=== PATIENT | female | born 1955 | race African-American/Black ===

== ENCOUNTER 2018-03-08 08:02 | Inpatient (IN) | payer OTHER ==
[~2018-03-08] VITALS: Ht 162.6 cm; Wt 102.1 kg
--- OUTSIDE RECORDS SUMMARY | 2018-03-08 14:56 | XMS REPORT | Clinical Summary ---
Author Author [facility] Address Unknown Phone Unavailable Care Team Providers Care Watch Parts Inspector Name Role Phone PCP Unavailable Allergies No Known Allergies Current Medications Prescription Sig. Disp. Refills Start End Date Status Date dulaglutide 1.5 mg/0.5 mL Inject 1.5 mg Active PnIj subcutaneously every 7 days. insulin glargine (LANTUS) Inject subcutaneously Active 100 unit/mL injection nightly 300 units/ ml . amLODIPine (NORVASC) 10 Take 10 mg by mouth Active MG tablet daily. lovastatin (MEVACOR) 20 Take 20 mg by mouth Active MG tablet nightly. lisinopril Take 20 mg by mouth Active (PRINIVIL,ZESTRIL) 20 MG daily. tablet b complex vitamins tablet Take 1 tablet by mouth Active daily. acetaminophen (TYLENOL) Take 500 mg by mouth Active 500 MG tablet every 6 (six) hours as needed for Pain. carvedilol (COREG) 25 MG Take 25 mg by mouth 2 Active tablet (two) times daily with breakfast and dinner. aspirin 81 MG EC tablet Take 81 mg by mouth Active daily. spironolactone Take 50 mg by mouth 2 Active (ALDACTONE) 50 MG tablet (two) times daily. insulin lispro (HUMALOG) Inject 10 Units Active 100 unit/mL InPn subcutaneously 3 (three) times daily with meals. brimonidine (ALPHAGAN P) every 8 (eight) hours. Active 0.1 % Drop sulfamethoxazole-trimetho Take 1 tablet by mouth 2 03/20/20 Discontin prim (BACTRIM DS) 800-160 (two) times daily. 17 ued mg per tablet amoxicillin-clavulanate Take 1 tablet by mouth 2 03/20/20 Discontin (AUGMENTIN) 875-125 mg (two) times daily. 17 ued per tablet canagliflozin (INVOKANA) Take 300 mg by mouth 03/20/20 Discontin 300 mg tablet daily. 17 ued esomeprazole (NEXIUM) 40 Take 40 mg by mouth 03/20/20 Discontin MG capsule daily. 17 ued tobramycin-dexamethasone 1 drop every 4 (four) 03/20/20 Discontin (TOBRADEX) 0.3-0.1 % hours while awake. 17 ued ophthalmic solution moxifloxacin (VIGAMOX) 1 drop 3 (three) times 03/20/20 Discontin 0.5 % ophthalmic solution daily. 17 ued hydrALAZINE (APRESOLINE) Take 1 tablet (25 mg 90 tablet 11 05/25/20 05/25/20 25 MG tablet total) by mouth 3 (three) 16 17 times daily. Active Problems Problem Noted Date Syncope, unspecified syncope type 01/17/2017 Hypertensive urgency 01/17/2017 Dysuria 01/17/2017 Chest pain, unspecified 05/23/2016 Coronary artery disease Diabetes mellitus (HCC) Hypertension Encounters Date Type Specialty Care Team Description 03/20/2017 Emergency Emergency Medicine Beulah Park MD Altered mental status, unspecified altered mental status type;Abnormal blood sugar 03/20/2017 Orders Only General Internal Medicine after 03/07/2017 Social History Tobacco Use Types Packs/Day Years Used Date Never Smoker Alcohol Use Drinks/Week oz/Week Comments No Sex Assigned at Date Recorded Not on file Last Filed Vital Signs Vital Sign Reading Time Taken Blood Pressure 153/67 03/20/2017 11:00 PM CDT Pulse 70 03/20/2017 11:00 PM CDT Temperature 36.3 C (97.4 F) 03/20/2017 9:08 PM CDT Respiratory Rate 16 03/20/2017 11:00 PM CDT Oxygen Saturation 99% 03/20/2017 11:00 PM CDT Inhaled Oxygen - - Concentration Weight 98 kg (216 lb) 03/20/2017 9:08 PM CDT Height 167.6 cm (5' 6") 03/20/2017 9:08 PM CDT Body Mass Index 34.86 03/20/2017 9:08 PM CDT Plan of Treatment Not on file Results * ED ECG Interpretation (03/20/2017 11:38 PM) Narrative Beulah Park MD 03/20/2017 11:38 PM History Chief Complaint Patient presents with Altered Mental Status HPI Comments: 61 y/o female presents with altered mental status, difficult to arouse, onset 1300. Per family, patient appears altered, checked her blood sugar and it was in low 50s.Gave juice and sent to ER. Patient with h/o CVA, with chronic LUE weakness. Denies vomiting. Report symptom has since improved. Patient report poor appetite and only had 1 ensure today. Given insulin without checking blood sugar. Patient is a 61 y.o. female presenting with altered mental status. The history is provided by the patient and a relative. No language teacher was used. Altered Mental Status This is a new problem. The problem has not changed since onset.Associated symptoms include confusion and unresponsiveness. Pertinent negatives include no fever. The altered mental status is exacerbated by nothing. No Known Allergies Past Medical History Diagnosis Date Coronary artery disease Diabetes mellitus (HCC) Hypertension Asthma Stroke (HCC) Past Surgical History Procedure Laterality Date Hysterectomy Other surgical history loop recorder History reviewed. No pertinent family history. History Substance Use Topics Smoking status: Never Smoker Smokeless tobacco: Not on file Alcohol Use: No Review of Systems Constitutional: Negative for fever. Gastrointestinal: Negative for vomiting. Skin: Negative for rash. Psychiatric/Behavioral: Positive for confusion. All other systems reviewed and are negative. Physical Exam BP 154/78 | Pulse 74 | Temp(Src) 97.4 F (36.3 C) (Oral) | Resp 20 | Ht 1.676 m (5' 6") | Wt 97.977 kg (216 lb) | BMI 34.88 kg/m2 Physical Exam Nursing note and vitals reviewed. Constitutional: She is oriented to person, place, and time. She appears well-developed and well-nourished. No distress. HENT: Head: Normocephalic and atraumatic. Eyes: Right eye exhibits no discharge. Left eye exhibits no discharge. Neck: No tracheal deviation present. Cardiovascular: Normal rate and regular rhythm. Pulmonary/Chest: Effort normal and breath sounds normal. No stridor. No respiratory distress. Abdominal: Soft. Bowel sounds are normal. There is no tenderness. Musculoskeletal: Normal range of motion. She exhibits edema ( +1 pitting edema). She exhibits no tenderness. Neurological: She is alert and oriented to person, place, and time. No cranial nerve deficit. Skin: Skin is warm and dry. She is not diaphoretic. Psychiatric: She has a normal mood and affect. Her behavior is normal. Neurologic Exam Mental Status Oriented to person, place, and time. Ortho Exam ED Course ECG/EKG Interpretation Date/Time: 03/20/2017 11:36 PM Performed by: BEULAH PARK Authorized by: BEULAH PARK The ECG was interpreted by ED physician. The ECG is interpreted as sinus rhythm. Rate is normal rate. Heart rate is [address] segments normal. ECG reviewed and does not meet STEMI criteria. MDM Number of Diagnoses or Management Options Abnormal blood sugar: established and worsening Altered mental status, unspecified altered mental status type: new and requires workup Amount and/or Complexity of Data Reviewed Clinical lab tests: reviewed and ordered Tests in the radiology section of CPT: ordered and reviewed Risk of Complications, Morbidity, and/or Mortality Presenting problems: high Diagnostic procedures: moderate Management options: moderate Patient Progress Patient progress: stable Clinical Impression 1. Altered mental status, unspecified altered mental status type 2. Abnormal blood sugar Discharge Medications Medication List ASK your doctor about these medications acetaminophen 500 MG tabletCommonly known as:TYLENOL amLODIPine 10 MG tabletCommonly known as:NORVASC aspirin 81 MG EC tablet b complex vitamins tablet brimonidine 0.1 % DropCommonly known as:ALPHAGAN P carvedilol 25 MG tabletCommonly known as:COREG dulaglutide 1.5 mg/0.5 mL Pnij hydrALAZINE 25 MG tabletCommonly known as:APRESOLINETake 1 tablet (25 mg total) by mouth 3 (three) times daily. insulin glargine 100 unit/mL injectionCommonly known as:LANTUS insulin lispro 100 unit/mL InpnCommonly known as:HumaLOG lisinopril 20 MG tabletCommonly known as:PRINIVIL,ZESTRIL lovastatin 20 MG tabletCommonly known as:MEVACOR spironolactone 50 MG tabletCommonly known as:ALDACTONE Plan Symptoms c/w hypoglycemia. BS in ER improving. Patient eating sandwich in ER. Comfortable, in NAD. Family at bedside. Patient has returned to baseline. On re-eval, pt is improved, comfortable, in NAD, with normal mental status, ambulatory in ED, and tolerating PO.Vital signs stable.No emergent need for hospitalization is identified at this time.D/w pt close f/u instructions for within 24-48 hrs, as well as specific return precautions to ED.RN notes acknowledged, differences noted.All history and exam data obtained on date of service. Provided with anticipatory guidance, strict return precautions, and discharge instructions.Patient verbalizes understanding and will have follow up. Procedure Note Beulah Park MD - 03/20/2017 11:23 PM CDT Formatting of this note may be different from the original. History Chief Complaint Patient presents with Altered Mental Status HPI Comments: 61 y/o female presents with altered mental status, difficult to arouse, onset 1300. Per family, patient appears altered, checked her blood sugar and it was in low 50s. Gave juice and sent to ER. Patient with h/o CVA, with chronic LUE weakness. Denies vomiting. Report symptom has since improved. Patient report poor appetite and only had 1 ensure today. Given insulin without checking blood sugar. Patient is a 61 y.o. female presenting with altered mental status. The history is provided by the patient and a relative. No language teacher was used. Altered Mental Status This is a new problem. The problem has not changed since onset.Associated symptoms include confusion and unresponsiveness. Pertinent negatives include no fever. The altered mental status is exacerbated by nothing. No Known Allergies Past Medical History Diagnosis Date Coronary artery disease Diabetes mellitus (HCC) Hypertension Asthma Stroke (HCC) Past Surgical History Procedure Laterality Date Hysterectomy Other surgical history loop recorder History reviewed. No pertinent family history. History Substance Use Topics Smoking status: Never Smoker Smokeless tobacco: Not on file Alcohol Use: No Review of Systems Constitutional: Negative for fever. Gastrointestinal: Negative for vomiting. Skin: Negative for rash. Psychiatric/Behavioral: Positive for confusion. All other systems reviewed and are negative. Physical Exam BP 154/78 | Pulse 74 | Temp(Src) 97.4 F (36.3 C) (Oral) | Resp 20 | Ht 1.676 m (5' 6") | Wt 97.977 kg (216 lb) | BMI 34.88 kg/m2 Physical Exam Nursing note and vitals reviewed. Constitutional: She is oriented to person, place, and time. She appears well- developed and well-nourished. No distress. HENT: Head: Normocephalic and atraumatic. Eyes: Right eye exhibits no discharge. Left eye exhibits no discharge. Neck: No tracheal deviation present. Cardiovascular: Normal rate and regular rhythm. Pulmonary/Chest: Effort normal and breath sounds normal. No stridor. No respiratory distress. Abdominal: Soft. Bowel sounds are normal. There is no tenderness. Musculoskeletal: Normal range of motion. She exhibits edema ( +1 pitting edema) . She exhibits no tenderness. Neurological: She is alert and oriented to person, place, and time. No cranial nerve deficit. Skin: Skin is warm and dry. She is not diaphoretic. Psychiatric: She has a normal mood and affect. Her behavior is normal. Neurologic Exam Mental Status Oriented to person, place, and time. Ortho Exam ED Course ECG/EKG Interpretation Date/Time: 03/20/2017 11:36 PM Performed by: BEULAH PARK Authorized by: BEULAH PARK The ECG was interpreted by ED physician. The ECG is interpreted as sinus rhythm. Rate is normal rate. Heart rate is [address] segments normal. ECG reviewed and does not meet STEMI criteria. MDM Number of Diagnoses or Management Options Abnormal blood sugar: established and worsening Altered mental status, unspecified altered mental status type: new and requires workup Amount and/or Complexity of Data Reviewed Clinical lab tests: reviewed and ordered Tests in the radiology section of CPT: ordered and reviewed Risk of Complications, Morbidity, and/or Mortality Presenting problems: high Diagnostic procedures: moderate Management options: moderate Patient Progress Patient progress: stable Clinical Impression 1. Altered mental status, unspecified altered mental status type 2. Abnormal blood sugar Discharge Medications Medication List ASK your doctor about these medications acetaminophen 500 MG tablet Commonly known as: TYLENOL amLODIPine 10 MG tablet Commonly known as: NORVASC aspirin 81 MG EC tablet b complex vitamins tablet brimonidine 0.1 % Drop Commonly known as: ALPHAGAN P carvedilol 25 MG tablet Commonly known as: COREG dulaglutide 1.5 mg/0.5 mL Pnij hydrALAZINE 25 MG tablet Commonly known as: APRESOLINE Take 1 tablet (25 mg total) by mouth 3 (three) times daily. insulin glargine 100 unit/mL injection Commonly known as: LANTUS insulin lispro 100 unit/mL Inpn Commonly known as: HumaLOG lisinopril 20 MG tablet Commonly known as: PRINIVIL,ZESTRIL lovastatin 20 MG tablet Commonly known as: MEVACOR spironolactone 50 MG tablet Commonly known as: ALDACTONE Plan Symptoms c/w hypoglycemia. BS in ER improving. Patient eating sandwich in ER. Comfortable, in NAD. Family at bedside. Patient has returned to baseline. On re-eval, pt is improved, comfortable, in NAD, with normal mental status, ambulatory in ED, and tolerating PO. Vital signs stable. No emergent need for hospitalization is identified at this time. D/w pt close f/u instructions for within 24-48 hrs, as well as specific return precautions to ED. RN notes acknowledged, differences noted. All history and exam data obtained on date of service. Provided with anticipatory guidance, strict return precautions, and discharge instructions. Patient verbalizes understanding and will have follow up. Beulah Park MD 03/20/17 [id number] * Rapid drug screen, urine (03/20/2017 10:13 PM) Component Value Ref Range Barbiturate Screen Negative Negative Benzodiazepine Screen Negative Negative Cocaine (Metab.) Screen Negative Negative Methadone Screen Negative Negative Opiate Screen Negative Negative Cannabinoid Screen Negative Negative Amph/Methamph Screen Negative Negative Phencyclidine Screen Negative Negative Oxycodone Screen Negative Negative Specimen Performing Laboratory Urine [facility] [address] [address] Narrative DRUGCUTOFF CONC. Cocaine 300 ng/mL [id number] ng/mL [id number] ng/mL Barbiturate 200 ng/mL [id number] ng/mL [id number] ng/mL Methadone 300 ng/mL Amphetamine/ 1000 ng/mL Methamphetamine Oxycodone 300 ng/mL * Urinalysis w/ Microscopic (03/20/2017 10:13 PM) Component Value Ref Range Color, UA Yellow Clarity, UA Hazy Specific [place], UA 1.013 1.001 - 1.035 pH, UA 6.0 5.0 - 8.0 Protein, UA 600 mg/dL (A) Negative Glucose, UA Negative Negative Ketones, UA Negative Negative Bilirubin, UA Negative Negative Blood, UA Trace (A) Negative Nitrite, UA Negative Negative Leukocytes, UA Negative Negative Urobilinogen, UA 0.2 0.2 - 1.0 mg/dL RBC, UA Comment: None Seen /HPF WBC, UA Comment: None Seen /HPF Bacteria, UA Few Specimen Source Specimen Performing Laboratory Urine [address] [address] * ECG 12 lead (03/20/2017 9:41 PM) Specimen Performing Laboratory GE MUSE Narrative Ventricular Rate 74 BPM Atrial Rate 74 BPM P-R Interval 162 ms QRS Duration 102 ms Q-T Interval 454 ms QTC Calculation(Bazett) 503 ms P [place] 73 degrees R [place] 66 degrees T [place] 51 degrees Normal sinus rhythm Prolonged QT Abnormal ECG When compared with ECG of 11-FEB-2017 18:32, Incomplete right bundle branch block is no longer Present Confirmed by Jeff MIJARES MICHAEL ([id number]) on 03/21/2017 6:49:24 AM Procedure Note Interface, External Ris In - 03/21/2017 6:49 AM CDT Ventricular Rate 74 BPM Atrial Rate 74 BPM P-R Interval 162 ms QRS Duration 102 ms Q-T Interval 454 ms QTC Calculation(Bazett) 503 ms P [place] 73 degrees R [place] 66 degrees T [place] 51 degrees Normal sinus rhythm Prolonged QT Abnormal ECG When compared with ECG of 11-FEB-2017 18:32, Incomplete right bundle branch block is no longer Present Confirmed by Jeff MIJARES MICHAEL ([id number]) on 03/21/2017 6:49:24 AM * PT/PTT (03/20/2017 9:35 PM) Component Value Ref Range Protime 14.8 (H) 11.7 - 14.7 seconds INR 1.2 <=5.9 PTT 33.3 22.5 - 36.0 seconds Specimen Performing Laboratory Blood [address] [address] Narrative RECOMMENDED COUMADIN/WARFARIN INR THERAPY RANGES STANDARD DOSE: 2.0 - 3.0 Includes: PROPHYLAXIS for venous thrombosis, systemic embolization; TREATMENT for venous thrombosis and/or pulmonary embolus. HIGH RISK: Target INR is 2.5-3.5 for patients with mechanical heart valves. * CBC with platelet count + automated diff (03/20/2017 9:35 PM) Component Value Ref Range WBC 8.3 4.0 - 10.0 K/ L RBC 4.04 4.00 - 5.00 M/ L Hemoglobin 10.7 (L) 12.0 - 15.0 GM/DL Hematocrit 32.8 (L) 36.0 - 45.0 % MCV 81.1 (L) 82.0 - 99.0 fL MCH 26.4 (L) 27.0 - 33.0 pg MCHC 32.6 32.0 - 36.0 GM/DL RDW 14.8 (H) 10.3 - 14.2 % Platelets 232 150 - 430 K/CU MM MPV 8.5 6.5 - 10.5 fL nRBC 0 0 - 0 /100 WBC % Neutros 82 % % Lymphs 14 % % Monos 3 % % Eos 1 % % Baso 0 % # Neutros 6.76 1.80 - 8.00 K/ L # Lymphs 1.18 (L) 1.48 - 4.50 K/ L # Monos 0.21 0.00 - 1.30 K/ L # Eos 0.08 0.00 - 0.50 K/ L # Baso 0.03 0.00 - 0.20 K/ L Specimen Performing Laboratory Blood [address] [address] Narrative 0.00 * Troponin I (03/20/2017 9:35 PM) Component Value Ref Range Troponin I <0.01 0.00 - 0.03 ng/mL Specimen Performing Laboratory Blood [address] [address] Narrative Effective 10/01/2014: Reference Range Change New: 0.00-0.03 Previous 0.00-0.15 Troponin I (TnI) levels must be interpreted in the context of the presenting symptoms and the clinical findings. Elevated TnI levels indicate myocardial damage, but are not specific for ischemic heart disease. Elevated TnI levels are seen in patients with other cardiac conditions (including myocarditis and congestive heart failure), and slight TnI elevations occur in patients with other conditions, including sepsis, renal failure, acidosis, acute neurological disease, and persistent tachyarrhythmia. Order for age greater than 18 with no history of head injury or liver disease patients of any age Order for age greater than 18 with no history of head injury or liver disease patients of any age * CBC with platelet count + automated diff (03/20/2017 9:35 PM) Specimen Performing Laboratory Blood Narrative The following orders were created for panel order CBC with platelet count + automated diff. Procedure Abnormality Status --------- - ------ CBC with platelet count ...[[id number]]AbnormalFinal result Please view results for these tests on the individual orders. * Phosphorus (03/20/2017 9:35 PM) Component Value Ref Range Phosphorus 3.6 2.3 - 4.7 mg/dL Specimen Performing Laboratory Blood [address] [address] Narrative Order for age greater than 18 with no history of head injury or liver disease patients of any age Order for age greater than 18 with no history of head injury or liver disease patients of any age * Magnesium (03/20/2017 9:35 PM) Component Value Ref Range Magnesium 1.9 1.6 - 2.6 mg/dL Specimen Performing Laboratory Blood [address] [address] Narrative Order for age greater than 18 with no history of head injury or liver disease patients of any age Order for age greater than 18 with no history of head injury or liver disease patients of any age * CK total and CKMB (03/20/2017 9:35 PM) Component Value Ref Range Total CK 215 (H) 29 - 200 U/L CK-MB 1.0 0.0 - 6.6 ng/mL MB Relative Index 0.5 % Specimen Performing Laboratory Blood [address] [address] Narrative Effective 10/01/2014: CK-MB Reference Range Change New: 0.0-6.6Previous: 0.0-4.9 CK-MB Reference Range: <6.7Normal 6.7-10.0Borderline >10.0 Abnormal Order for age greater than 18 with no history of head injury or liver disease patients of any age Order for age greater than 18 with no history of head injury or liver disease patients of any age Order for age greater than 18 with no history of head injury or liver disease patients of any age Order for age greater than 18 with no history of head injury or liver disease patients of any age * Basic Metabolic Panel (03/20/2017 9:35 PM) Component Value Ref Range Sodium 141 136 - 145 meq/L Potassium 3.9 3.5 - 5.1 meq/L Chloride 112 (H) 98 - 107 meq/L CO2 19 (L) 22 - 29 meq/L BUN 19 7 - 21 mg/dL Creatinine 1.21 0.57 - 1.25 mg/dL Glucose 224 (H) 70 - 105 mg/dL Calcium 9.4 8.4 - 10.2 mg/dL EGFR 55Comment: ESTIMATED GFR IS NOT ACCURATE mL/min/1.73 sq m CREATININE CLEARANCE IN PREDICTING GLOMERULAR FILTRATION RATE. ESTIMATED GFR IS NOT APPLICABLE FOR DIALYSIS PATIENTS. Specimen Performing [place] [address] Narrative Order for age greater than 18 with no history of head injury or liver disease patients of any age Order for age greater than 18 with no history of head injury or liver disease patients of any age * CT brain without IV contrast (03/20/2017 9:26 PM) Specimen Performing Laboratory [facility] Narrative FINAL REPORT Examination: CT brain without contrast. HISTORY: confusion Comparison:February 11, 2017 TECHNIQUE:5mm sequential noncontrast axial CT images from the base to apex of the brain. This exam was performed to our departmental dose optimization program which includes automated exposure control, adjustment of the mA and/or kV according to patient size and/or use of iterative reconstruction techniques. FINDINGS:The ventricles and sulci are mildly prominent. Multifocal periventricular deep white matter hypodensities are present. Cavernous carotid calcifications..No acute hemorrhage, infarction, mass or midline shift. The paranasal sinuses and mastoid air cells are clear. Demonstrated orbits are unremarkable. Bilateral lens replacements. No significant soft tissue swelling. Calvarium is intact. IMPRESSION:No acute intracranial abnormality. Chronic ischemic changes and volume loss. Signed: Danny Padron MD Report Verified Date/Time:03/20/2017 21:42:55 Reading Location: [address] Transitional Reading Room Procedure Note Interface, External Ris In - 03/20/2017 9:48 PM CDT FINAL REPORT Examination: CT brain without contrast. HISTORY: confusion Comparison:February 11, 2017 TECHNIQUE: 5mm sequential noncontrast axial CT images from the base to apex of the brain. This exam was performed to our departmental dose optimization program which includes automated exposure control, adjustment of the mA and/or kV according to patient size and/or use of iterative reconstruction techniques. FINDINGS: The ventricles and sulci are mildly prominent. Multifocal periventricular deep white matter hypodensities are present. Cavernous carotid calcifications.. No acute hemorrhage, infarction, mass or midline shift. The paranasal sinuses and mastoid air cells are clear. Demonstrated orbits are unremarkable. Bilateral lens replacements. No significant soft tissue swelling. Calvarium is intact. IMPRESSION: No acute intracranial abnormality. Chronic ischemic changes and volume loss. Signed: Danny Padron MD Report Verified Date/Time: 03/20/2017 21:42:55 Reading Location: [facility] Transitional Reading Room after 03/07/2017
--- OUTSIDE RECORDS SUMMARY | 2018-03-08 14:56 | XMS REPORT ---
Author Author [facility] Address Unknown Phone Unavailable Care Team Providers Care Retail Department Manager Name Role Phone BEULAH PARK Unavailable Unavailable BEERAVEL Espinoza Unavailable Unavailable Problems This patient has no known problems. Allergies, Adverse Reactions, Alerts This patient has no known allergies or adverse reactions. Medications This patient has no known medications. Results Test Description Test Time Test Comments Text Results Atomic Results Result Comments RAPID DRUG SCREEN, URINE 2017-03-20 22:45:00 BARBITURATE URINE (BEAKER) (test uxiq=482) Negative Negative BENZODIAZEPINE SCREEN URINE (BEAKER) (test krwp=610) Negative Negative COCAINE (METAB.) SCREEN (BEAKER) (test bmmi=2504) Negative Negative METHADONE SCREEN (BEAKER) (test cbnn=9803) Negative Negative OPIATE SCREEN URINE (BEAKER) (test zvmw=878) Negative Negative CANNABINOID SCREEN URINE (BEAKER) (test sglj=159) Negative Negative AMPH/METHAMPH SCREEN (BEAKER) (test fatu=8759) Negative Negative PHENCYCLIDINE SCREEN URINE (BEAKER) (test mjkd=321) Negative Negative OXYCODONE SCREEN URINE (BEAKER) (test jmks=5463) Negative Negative DRUG CUTOFF CONC.Cocaine 300 ng/mL Cannabinoid 50 ng/mL Benzodiazepine 200 ng/mLBarbiturate 200 ng/ mLPhencyclidine 25 ng/mLOpiate 300 ng/mLMethadone 300 ng/mLAmphetamine/ 1000 ng/mL MethamphetamineOxycodone 300 ng/mLURINALYSIS W/ [id number] 22:37:00* Test Item Value Reference Range Comments COLOR (BEAKER) (test zegy=031) Yellow CLARITY (BEAKER) (test jclc=915) Hazy SPECIFIC GRAVITY UA (BEAKER) (test duqm=570) 1.013 1.001-1.035 PH UA (BEAKER) (test csrv=715) 6.0 5.0-8.0 PROTEIN UA (BEAKER) (test andk=111) 600 mg/dL Negative GLUCOSE UA (BEAKER) (test flpo=930) Negative Negative KETONES UA (BEAKER) (test oxju=230) Negative Negative BILIRUBIN UA (BEAKER) (test seun=415) Negative Negative BLOOD UA (BEAKER) (test ajvs=933) Trace Negative NITRITE UA (BEAKER) (test xotw=485) Negative Negative LEUKOCYTE ESTERASE UA (BEAKER) (test otfc=309) Negative Negative UROBILINOGEN UA (BEAKER) (test zisw=275) 0.2 mg/dL 0.2-1.0 RBC UA (BEAKER) (test xnzu=794) /HPF None Seen WBC UA (BEAKER) (test emqz=422) /HPF None Seen BACTERIA (BEAKER) (test knoe=077) Few SOURCE(BEAKER) (test wxvo=2834) CREATINE KINASE (CK), TOTAL AND [id number] 22:22:00* Test Item Value Reference Range Comments CREATINE KINASE TOTAL (BEAKER) (test erii=540) 215 U/L 29-200 CREATINE KINASE-MB (BEAKER) (test nwar=166) 1.0 ng/mL 0.0-6.6 CREATINE KINASE-MB INDEX (BEAKER) (test zcqh=473) 0.5 % Effective 10/01/2014: CK-MB Reference Range ChangeNew: 0.0-6.6 Previous: 0.0- 4.9CK-MB Reference Range:<6.7 Normal6.7-10.0 Borderline>10.0 AbnormalOrder for age greater than 18 with no history of head injury or liver disease patients of any ageOrder for age greater than 18 with no history of head injury or liver disease patients of any ageOrder for age greater than 18 with no history of head injury or liver disease patients of any ageOrder for age greater than 18 with no history of head injury or liver disease patients of any ageTROPONIN [id number] 22:22:00* Test Item Value Reference Range Comments TROPONIN I (BEAKER) (test cnng=670) < ng/mL 0.00-0.03 Effective 10/01/2014: Reference Range ChangeNew: 0.00-0.03 Previous 0.00- 0.15Troponin I (TnI) levels must be interpreted in [...] failure, acidosis, acute neurological disease, and persistent tachyarrhythmia.Order for age greater than 18 with no history of head injury or liver disease patients of any ageOrder for age greater than 18 with no history of head injury or liver disease patients of any [id number] 22:16:00* Test Item Value Reference Range Comments PHOSPHORUS (BEAKER) (test cgjf=298) 3.6 mg/dL 2.3-4.7 Order for age greater than 18 with no history of head injury or liver disease patients of any ageOrder for age greater than 18 with no history of head injury or liver disease patients of any [id number] 22:16:00* Test Item Value Reference Range Comments MAGNESIUM (BEAKER) (test cjsi=397) 1.9 mg/dL 1.6-2.6 Order for age greater than 18 with no history of head injury or liver disease patients of any ageOrder for age greater than 18 with no history of head injury or liver disease patients of any ageBASIC METABOLIC [id number] 22:16:00* Test Item Value Reference Range Comments SODIUM (BEAKER) (test vurv=604) 141 meq/L 136-145 POTASSIUM (BEAKER) (test gplx=685) 3.9 meq/L 3.5-5.1 CHLORIDE (BEAKER) (test prro=573) 112 meq/L 98-107 CO2 (BEAKER) (test vgki=115) 19 meq/L 22-29 BLOOD UREA NITROGEN (BEAKER) (test jiwn=086) 19 mg/dL 7-21 CREATININE (BEAKER) (test gahp=597) 1.21 mg/dL 0.57-1.25 GLUCOSE RANDOM (BEAKER) (test crxo=849) 224 mg/dL 70-105 CALCIUM (BEAKER) (test hdmr=869) 9.4 mg/dL 8.4-10.2 EGFR (BEAKER) (test jhcb=2980) 55 mL/min/1.73 sq m ESTIMATED GFR IS NOT ACCURATE CREATININE CLEARANCE IN PREDICTING GLOMERULAR FILTRATION RATE. ESTIMATED GFR IS NOT APPLICABLE FOR DIALYSIS PATIENTS. Order for age greater than 18 with no history of head injury or liver disease patients of any ageOrder for age greater than 18 with no history of head injury or liver disease patients of any agePT/[id number] 22:02:00* Test Item Value Reference Range Comments PROTIME (BEAKER) (test oiyx=685) 14.8 seconds 11.7-14.7 INR (BEAKER) (test fjkh=844) 1.2 <=5.9 PARTIAL THROMBOPLASTIN TIME (BEAKER) (test cqsm=880) 33.3 seconds 22.5-36.0 RECOMMENDED COUMADIN/WARFARIN INR THERAPY RANGESSTANDARD DOSE: 2.0 - 3.0 Includes: PROPHYLAXIS for venous thrombosis, systemic embolization; TREATMENT for venous thrombosis and/or pulmonary embolus.HIGH RISK: Target INR is 2.5-3.5 for patients with mechanical heart valves.CBC W/PLT COUNT & AUTO [id number] 21:53:00* Test Item Value Reference Range Comments WHITE BLOOD CELL COUNT (BEAKER) (test ciip=646) 8.3 K/ L 4.0-10.0 RED BLOOD CELL COUNT (BEAKER) (test tank=632) 4.04 M/ L 4.00-5.00 HEMOGLOBIN (BEAKER) (test wsii=513) 10.7 GM/DL 12.0-15.0 HEMATOCRIT (BEAKER) (test nhhz=217) 32.8 % 36.0-45.0 MEAN CORPUSCULAR VOLUME (BEAKER) (test sgvp=066) 81.1 fL 82.0-99.0 MEAN CORPUSCULAR HEMOGLOBIN (BEAKER) (test msli=494) 26.4 pg 27.0-33.0 MEAN CORPUSCULAR HEMOGLOBIN CONC (BEAKER) (test lccx=161) 32.6 GM/DL 32.0- 36.0 RED CELL DISTRIBUTION WIDTH (BEAKER) (test jlyk=958) 14.8 % 10.3-14.2 PLATELET COUNT (BEAKER) (test alff=808) 232 K/CU MM 150-430 MEAN PLATELET VOLUME (BEAKER) (test ywhf=903) 8.5 fL 6.5-10.5 NUCLEATED RED BLOOD CELLS (BEAKER) (test mgpu=307) 0 /100 WBC 0-0 NEUTROPHILS RELATIVE PERCENT (BEAKER) (test pomg=004) 82 % LYMPHOCYTES RELATIVE PERCENT (BEAKER) (test lzyl=648) 14 % MONOCYTES RELATIVE PERCENT (BEAKER) (test usuu=639) 3 % EOSINOPHILS RELATIVE PERCENT (BEAKER) (test vgir=139) 1 % BASOPHILS RELATIVE PERCENT (BEAKER) (test cxae=768) 0 % NEUTROPHILS ABSOLUTE COUNT (BEAKER) (test ewfa=068) 6.76 K/ L 1.80-8.00 LYMPHOCYTES ABSOLUTE COUNT (BEAKER) (test hkuj=598) 1.18 K/ L 1.48-4.50 MONOCYTES ABSOLUTE COUNT (BEAKER) (test amfe=378) 0.21 K/ L 0.00-1.30 EOSINOPHILS ABSOLUTE COUNT (BEAKER) (test zmzp=148) 0.08 K/ L 0.00-0.50 BASOPHILS ABSOLUTE COUNT (BEAKER) (test dzpq=973) 0.03 K/ L 0.00-0.20 0.00URINE [id number] 08:49:00* Test Item Value Reference Range Comments CULTURE (BEAKER) (test jfno=1958) STAPHYLOCOCCUS AUREUS >100,000 col/mL Staphylococcus aureus Clindamycin (test code=10) Erythromycin (test code=4) Linezolid (test code=40) Nitrofurantoin (test code=23) Oxacillin (test code=14) Rifampin (test code=43) Tetracycline (test code=2) Trimethoprim + Sulfamethoxazole (test code=47) Vancomycin (test code=13) 20-29,000 col/mL skin floraURINALYSIS W/ [id number] 00:33:00* Test Item Value Reference Range Comments COLOR (BEAKER) (test spms=213) Yellow CLARITY (BEAKER) (test wouv=878) Hazy SPECIFIC GRAVITY UA (BEAKER) (test jfqd=741) 1.012 1.001-1.035 PH UA (BEAKER) (test qctr=043) 6.0 5.0-8.0 PROTEIN UA (BEAKER) (test klvx=766) 600 mg/dL Negative GLUCOSE UA (BEAKER) (test sxzs=800) Negative Negative KETONES UA (BEAKER) (test dyaf=763) Negative Negative BILIRUBIN UA (BEAKER) (test fkoa=949) Negative Negative BLOOD UA (BEAKER) (test xtix=202) Negative Negative NITRITE UA (BEAKER) (test yntw=937) Negative Negative LEUKOCYTE ESTERASE UA (BEAKER) (test gbto=915) Small Negative UROBILINOGEN UA (BEAKER) (test eley=575) 0.2 mg/dL 0.2-1.0 RBC UA (BEAKER) (test chbg=189) 2 /HPF WBC UA (BEAKER) (test cpgi=511) 8 /HPF BACTERIA (BEAKER) (test yshs=461) Rare SQUAMOUS EPITHELIAL (BEAKER) (test hshe=734) 9 /HPF HYALINE CASTS (BEAKER) (test pnxe=787) 4 /LPF AMORPHOUS CRYSTALS (BEAKER) (test zsqc=8957) Occasional SOURCE(BEAKER) (test xxzv=4402) Urine, Voided [id number] 19:36:00* Test Item Value Reference Range Comments PROTIME (BEAKER) (test dijc=524) 14.2 seconds 11.7-14.7 INR (BEAKER) (test pkpf=322) 1.1 <=5.9 PARTIAL THROMBOPLASTIN TIME (BEAKER) (test aotq=864) 36.8 seconds 22.5-36.0 RECOMMENDED COUMADIN/WARFARIN INR THERAPY RANGESSTANDARD DOSE: 2.0 - 3.0 Includes: PROPHYLAXIS for venous thrombosis, systemic embolization; TREATMENT for venous thrombosis and/or pulmonary embolus.HIGH RISK: Target INR is 2.5-3.5 for patients with mechanical heart valves.CREATINE KINASE (CK), TOTAL AND [id number] 19:31:00* Test Item Value Reference Range Comments CREATINE KINASE TOTAL (BEAKER) (test gsri=695) 132 U/L 29-200 CREATINE KINASE-MB (BEAKER) (test iute=358) 0.4 ng/mL 0.0-6.6 CREATINE KINASE-MB INDEX (BEAKER) (test zkgu=856) 0.3 % Effective 10/01/2014: CK-MB Reference Range ChangeNew: 0.0-6.6 Previous: 0.0- 4.9CK-MB Reference Range:<6.7 Normal6.7-10.0 Borderline>10.0 AbnormalTROPONIN [id number] 19:31:00* Test Item Value Reference Range Comments TROPONIN I (BEAKER) (test sekp=554) < ng/mL 0.00-0.03 Effective 10/01/2014: Reference Range ChangeNew: 0.00-0.03 Previous 0.00- 0.15Troponin I (TnI) levels must be interpreted in [...] failure, acidosis, acute neurological disease, and persistent tachyarrhythmia.B-TYPE NATRIURETIC FACTOR (BNP)2017-02-11 19:30:00* Test Item Value Reference Range Comments B-TYPE NATRIURETIC PEPTIDE (BEAKER) (test fqxy=312) 81 pg/mL 0-100 [id number] 19:24:00* Test Item Value Reference Range Comments MAGNESIUM (BEAKER) (test micw=681) 1.8 mg/dL 1.6-2.6 BASIC METABOLIC [id number] 19:24:00* Test Item Value Reference Range Comments SODIUM (BEAKER) (test evza=240) 144 meq/L 136-145 POTASSIUM (BEAKER) (test jghs=170) 3.4 meq/L 3.5-5.1 CHLORIDE (BEAKER) (test hhmu=842) 115 meq/L 98-107 CO2 (BEAKER) (test ekgr=290) 20 meq/L 22-29 BLOOD UREA NITROGEN (BEAKER) (test sosp=200) 13 mg/dL 7-21 CREATININE (BEAKER) (test dpjp=785) 1.25 mg/dL 0.57-1.25 GLUCOSE RANDOM (BEAKER) (test muai=103) 77 mg/dL 70-105 CALCIUM (BEAKER) (test wdvw=174) 8.6 mg/dL 8.4-10.2 EGFR (BEAKER) (test wnyr=1647) 53 mL/min/1.73 sq m ESTIMATED GFR IS NOT ACCURATE CREATININE CLEARANCE IN PREDICTING GLOMERULAR FILTRATION RATE. ESTIMATED GFR IS NOT APPLICABLE FOR DIALYSIS PATIENTS. CBC W/PLT COUNT & AUTO [id number] 19:21:00* Test Item Value Reference Range Comments WHITE BLOOD CELL COUNT (BEAKER) (test oosc=223) 9.0 K/ L 4.0-10.0 RED BLOOD CELL COUNT (BEAKER) (test rcpf=967) 3.90 M/ L 4.00-5.00 HEMOGLOBIN (BEAKER) (test reso=328) 10.7 GM/DL 12.0-15.0 HEMATOCRIT (BEAKER) (test tlar=672) 32.8 % 36.0-45.0 MEAN CORPUSCULAR VOLUME (BEAKER) (test ixtz=204) 84.0 fL 82.0-99.0 MEAN CORPUSCULAR HEMOGLOBIN (BEAKER) (test nxej=299) 27.5 pg 27.0-33.0 MEAN CORPUSCULAR HEMOGLOBIN CONC (BEAKER) (test gggk=099) 32.7 GM/DL 32.0- 36.0 RED CELL DISTRIBUTION WIDTH (BEAKER) (test baot=653) 14.0 % 10.3-14.2 PLATELET COUNT (BEAKER) (test kqxa=798) 209 K/CU MM 150-430 MEAN PLATELET VOLUME (BEAKER) (test irye=390) 9.1 fL 6.5-10.5 NUCLEATED RED BLOOD CELLS (BEAKER) (test nhec=292) 0 /100 WBC 0-0 NEUTROPHILS RELATIVE PERCENT (BEAKER) (test kzmq=949) 80 % LYMPHOCYTES RELATIVE PERCENT (BEAKER) (test aiom=901) 13 % MONOCYTES RELATIVE PERCENT (BEAKER) (test upkz=531) 5 % EOSINOPHILS RELATIVE PERCENT (BEAKER) (test zvjq=348) 1 % BASOPHILS RELATIVE PERCENT (BEAKER) (test seks=130) 0 % NEUTROPHILS ABSOLUTE COUNT (BEAKER) (test izml=081) 7.22 K/ L 1.80-8.00 LYMPHOCYTES ABSOLUTE COUNT (BEAKER) (test mwku=222) 1.20 K/ L 1.48-4.50 MONOCYTES ABSOLUTE COUNT (BEAKER) (test elpi=720) 0.48 K/ L 0.00-1.30 EOSINOPHILS ABSOLUTE COUNT (BEAKER) (test rbln=059) 0.06 K/ L 0.00-0.50 BASOPHILS ABSOLUTE COUNT (BEAKER) (test ozvl=493) 0.02 K/ L 0.00-0.20 0.00POCT-GLUCOSE [id number] 12:12:00* Test Item Value Reference Range Comments POC-GLUCOSE METER (BEAKER) (test dfdy=8819) 179 mg/dL 70-110 TESTED AT [address] [address] POCT-GLUCOSE [id number] 08:11:00* Test Item Value Reference Range Comments POC-GLUCOSE METER (BEAKER) (test qaoc=7389) 82 mg/dL 70-110 TESTED AT [address] [address] POCT-GLUCOSE [id number] 21:17:00* Test Item Value Reference Range Comments POC-GLUCOSE METER (BEAKER) (test sphj=0766) 188 mg/dL 70-110 TESTED AT [address] [address] POCT-GLUCOSE [id number] 17:15:00* Test Item Value Reference Range Comments POC-GLUCOSE METER (BEAKER) (test vhlp=2862) 136 mg/dL 70-110 TESTED AT [address] [address] POCT-GLUCOSE [id number] 08:44:00* Test Item Value Reference Range Comments POC-GLUCOSE METER (BEAKER) (test djss=0740) 99 mg/dL 70-110 TESTED AT [address] [address] POCT-GLUCOSE [id number] 21:27:00* Test Item Value Reference Range Comments POC-GLUCOSE METER (BEAKER) (test qnuq=6102) 126 mg/dL 70-110 TESTED AT [address] [address] POCT-GLUCOSE [id number] 16:23:00* Test Item Value Reference Range Comments POC-GLUCOSE METER (BEAKER) (test gwzt=4623) 144 mg/dL 70-110 TESTED AT [address] [address] POCT-GLUCOSE [id number] 12:03:00* Test Item Value Reference Range Comments POC-GLUCOSE METER (BEAKER) (test nkbg=7785) 151 mg/dL 70-110 TESTED AT [address] [address] CBC W/PLT COUNT & AUTO [id number] 08:02:00* Test Item Value Reference Range Comments WHITE BLOOD CELL COUNT (BEAKER) (test xfgx=180) 5.2 K/ L 4.0-10.0 RED BLOOD CELL COUNT (BEAKER) (test jdke=096) 4.04 M/ L 4.00-5.00 HEMOGLOBIN (BEAKER) (test lmxt=438) 11.1 GM/DL 12.0-15.0 HEMATOCRIT (BEAKER) (test awan=184) 33.2 % 36.0-45.0 MEAN CORPUSCULAR VOLUME (BEAKER) (test uktp=937) 82.1 fL 82.0-99.0 MEAN CORPUSCULAR HEMOGLOBIN (BEAKER) (test inwf=846) 27.5 pg 27.0-33.0 MEAN CORPUSCULAR HEMOGLOBIN CONC (BEAKER) (test dyai=277) 33.5 GM/DL 32.0- 36.0 RED CELL DISTRIBUTION WIDTH (BEAKER) (test ojfa=675) 12.8 % 10.3-14.2 PLATELET COUNT (BEAKER) (test vgrb=716) 247 K/CU MM 150-430 MEAN PLATELET VOLUME (BEAKER) (test ckvj=511) 9.5 fL 6.5-10.5 NUCLEATED RED BLOOD CELLS (BEAKER) (test snzx=700) 0 /100 WBC 0-0 NEUTROPHILS RELATIVE PERCENT (BEAKER) (test amcj=508) 64 % LYMPHOCYTES RELATIVE PERCENT (BEAKER) (test gyjn=004) 29 % MONOCYTES RELATIVE PERCENT (BEAKER) (test lqox=258) 4 % EOSINOPHILS RELATIVE PERCENT (BEAKER) (test lpvb=843) 1 % BASOPHILS RELATIVE PERCENT (BEAKER) (test vdex=360) 1 % NEUTROPHILS ABSOLUTE COUNT (BEAKER) (test rrlm=484) 3.32 K/ L 1.80-8.00 LYMPHOCYTES ABSOLUTE COUNT (BEAKER) (test loyz=407) 1.53 K/ L 1.48-4.50 MONOCYTES ABSOLUTE COUNT (BEAKER) (test tbwt=665) 0.23 K/ L 0.00-1.30 EOSINOPHILS ABSOLUTE COUNT (BEAKER) (test xbkl=608) 0.08 K/ L 0.00-0.50 BASOPHILS ABSOLUTE COUNT (BEAKER) (test gdnk=481) 0.07 K/ L 0.00-0.20 [id number] 08:00:00* Test Item Value Reference Range Comments PHOSPHORUS (BEAKER) (test xlwc=498) 2.4 mg/dL 2.3-4.7 [id number] 08:00:00* Test Item Value Reference Range Comments MAGNESIUM (BEAKER) (test txry=577) 1.8 mg/dL 1.6-2.6 BASIC METABOLIC [id number] 08:00:00* Test Item Value Reference Range Comments SODIUM (BEAKER) (test ucll=813) 141 meq/L 136-145 POTASSIUM (BEAKER) (test wdyl=335) 3.7 meq/L 3.5-5.1 CHLORIDE (BEAKER) (test qdyj=862) 115 meq/L 98-107 CO2 (BEAKER) (test uibm=770) 19 meq/L 22-29 BLOOD UREA NITROGEN (BEAKER) (test gpnc=771) 13 mg/dL 7-21 CREATININE (BEAKER) (test bdnm=255) 1.22 mg/dL 0.57-1.25 GLUCOSE RANDOM (BEAKER) (test xhos=084) 233 mg/dL 70-105 CALCIUM (BEAKER) (test ahvn=603) 8.1 mg/dL 8.4-10.2 EGFR (BEAKER) (test fcwb=3216) 54 mL/min/1.73 sq m ESTIMATED GFR IS NOT ACCURATE CREATININE CLEARANCE IN PREDICTING GLOMERULAR FILTRATION RATE. ESTIMATED GFR IS NOT APPLICABLE FOR DIALYSIS PATIENTS. HEPATIC FUNCTION [id number] 08:00:00* Test Item Value Reference Range Comments TOTAL PROTEIN (BEAKER) (test tujz=603) 5.9 gm/dL 6.0-8.3 ALBUMIN (BEAKER) (test zxep=7439) 2.8 g/dL 3.5-5.0 BILIRUBIN TOTAL (BEAKER) (test ugkj=861) 0.1 mg/dL 0.2-1.2 BILIRUBIN DIRECT (BEAKER) (test qxot=843) 0.1 mg/dL 0.1-0.5 ALKALINE PHOSPHATASE (BEAKER) (test uilx=584) 69 U/L 40-150 AST (SGOT) (BEAKER) (test sisu=589) 9 U/L 5-34 ALT (SGPT) (BEAKER) (test ksdo=415) 6 U/L 6-55 POCT-GLUCOSE [id number] 07:39:00* Test Item Value Reference Range Comments POC-GLUCOSE METER (BEAKER) (test lurt=7520) 232 mg/dL 70-110 TESTED AT [place] [id number] [facility] [address] POCT-GLUCOSE [id number] 21:29:00* Test Item Value Reference Range Comments POC-GLUCOSE METER (BEAKER) (test akvs=5475) 180 mg/dL 70-110 TESTED AT [address] [address] POCT-GLUCOSE [id number] 16:56:00* Test Item Value Reference Range Comments POC-GLUCOSE METER (BEAKER) (test rmzm=3403) 163 mg/dL 70-110 TESTED AT [address] [address] POCT-GLUCOSE [id number] 12:22:00* Test Item Value Reference Range Comments POC-GLUCOSE METER (BEAKER) (test gqvf=0499) 165 mg/dL 70-110 TESTED AT [address] [address] POCT-GLUCOSE [id number] 08:51:00* Test Item Value Reference Range Comments POC-GLUCOSE METER (BEAKER) (test fshp=9257) 147 mg/dL 70-110 TESTED AT [address] [address] CBC W/PLT COUNT & AUTO [id number] 05:52:00* Test Item Value Reference Range Comments WHITE BLOOD CELL COUNT (BEAKER) (test wflr=876) 5.9 K/ L 4.0-10.0 RED BLOOD CELL COUNT (BEAKER) (test stvo=822) 4.31 M/ L 4.00-5.00 HEMOGLOBIN (BEAKER) (test dhoj=441) 12.0 GM/DL 12.0-15.0 HEMATOCRIT (BEAKER) (test adnx=687) 35.1 % 36.0-45.0 MEAN CORPUSCULAR VOLUME (BEAKER) (test gtpm=430) 81.5 fL 82.0-99.0 MEAN CORPUSCULAR HEMOGLOBIN (BEAKER) (test vdxa=749) 27.8 pg 27.0-33.0 MEAN CORPUSCULAR HEMOGLOBIN CONC (BEAKER) (test llwv=696) 34.1 GM/DL 32.0- 36.0 RED CELL DISTRIBUTION WIDTH (BEAKER) (test oqth=003) 13.7 % 10.3-14.2 PLATELET COUNT (BEAKER) (test tptr=142) 239 K/CU MM 150-430 MEAN PLATELET VOLUME (BEAKER) (test xtqf=864) 9.4 fL 6.5-10.5 NUCLEATED RED BLOOD CELLS (BEAKER) (test gyuv=108) 0 /100 WBC 0-0 NEUTROPHILS RELATIVE PERCENT (BEAKER) (test gvyk=084) 56 % LYMPHOCYTES RELATIVE PERCENT (BEAKER) (test pghd=566) 34 % MONOCYTES RELATIVE PERCENT (BEAKER) (test yoxt=726) 6 % EOSINOPHILS RELATIVE PERCENT (BEAKER) (test dsen=299) 3 % BASOPHILS RELATIVE PERCENT (BEAKER) (test rlfq=909) 1 % NEUTROPHILS ABSOLUTE COUNT (BEAKER) (test qwzy=254) 3.28 K/ L 1.80-8.00 LYMPHOCYTES ABSOLUTE COUNT (BEAKER) (test tfut=012) 2.01 K/ L 1.48-4.50 MONOCYTES ABSOLUTE COUNT (BEAKER) (test uptp=055) 0.38 K/ L 0.00-1.30 EOSINOPHILS ABSOLUTE COUNT (BEAKER) (test lftl=780) 0.16 K/ L 0.00-0.50 BASOPHILS ABSOLUTE COUNT (BEAKER) (test zsqs=803) 0.07 K/ L 0.00-0.20 [id number] 05:50:00* Test Item Value Reference Range Comments PHOSPHORUS (BEAKER) (test ljqe=075) 3.4 mg/dL 2.3-4.7 [id number] 05:50:00* Test Item Value Reference Range Comments MAGNESIUM (BEAKER) (test zmyl=407) 1.7 mg/dL 1.6-2.6 BASIC METABOLIC [id number] 05:50:00* Test Item Value Reference Range Comments SODIUM (BEAKER) (test klcj=383) 142 meq/L 136-145 POTASSIUM (BEAKER) (test xahh=176) 3.9 meq/L 3.5-5.1 CHLORIDE (BEAKER) (test kfyk=884) 111 meq/L 98-107 CO2 (BEAKER) (test htpj=360) 23 meq/L 22-29 BLOOD UREA NITROGEN (BEAKER) (test igtd=907) 16 mg/dL 7-21 CREATININE (BEAKER) (test oygx=156) 1.36 mg/dL 0.57-1.25 GLUCOSE RANDOM (BEAKER) (test gojf=700) 151 mg/dL 70-105 CALCIUM (BEAKER) (test icfm=831) 8.7 mg/dL 8.4-10.2 EGFR (BEAKER) (test qbho=5554) 48 mL/min/1.73 sq m ESTIMATED GFR IS NOT ACCURATE CREATININE CLEARANCE IN PREDICTING GLOMERULAR FILTRATION RATE. ESTIMATED GFR IS NOT APPLICABLE FOR DIALYSIS PATIENTS. HEPATIC FUNCTION [id number] 05:50:00* Test Item Value Reference Range Comments TOTAL PROTEIN (BEAKER) (test qtxy=954) 6.3 gm/dL 6.0-8.3 ALBUMIN (BEAKER) (test rely=6086) 3.0 g/dL 3.5-5.0 BILIRUBIN TOTAL (BEAKER) (test hsbq=764) 0.2 mg/dL 0.2-1.2 BILIRUBIN DIRECT (BEAKER) (test fytn=210) 0.1 mg/dL 0.1-0.5 ALKALINE PHOSPHATASE (BEAKER) (test dfwh=171) 63 U/L 40-150 AST (SGOT) (BEAKER) (test tmmc=775) 9 U/L 5-34 ALT (SGPT) (BEAKER) (test mhkg=720) 7 U/L 6-55 POCT-GLUCOSE [id number] 22:29:00* Test Item Value Reference Range Comments POC-GLUCOSE METER (BEAKER) (test skee=2857) 154 mg/dL 70-110 TESTED AT [address] [address] POCT-GLUCOSE [id number] 18:40:00* Test Item Value Reference Range Comments POC-GLUCOSE METER (BEAKER) (test dikv=3576) 124 mg/dL 70-110 TESTED AT [place] [id number] [facility] [address] POCT-GLUCOSE [id number] 16:58:00* Test Item Value Reference Range Comments POC-GLUCOSE METER (BEAKER) (test qyft=2669) 184 mg/dL 70-110 TESTED AT [address] [address] POCT-GLUCOSE [id number] 11:42:00* Test Item Value Reference Range Comments POC-GLUCOSE METER (BEAKER) (test irdw=2880) 296 mg/dL 70-110 TESTED AT [facility] [address] [facility] [address] POCT-GLUCOSE [id number] 08:19:00* Test Item Value Reference Range Comments POC-GLUCOSE METER (JUAN MANUEL) (test sjdi=3374) 186 mg/dL 70-110 TESTED AT [facility] [address] [facility] [address] HEMOGLOBIN [id number] 08:13:00* Test Item Value Reference Range Comments HEMOGLOBIN A1C (JUAN MANUEL) (test hdrk=250) 12.7 % 4.3-6.1 POSSIBLE HEMOGLOBIN S VARIANT NOTED IN HEMOGLOBIN A1C CHROMATOGRAPH. SUGGEST HEMOGLOBIN ELECTROPHORESIS IF CLINICALLY INDICATED. TSH/FREE T4 IF [id number] 06:29:00* Test Item Value Reference Range Comments THYROID STIMULATING HORMONE (JUAN MANUEL) (test otrl=349) 1.88 uIU/mL 0.35-4.94 PROTHROMBIN [id number] 06:26:00* Test Item Value Reference Range Comments PROTIME (JUAN MANUEL) (test hzsp=182) 13.6 seconds 11.7-14.7 INR (BEAKER) (test kval=375) 1.1 <=5.9 RECOMMENDED COUMADIN/WARFARIN INR THERAPY RANGESSTANDARD DOSE: 2.0 - 3.0 Includes: PROPHYLAXIS for venous thrombosis, systemic embolization; TREATMENT for venous thrombosis and/or pulmonary embolus.HIGH RISK: Target INR is 2.5-3.5 for patients with mechanical heart valves.CREATINE KINASE (CK), TOTAL AND [id number] 06:19:00* Test Item Value Reference Range Comments CREATINE KINASE TOTAL (OBIEAKER) (test uocp=548) 56 U/L 29-200 CREATINE KINASE-MB (BEAKER) (test odmx=511) 0.8 ng/mL 0.0-6.6 CREATINE KINASE-MB INDEX (BEAKER) (test zvrl=777) 1.4 % Effective 10/01/2014: CK-MB Reference Range ChangeNew: 0.0-6.6 Previous: 0.0- 4.9CK-MB Reference Range:<6.7 Normal6.7-10.0 Borderline>10.0 AbnormalTROPONIN [id number] 06:19:00* Test Item Value Reference Range Comments TROPONIN I (BEAKER) (test tdyy=002) < ng/mL 0.00-0.03 Effective 10/01/2014: Reference Range ChangeNew: 0.00-0.03 Previous 0.00- 0.15Troponin I (TnI) levels must be interpreted in [...] failure, acidosis, acute neurological disease, and persistent tachyarrhythmia.CREATINE KINASE (CK) , TOTAL AND [id number] 06:18:00* Test Item Value Reference Range Comments CREATINE KINASE TOTAL (OBIEAKER) (test xdab=177) 60 U/L 29-200 CREATINE KINASE-MB (BEAKER) (test xgvd=741) 0.8 ng/mL 0.0-6.6 CREATINE KINASE-MB INDEX (BEAKER) (test nndr=247) 1.3 % Effective 10/01/2014: CK-MB Reference Range ChangeNew: 0.0-6.6 Previous: 0.0- 4.9CK-MB Reference Range:<6.7 Normal6.7-10.0 Borderline>10.0 AbnormalTROPONIN [id number] 06:18:00* Test Item Value Reference Range Comments TROPONIN I (BEAKER) (test iagx=575) < ng/mL 0.00-0.03 Effective 10/01/2014: Reference Range ChangeNew: 0.00-0.03 Previous 0.00- 0.15Troponin I (TnI) levels must be interpreted in [...] failure, acidosis, acute neurological disease, and persistent tachyarrhythmia.[id number] 06:12:00* Test Item Value Reference Range Comments PHOSPHORUS (BEAKER) (test lozq=307) 3.6 mg/dL 2.3-4.7 [id number] 06:12:00* Test Item Value Reference Range Comments MAGNESIUM (BEAKER) (test rjhv=347) 1.8 mg/dL 1.6-2.6 BASIC METABOLIC [id number] 06:12:00* Test Item Value Reference Range Comments SODIUM (BEAKER) (test ccjc=963) 143 meq/L 136-145 POTASSIUM (BEAKER) (test chcu=951) 3.9 meq/L 3.5-5.1 CHLORIDE (BEAKER) (test ivup=760) 111 meq/L 98-107 CO2 (BEAKER) (test pvaq=644) 23 meq/L 22-29 BLOOD UREA NITROGEN (BEAKER) (test ihqz=228) 13 mg/dL 7-21 CREATININE (BEAKER) (test nbgm=257) 1.40 mg/dL 0.57-1.25 GLUCOSE RANDOM (BEAKER) (test zpxz=594) 207 mg/dL 70-105 CALCIUM (BEAKER) (test febg=105) 9.2 mg/dL 8.4-10.2 EGFR (BEAKER) (test aypb=5494) 46 mL/min/1.73 sq m ESTIMATED GFR IS NOT ACCURATE CREATININE CLEARANCE IN PREDICTING GLOMERULAR FILTRATION RATE. ESTIMATED GFR IS NOT APPLICABLE FOR DIALYSIS PATIENTS. LIPID [id number] 06:12:00* Test Item Value Reference Range Comments TRIGLYCERIDES (BEAKER) (test pvzs=226) 202 mg/dL CHOLESTEROL (BEAKER) (test qnwz=105) 295 mg/dL HDL CHOLESTEROL (BEAKER) (test mrlt=463) 38 mg/dL LDL CHOLESTEROL CALCULATED (BEAKER) (test fmnp=148) 217 mg/dL Triglyceride Reference Range: Low Risk <150 Borderline 150-199 High Risk 200-499 Very High Risk >=500Cholesterol Reference Range: Low Risk <200 Borderline 200-239 High Risk >240HDL Cholesterol Reference Range: Low Risk >=60 High Risk <40LDL Cholesterol Reference Range: Optimal <100 Near Optimal 100-129 Borderline 130-159 High 160-189 Very High >=190 HEPATIC FUNCTION [id number] 06:12:00* Test Item Value Reference Range Comments TOTAL PROTEIN (BEAKER) (test eodj=654) 6.5 gm/dL 6.0-8.3 ALBUMIN (BEAKER) (test srnw=0323) 3.2 g/dL 3.5-5.0 BILIRUBIN TOTAL (BEAKER) (test mxoo=809) 0.2 mg/dL 0.2-1.2 BILIRUBIN DIRECT (BEAKER) (test xisa=964) 0.1 mg/dL 0.1-0.5 ALKALINE PHOSPHATASE (BEAKER) (test qjot=324) 69 U/L 40-150 AST (SGOT) (BEAKER) (test bzle=413) 8 U/L 5-34 ALT (SGPT) (BEAKER) (test glex=507) 9 U/L 6-55 CBC W/PLT COUNT & AUTO [id number] 05:53:00* Test Item Value Reference Range Comments WHITE BLOOD CELL COUNT (BEAKER) (test gvkv=812) 6.5 K/ L 4.0-10.0 RED BLOOD CELL COUNT (BEAKER) (test yath=542) 4.41 M/ L 4.00-5.00 HEMOGLOBIN (BEAKER) (test oocc=364) 11.8 GM/DL 12.0-15.0 HEMATOCRIT (BEAKER) (test bamc=111) 36.6 % 36.0-45.0 MEAN CORPUSCULAR VOLUME (BEAKER) (test xavg=323) 82.9 fL 82.0-99.0 MEAN CORPUSCULAR HEMOGLOBIN (BEAKER) (test tgrp=752) 26.8 pg 27.0-33.0 MEAN CORPUSCULAR HEMOGLOBIN CONC (BEAKER) (test mhrf=048) 32.3 GM/DL 32.0- 36.0 RED CELL DISTRIBUTION WIDTH (BEAKER) (test xcyq=959) 12.8 % 10.3-14.2 PLATELET COUNT (BEAKER) (test dcgw=320) 239 K/CU MM 150-430 MEAN PLATELET VOLUME (BEAKER) (test sbfi=144) 9.1 fL 6.5-10.5 NUCLEATED RED BLOOD CELLS (BEAKER) (test yebq=783) 0 /100 WBC 0-0 NEUTROPHILS RELATIVE PERCENT (BEAKER) (test rofz=474) 53 % LYMPHOCYTES RELATIVE PERCENT (BEAKER) (test jnqj=344) 39 % MONOCYTES RELATIVE PERCENT (BEAKER) (test odiq=082) 5 % EOSINOPHILS RELATIVE PERCENT (BEAKER) (test vszh=462) 2 % BASOPHILS RELATIVE PERCENT (BEAKER) (test gqfp=007) 2 % NEUTROPHILS ABSOLUTE COUNT (BEAKER) (test xmwg=457) 3.43 K/ L 1.80-8.00 LYMPHOCYTES ABSOLUTE COUNT (BEAKER) (test ukvk=032) 2.49 K/ L 1.48-4.50 MONOCYTES ABSOLUTE COUNT (BEAKER) (test htcs=441) 0.31 K/ L 0.00-1.30 EOSINOPHILS ABSOLUTE COUNT (BEAKER) (test bbfj=792) 0.12 K/ L 0.00-0.50 BASOPHILS ABSOLUTE COUNT (BEAKER) (test vftt=484) 0.12 K/ L 0.00-0.20 0.00CREATINE KINASE (CK), TOTAL AND [id number] 15:58:00* Test Item Value Reference Range Comments CREATINE KINASE TOTAL (BEAKER) (test cbpg=708) 76 U/L 29-200 CREATINE KINASE-MB (BEAKER) (test tgxl=357) 0.8 ng/mL 0.0-6.6 CREATINE KINASE-MB INDEX (BEAKER) (test thtc=893) 1.1 % Effective 10/01/2014: CK-MB Reference Range ChangeNew: 0.0-6.6 Previous: 0.0- 4.9CK-MB Reference Range:<6.7 Normal6.7-10.0 Borderline>10.0 AbnormalTROPONIN [id number] 15:58:00* Test Item Value Reference Range Comments TROPONIN I (BEAKER) (test hkdh=997) < ng/mL 0.00-0.03 Effective 10/01/2014: Reference Range ChangeNew: 0.00-0.03 Previous 0.00- 0.15Troponin I (TnI) levels must be interpreted in [...] failure, acidosis, acute neurological disease, and persistent tachyarrhythmia.BASIC METABOLIC [id number] 15:50:00* Test Item Value Reference Range Comments SODIUM (BEAKER) (test gjkl=782) 141 meq/L 136-145 POTASSIUM (BEAKER) (test ajer=511) 3.8 meq/L 3.5-5.1 CHLORIDE (BEAKER) (test xikq=007) 109 meq/L 98-107 CO2 (BEAKER) (test pezu=033) 21 meq/L 22-29 BLOOD UREA NITROGEN (BEAKER) (test xnik=591) 14 mg/dL 7-21 CREATININE (BEAKER) (test prdf=294) 1.60 mg/dL 0.57-1.25 GLUCOSE RANDOM (BEAKER) (test hzwj=134) 271 mg/dL 70-105 CALCIUM (BEAKER) (test znvj=993) 9.5 mg/dL 8.4-10.2 EGFR (BEAKER) (test rrtq=8750) 40 mL/min/1.73 sq m ESTIMATED GFR IS NOT ACCURATE CREATININE CLEARANCE IN PREDICTING GLOMERULAR FILTRATION RATE. ESTIMATED GFR IS NOT APPLICABLE FOR DIALYSIS PATIENTS. CBC W/PLT COUNT & AUTO [id number] 15:22:00* Test Item Value Reference Range Comments WHITE BLOOD CELL COUNT (BEAKER) (test ihgr=479) 7.8 K/ L 4.0-10.0 RED BLOOD CELL COUNT (BEAKER) (test cfks=544) 4.63 M/ L 4.00-5.00 HEMOGLOBIN (BEAKER) (test kkhv=719) 12.6 GM/DL 12.0-15.0 HEMATOCRIT (BEAKER) (test uilg=346) 38.2 % 36.0-45.0 MEAN CORPUSCULAR VOLUME (BEAKER) (test ntyx=183) 82.5 fL 82.0-99.0 MEAN CORPUSCULAR HEMOGLOBIN (BEAKER) (test whci=379) 27.2 pg 27.0-33.0 MEAN CORPUSCULAR HEMOGLOBIN CONC (BEAKER) (test znho=276) 33.0 GM/DL 32.0- 36.0 RED CELL DISTRIBUTION WIDTH (BEAKER) (test xzfe=816) 12.8 % 10.3-14.2 PLATELET COUNT (BEAKER) (test pldy=824) 276 K/CU MM 150-430 MEAN PLATELET VOLUME (BEAKER) (test yocc=851) 9.1 fL 6.5-10.5 NUCLEATED RED BLOOD CELLS (BEAKER) (test xdme=151) 0 /100 WBC 0-0 NEUTROPHILS RELATIVE PERCENT (BEAKER) (test mtsq=341) 65 % LYMPHOCYTES RELATIVE PERCENT (BEAKER) (test qgqz=163) 29 % MONOCYTES RELATIVE PERCENT (BEAKER) (test xmui=481) 5 % EOSINOPHILS RELATIVE PERCENT (BEAKER) (test tdft=463) 1 % BASOPHILS RELATIVE PERCENT (BEAKER) (test nwzm=907) 1 % NEUTROPHILS ABSOLUTE COUNT (BEAKER) (test xqou=064) 5.04 K/ L 1.80-8.00 LYMPHOCYTES ABSOLUTE COUNT (BEAKER) (test sivj=981) 2.24 K/ L 1.48-4.50 MONOCYTES ABSOLUTE COUNT (BEAKER) (test jrxg=068) 0.38 K/ L 0.00-1.30 EOSINOPHILS ABSOLUTE COUNT (BEAKER) (test wzbz=257) 0.06 K/ L 0.00-0.50 BASOPHILS ABSOLUTE COUNT (BEAKER) (test vbkb=093) 0.04 K/ L 0.00-0.20 0.00
[2018-03-08] MEDS ORDERED: DEXTROSE 50% SYRINGE 50 ML IV PRN ×2 (15:15)
[2018-03-08] MEDS ORDERED: DEXTROSE 5%/0.9% SOD CHL 1,000 ML IV SCH (15:15)
[2018-03-08 15:30] VITALS: BP 159/74
[2018-03-08 15:55] VITALS: BP 159/74
[2018-03-08 16:00] VITALS: BP 159/74
[2018-03-08 16:23] LABS: BASOPHILS % 0.5 % (0.0-1.0); EOSINOPHILS # (AUTO) 0.1 (0.0-0.4); EOSINOPHILS % 1.2 % (0.0-6.0); HEMATOCRIT 29.6 % (34.2-44.1); HEMOGLOBIN 9.7 g/dL (12.0-16.0); LYMPHOCYTES # (AUTO) 1.6 (1.0-3.2); LYMPHOCYTES % 24.7 % (18.0-39.1); MEAN CORPUSCULAR HEMOGLOBIN 26.6 pg (28-32); MEAN CORPUSCULAR HGB CONC 32.8 g/dL (31-35); MEAN CORPUSCULAR VOLUME 81.3 fL (81-99); MONOCYTES # (AUTO) 0.3 (0.2-0.8); MONOCYTES % 4.9 % (4.4-11.3); NEUTROPHILS # (AUTO) 4.4 (2.1-6.9); NEUTROPHILS % 68.1 % (38.7-80.0); PLATELET COUNT 223 x10e3/uL (140-360); RED BLOOD COUNT 3.64 x10e6/uL (3.6-5.1)
[2018-03-08] MEDS: INSULIN REGULAR, HUMAN 100 UNIT/1 ML 3ML VIAL SQ SCH ×2 (16:30→23:55)
[2018-03-08 16:41] LABS: ANION GAP 12.7 mmol/L (8-16); CALCIUM 9.4 mg/dL (8.4-10.2); CREATININE, SERUM 1.52 mg/dL (0.57-1.11); POTASSIUM 3.7 mmol/L (3.5-5.1)
[2018-03-08] MEDS ORDERED: AMLODIPINE BESY10 MG PO (17:01)
[2018-03-08] MEDS ORDERED: ACIDOPHILUS1 EAC1 PO (17:01)
[2018-03-08] MEDS ORDERED: ASPIR 8181 MG (17:01)
[2018-03-08] MEDS ORDERED: LISINOPRIL10 MG PO (17:01)
[2018-03-08] MEDS ORDERED: CARVEDILOL12.5 MG PO (17:01)
[2018-03-08] MEDS ORDERED: VITAMIN D1000 UNI1 PO (17:01)
[2018-03-08] MEDS ORDERED: BACLOFEN10 MG PO (17:01)
[2018-03-08] MEDS ORDERED: ATORVASTATIN CA20 MG PO (17:01)
[2018-03-08] MEDS ORDERED: CLOPIDOGREL75 MG PO (17:01)
[2018-03-08] MEDS ORDERED: LEVEMIR100 UNIT/1 SC (17:01)
[2018-03-08] MEDS ORDERED: PROZAC20 MG PO (17:01)
[2018-03-08] MEDS ORDERED: HYDRALAZINE HCL10 MG PO (17:01)
[2018-03-08] MEDS ORDERED: MULTI-VITAMIN1 EACH PO (17:01)
[2018-03-08] MEDS ORDERED: DOCUSATE SODIU100 MG PO (17:01)
[2018-03-08] MEDS: DEXTROSE 5% 1,000 ML IV SCH (17:45)
[2018-03-08] MEDS: CLONIDINE HCL 0.3MG/24 HR PATCH TOP SCH (18:11)
[2018-03-08] MEDS ORDERED: ACETAMINOPHEN 325 MG TAB PO PRN (18:30)
--- NOTE | 2018-03-08 18:37 | History and Physical ---
HISTORY OF PRESENT ILLNESS: A 62-year-old female with past medical history positive for right CVA with right hemiplegia, hypertension, chronic renal insufficiency, diabetes with diabetic nephropathy who came here from the group home because she was not eating or drinking. Her sodium was extremely high. So she was seen here for dehydration and for PEG tube placement, which the family agreed, according to , nurse practitioner at group home. REVIEW OF SYSTEMS: The patient is unable to communicate. ALLERGIES: LISTED IN THE CHART. SOCIAL HISTORY: We do not know if she smokes or drinks. PAST MEDICAL HISTORY: Positive for right CVA with left hemiplegia, hypertension and diabetes mellitus type 2 with diabetic nephropathy. Chronic renal insufficiency stage 4. Hypertensive nephropathy. PHYSICAL EXAMINATION: VITAL SIGNS: Blood pressure 159/74, temperature 100.4, heart rate 84 per minute, respiratory rate 18 per minute, oxygen saturation 96%. HEART: Regular rhythm. No murmur. No extra sounds. LUNGS: Clear bilaterally. ABDOMEN: Soft. EXTREMITIES: Show no evidence of cyanosis, edema or trauma. NEUROLOGIC: She is alert. She has left hemiplegia. LABORATORY DATA: So scar on the BMP, sodium 150, potassium 3.7, chloride 121. CO2 20. BUN 17. Creatinine 1.52. Glucose 148. On the CBC white blood count 6.48, hemoglobin 9.7, hematocrit 29.6, platelet count 223,000. FINAL IMPRESSION: 1. Anorexia. 2. Right cerebrovascular accident with left hemiplegia. 3. Hypernatremia. 4. Hypertensive nephropathy. 5. Diabetes mellitus type 2 with diabetic nephropathy. 6. Chronic renal failure stage 4. PLAN OF TREATMENT: Continue D5W at 75 mL an hour. Monitor blood sugar a.c. and nightly. Hydralazine 25 mg IV q.6 h. as needed for hypertension. Blood culture times 2. Urine culture has been ordered. BMP tomorrow. We are going to place all the other medications on hold because the patient is unable to eat by mouth. Since the patient has been on Plavix and aspirin, gastroenterology recommended to hold off on the PEG tube for 5 days because of the above changes. Job#: [id number]
[2018-03-08 18:55] LABS: CLARITY,URINE TURBID (CLEAR); COLOR,URINE BROWN (YELLOW); LEUKOCYTE ESTERASE ,URINE 1+ (NEGATIVE); NITRITE,URINE POSITIVE (NEGATIVE); PROTEIN,URINE DIPSTICK 2+ (NEGATIVE)
[2018-03-08 18:56] LABS: BILIRUBIN,URINE NEGATIVE (NEGATIVE); KETONES,URINE NEGATIVE (NEGATIVE); URINE UROBILINOGEN 0.2 mg/dL (0.2 - 1)
--- NOTE | 2018-03-08 19:13 | Consultation ---
DATE OF CONSULTATION: March 08, 2018 REASON FOR CONSULT: Evaluation for PEG placement. HISTORY OF PRESENT ILLNESS: A 62-year-old female with a history of stroke, protein calorie malnutrition due to poor p.o. intake. It is not clear if the patient also has oropharyngeal dysphagia. She is on aspirin and Plavix for stroke prophylaxis, as well as for coronary artery disease. She got admitted with failure to thrive kind of situation. Blood work revealed hypernatremia with sodium of 150. GI has been consulted for evaluation of PEG placement. REVIEW OF SYSTEMS: Unobtainable. PAST MEDICAL HISTORY: Hypertension, CVA, vitamin D deficiency, depression, oropharyngeal dysphagia, cognitive impairment, left hemiparesis, diabetes, and hyperlipidemia. PAST SURGICAL HISTORY: Cataract surgery, some kind of oral surgery as well. FAMILY HISTORY: Diabetes and hypertension runs in the family. SOCIAL HISTORY: [facility] resident. No smoking, alcohol or any illicit drug use. ALLERGIES: NO KNOWN DRUG ALLERGIES. HOME MEDICATIONS: Amlodipine, aspirin, atorvastatin, Baclofen, carvedilol, vitamin D3, clopidogrel, docusate sodium, fluoxetine, hydralazine, insulin Detemir, lactobacillus, lisinopril, multivitamins. PHYSICAL EXAMINATION VITAL SIGNS: Temperature 99.4 to 100.4, pulse 84, respirations 16-18, blood pressure 159/74, oxygen saturation 96% on room air. GENERAL: Not in any acute distress. Oral mucosa is moist. Anicteric sclerae. NECK: Supple. CV: S1 and S2 regular. LUNGS: Bilaterally grossly clear. ABDOMEN: Obese, soft, nondistended, and nontender. No mass or hernia. Positive bowel sounds. EXTREMITIES: Warm. No leg edema. Decreased strength in the left upper and left lower extremities. LABS: WBC 6.48, hemoglobin 9.7, hematocrit 29.6, MCV 81.3, and platelet count 223,000. Sodium 150, potassium 3.5, chloride 121, bicarb 20, BUN 17, creatinine 1.52, glucose 148. IMPRESSION: 1. Probable Oropharyngeal dysphagia likely secondary to previous cerebrovascular accident. Need sppech/swallow evaluation. 2. Poor PO intake, Anorexia PLAN: No contraindication for EGD and PEG. However, aspirin and Plavix needs to be stopped at least 3-4 days prior to PEG placement. We will confirm from the skilled nursing when she received the last dose. Based upon that, we will decide the date of EGD and PEG. In the interim, if enteral nutrition is required, then consider NG feeding. Discussed with Dr. Mariano. Job#: [id number] RI MTDD
[2018-03-08 19:20] LABS: AMORPHOUS SEDIMENT,URINE FEW (FEW); BACTERIA,URINE MANY /HPF; WBC,URINE (MAN) 0-5 /HPF (0-5)
[2018-03-08 20:00] VITALS: BP 171/87
[2018-03-09] VITALS (7 sets, daily range): BP systolic 149–179; BP diastolic 67–91
[2018-03-09] MEDS: DEXTROSE 5%/0.9% SOD CHL 1,000 ML IV SCH (00:30)
[2018-03-09] MEDS: HYDRALAZINE HCL 20 MG/ML VIAL IV PRN (00:36)
[2018-03-09 06:27] LABS: ANION GAP 11.3 mmol/L (8-16); CALCIUM 9.3 mg/dL (8.4-10.2); CREATININE, SERUM 1.27 mg/dL (0.57-1.11); POTASSIUM 3.3 mmol/L (3.5-5.1)
[2018-03-09] MEDS: DEXTROSE 5% 1,000 ML IV SCH (07:05)
[2018-03-09] MEDS: INSULIN REGULAR, HUMAN 100 UNIT/1 ML 3ML VIAL SQ SCH ×4 (07:30→20:38)
[2018-03-09] MEDS ORDERED: POTASSIUM CHLORIDE 20 MEQ TAB CR PO STA ×2 (11:22→11:34)
[2018-03-09] MEDS ORDERED: POTASSIUM CHLORIDE 20 MEQ TAB CR PO ONE (11:39)
[2018-03-09] MEDS ORDERED: POTASSIUM CHLORIDE 10MEQ/100ML 100 ML IV ONE (12:00)
[2018-03-09] MEDS ORDERED: POTASSIUM CHLORIDE 20MEQ/100ML 200 ML IV ONE (12:15)
--- NOTE | 2018-03-09 12:35 | Progress Note ---
DATE: March 09, 2018 INTERNAL MEDICINE PROGRESS NOTE SUBJECTIVE: The patient is talking today. She went to get a speech therapy evaluation to see if she can swallow. Potassium is low, we want to replace potassium by mouth. PEG tube will be placed on Tuesday because the patient . PHYSICAL EXAM VITAL SIGNS: Blood pressure 162/73, temperature 97.1, heart rate 75 per minute, respiratory rate 16 per minute. Oxygen saturation 98%. HEART: Regular rhythm. Normal S1, S2 sounds. LUNGS: Clear bilaterally. ABDOMEN: Soft. EXTREMITIES: Show no evidence of cyanosis or trauma. NEUROLOGIC: Left hemiplegia. On the BMP, sodium 135, potassium 3.3, chloride 117, CO2 20, BUN 15, creatinine 1.27, glucose 178. CBC white blood count 6.48, hemoglobin 9.7, hematocrit 29.6, platelet count 200,300. FINAL IMPRESSION 1. Anorexia. 2. Right cerebrovascular accident with left hemiplegia. 3. Hyponatremia. 4. Acute renal insufficiency. 5. Diabetes mellitus type 2 with diabetic nephropathy. 6. Diabetic nephropathy. 7. Hypertensive nephropathy. 8. Major depression. PLAN OF TREATMENT: We are going to change the IV fluids to D5 normal saline at 80 mL an hour. Continue monitoring blood sugar q.6 hours. Speech therapy evaluation. Hydralazine 25 mg IV q.6 hours as needed for hypertension. Clonidine patch 0.3 mg once a week. Tylenol 325 mg q.4 hours. We are going to resume the senior care medications and if speech therapy proves the patient to be eating, then we are going to start the diet again as long as she wants to eat. We are going to repeat a BMP tomorrow. Job#: [id number] TALYA
--- NOTE | 2018-03-09 22:35 | Progress Note ---
DATE: March 09, 2018 PROGRESS REPORT SUBJECTIVE: Patient follows verbal command, barely speaks. She cleared the speech and swallow evaluation. She has been recommended on modified diet. However, she is refusing to eat. She does not feel hungry. REVIEW OF SYSTEMS GENERAL: No fever or chills. RESPIRATORY: No cough or expectoration. CVS: No chest pain, palpitation. MEDICATION: Reviewed as per JAN. Aspirin and Plavix is on hold. PHYSICAL EXAMINATION VITAL SIGNS: Temperature 98.7, pulse 83, respirations 18, blood pressure 158/74-173/79, oxygen saturation 98% on room air. GENERAL: Not in any acute distress. HEENT: Oral mucosa is moist. Anicteric sclerae. LYMPHS: No neck or axillary adenopathy. CV: S1, S2 regular. LUNGS: Bilaterally grossly clear. ABDOMEN: Obese, soft, nondistended, nontender. No palpable mass or hernia. Positive bowel sounds. EXTREMITIES: Warm. No leg edema. LAB: None done today. IMPRESSIONS 1. Status post cerebrovascular accident, she passed the speech and swallow evaluation. 2. Anorexia. PLAN: Try to feed her with assistance. Continue to hold aspirin and Plavix. Change IV fluid from D5 to D5 NS around 75 mL an hour. Monitor her clinically. If patient's oral intake remains compromised, then, in that situation, will attempt EGD and PEG on Tuesday to ensure delivery of water medication to maintain hydration, as well as nutrition. Job#: [id number]
[2018-03-10] VITALS: BP 162/75
[2018-03-10 04:00] VITALS: BP 153/86
[2018-03-10 07:29] LABS: ANION GAP 10.5 mmol/L (8-16); BLOOD UREA NITROGEN 9 mg/dL (7-26); BUN/CREATININE RATIO 9 (6-25); CALCIUM 8.9 mg/dL (8.4-10.2); CARBON DIOXIDE 19 mmol/L (22-29); CHLORIDE 115 mmol/L (98-107); CREATININE, SERUM 1.02 mg/dL (0.57-1.11); EST GLOMERULAR FILTRATION RATE > 60 ML/MIN (60-); GLUCOSE 125 mg/dL (74-118); POTASSIUM 3.5 mmol/L (3.5-5.1); SODIUM 141 mmol/L (136-145)
[2018-03-10 08:00] VITALS: BP 145/71
[2018-03-10] MEDS: INSULIN REGULAR, HUMAN 100 UNIT/1 ML 3ML VIAL SQ SCH ×4 (10:16→21:00)
[2018-03-10 12:00] VITALS: BP 153/82
[2018-03-10] MEDS: DEXTROSE 5%/0.9% SOD CHL 1,000 ML IV SCH (13:27)
[2018-03-10] MEDS ORDERED: POTASSIUM CHLORIDE 20MEQ/100ML 200 ML IV ONE (15:30)
--- NOTE | 2018-03-10 15:43 | Progress Note ---
DATE: March 10, 2018 INTERNAL MEDICINE PROGRESS NOTE SUBJECTIVE: Patient is with no complaint, no distress today. Refusing to eat. She is going to have PEG tube placed on Tuesday since she has to be off the aspirin and the Plavix for at least 5 days. Patient is getting IV fluids. Sodium is back to normal. Potassium is a little bit low at 3.5. We are going to replace the potassium. PHYSICAL EXAM: VITAL SIGNS: Blood pressure 145/71. Temperature 96.9. Heart rate 82 per minute. Respiratory rate is 19 per minute. Oxygen saturation 97%. HEART: Shows regular rhythm. Normal S1 and S2 sounds. LUNGS: Clear bilaterally. ABDOMEN: Soft. EXTREMITIES: Show no evidence of cyanosis, edema or trauma. NEUROLOGIC: She has got left hemiplegia. On the BMP: Sodium 141, potassium 3.5, chloride 115, CO2 19, BUN 9, creatinine 1.02, glucose 125. On the CBC: White blood count 6.48, hemoglobin 9.7, hematocrit 29.6, platelet count 223,000. FINAL IMPRESSION: 1. Anorexia. 1. Major depression. 2. Right cerebrovascular accident with left hemiplegia. 3. Hyponatremia, which is resolving. 4. Acute renal insufficiency. 5. Diabetes mellitus type 2 with diabetic nephropathy. 6. Diabetic nephropathy. 7. Hypertensive nephropathy. PLAN OF TREATMENT: We are going to continue the IV fluids with D5 normal saline 75 mL an hour. Continue monitoring blood sugar a.c. and nightly. Continue hydralazine 25 mg IV q.6 h. as needed for hypertension. Continue Catapres patch 0.3 mg once a week. Tylenol 325 mg q.4 h. PEG tube on Tuesday. Job#: [id number] EV
[2018-03-10 16:00] VITALS: BP 179/95
[2018-03-10] MEDS ORDERED: VANCOMYCIN 750MG/NS 150ML IVPB 150 ML IV SCH (18:00)
[2018-03-10] MEDS ORDERED: LEVOFLOXACIN 500MG/D5W 100ML 100 ML IV SCH (18:00)
[2018-03-10 18:20] LABS: ANION GAP 12.7 mmol/L (8-16); BLOOD UREA NITROGEN 8 mg/dL (7-26); BUN/CREATININE RATIO 8 (6-25); CALCIUM 9.3 mg/dL (8.4-10.2); CARBON DIOXIDE 18 mmol/L (22-29); CHLORIDE 115 mmol/L (98-107); CREATININE, SERUM 1.06 mg/dL (0.57-1.11); EST GLOMERULAR FILTRATION RATE > 60 ML/MIN (60-); GLUCOSE 144 mg/dL (74-118); POTASSIUM 3.7 mmol/L (3.5-5.1); SODIUM 142 mmol/L (136-145)
--- NOTE | 2018-03-10 18:48 | Consultation ---
DATE OF CONSULTATION: March 10, 2018 PSYCHIATRIC CONSULTATION REASON FOR CONSULTATION: Evaluate the patient's mood and poor appetite. HISTORY OF PRESENT ILLNESS: The patient is a 62-year-old female admitted to the hospital for hyponatremia, protein calorie malnutrition. Psychiatric consultation is called to evaluate the patient's mood. As per medical record, the patient has a past history of right CVA with right hemiplegia, hypertension, chronic renal insufficiency, diabetes. Lives in [facility]. She is not eating or drinking. Sodium was elevated. She was taken to the hospital for dehydration and possible PEG placement. Upon evaluation today, the patient was found to be lying on the bed. She is alert, awake and oriented to situation. She is following commands. Speech is poor, but she is able to answer simple questions. She does not know where she is or the current year. She reports intermittent anxiety. Denies any depression. She admits to feeling hopeless and helpless. She does not think that life is worth living, but denies any suicidal ideation. She complained of poor sleep and poor appetite. She denies any hallucinations. She did not elicit paranoia or delusional thinking. She is calm. Does have some psychomotor retardation. The nursing staff does report that the patient is not eating. PEG tube will most likely be placed on Tuesday. PAST PSYCHIATRIC HISTORY: The patient denies any past psychiatric history. She denies any past suicide attempts. She denies alcohol or drug use. FAMILY HISTORY: The patient denies any family history of psychiatric illness. SOCIAL HISTORY: The patient states she lives with her daughter and son. MENTAL STATUS EXAMINATION GENERAL: The patient is an elderly female. She is alert, awake and oriented to situation, but poor speech. Mood is having some depression and some anxiety. She is having some passive wish, but denies any suicidal ideation. She denies any hallucinations. No delusions or paranoia elicited. No agitation. Insight and judgment are limited. CURRENT MEDICATIONS: Dextrose, sodium chloride, insulin, hydralazine, clonidine, potassium chloride, acetaminophen. CURRENT LABS: WBC is 6.48, RBC 3.64, hemoglobin 9.7, hematocrit 29.6, and platelets 223,000. Chemistry: Sodium 141, potassium 3.5, chloride 115, CO2 19, BUN 9, creatinine 1.02. ASSESSMENT: Major depressive disorder, single episode, moderate. PLAN: Add Remeron 7.5 mg p.o. at bedtime. Add Ativan 0.25 mg p.o. q.6 h. p.r.n. Discussed with nursing staff. Monitor for mood. Supportive therapy. Thank you for this consultation. DICTATED BY CALEB AGUDELO Job#: [id number] RI
[2018-03-10 20:00] VITALS: BP 182/91
--- NOTE | 2018-03-10 20:11 | Progress Note ---
DATE: March 10, 2018 SUBJECTIVE: The patient still continues to have poor p.o. intake. She has been seen by psychiatrist, Dr. Carvalho, today. It looks like the patient has depression. She is going to be started on Remeron. She is also getting antibiotic for UTI. REVIEW OF SYSTEMS: GENERAL: No fever or chills. CVS: No chest pain or palpitations. RESPIRATORY: No cough or expectoration. MEDICATIONS: Reviewed as per JAN. PHYSICAL EXAMINATION VITAL SIGNS: Temperature 98.5, pulse 83, respirations 20, blood pressure 179/95 to 153/82, oxygen saturation 96% on room air. GENERAL: Not in any acute distress. Obese body habitus. HEENT: Oral mucosa is moist. Anicteric sclerae. CVS: S1 and S2 regular. LUNGS: Bilaterally grossly clear. ABDOMEN: Soft, nondistended, nontender. No palpable mass or hernia. Positive bowel sounds. EXTREMITIES: Warm. Left hemiparesis. LABORATORY DATA: Blood culture no growth. Urine culture positive for E.coli, as well as Enterococcus faecalis. IMPRESSION: 1. Anorexia due to possibility of underlying depression, and the risk of dehydration. 2. Cerebrovascular accident with left hemiparesis. The patient cleared by speech and swallow evaluation. She can have a modified diet. 3. Urinary tract infection on antibiotic. PLAN: Since the patient comes from [facility], therefore, in order to ensure the delivery of medication and prevent dehydration, it is reasonable to put a PEG tube. This is reversible. PEG tube can always be pulled out once the patient's p.o. intake for nutrition as well as water is adequate. Will check PT and INR. Aspirin and Plavix are already on hold. Will put her on n.p.o. past midnight. EGD and PEG tube on Tuesday morning. Continue the rest of the management as per primary team. Job#: [id number] TILA
[2018-03-10] MEDS: HYDRALAZINE HCL 20 MG/ML VIAL IV PRN (21:45)
[2018-03-10] MEDS: MIRTAZAPINE 15 MG TAB PO SCH (22:05)
[2018-03-10] MEDS: HEPARIN SOD (PORCINE) 5,000 UNIT/ML VIAL SC SCH (22:05)
[2018-03-10] MEDS: LEVOFLOXACIN 500MG/D5W 100ML 100 ML IV SCH (22:05)
[2018-03-10] MEDS: VANCOMYCIN 750MG/NS 150ML IVPB 150 ML IV SCH (23:05)
[2018-03-11] MEDS: VANCOMYCIN 750MG/NS 150ML IVPB 150 ML IV SCH ×3 (00:17→21:42)
[2018-03-11] MEDS: DEXTROSE 5%/0.9% SOD CHL 1,000 ML IV SCH ×2 (00:55→17:10)
[2018-03-11 04:00] VITALS: BP 155/76
[2018-03-11 06:20] LABS: INR 1.49; PROTHROMBIN TIME 16.9 seconds (11.9-14.5)
[2018-03-11 06:29] LABS: ANION GAP 12.4 mmol/L (8-16); BLOOD UREA NITROGEN 6 mg/dL (7-26); BUN/CREATININE RATIO 6 (6-25); CALCIUM 9.3 mg/dL (8.4-10.2); CARBON DIOXIDE 18 mmol/L (22-29); CHLORIDE 117 mmol/L (98-107); CREATININE, SERUM 0.98 mg/dL (0.57-1.11); EST GLOMERULAR FILTRATION RATE > 60 ML/MIN (60-); GLUCOSE 120 mg/dL (74-118); POTASSIUM 3.4 mmol/L (3.5-5.1); SODIUM 144 mmol/L (136-145)
[2018-03-11] MEDS: INSULIN REGULAR, HUMAN 100 UNIT/1 ML 3ML VIAL SQ SCH ×4 (07:30→21:00)
[2018-03-11 08:00] VITALS: BP 141/69
[2018-03-11] MEDS: HEPARIN SOD (PORCINE) 5,000 UNIT/ML VIAL SC SCH ×2 (09:28→20:45)
[2018-03-11 12:00] VITALS: BP 174/76
[2018-03-11 16:00] VITALS: BP 173/76
[2018-03-11 20:00] VITALS: BP 147/74
[2018-03-11] MEDS: LEVOFLOXACIN 500MG/D5W 100ML 100 ML IV SCH (20:45)
[2018-03-11] MEDS: MIRTAZAPINE 15 MG TAB PO SCH (20:45)
[2018-03-12] VITALS (7 sets, daily range): BP systolic 155–176; BP diastolic 70–92
[2018-03-12] MEDS: DEXTROSE 5%/0.9% SOD CHL 1,000 ML IV SCH ×2 (03:35→17:27)
[2018-03-12] MEDS: HYDRALAZINE HCL 20 MG/ML VIAL IV PRN (06:52)
[2018-03-12] MEDS: INSULIN REGULAR, HUMAN 100 UNIT/1 ML 3ML VIAL SQ SCH ×4 (07:30→20:08)
[2018-03-12] MEDS: HEPARIN SOD (PORCINE) 5,000 UNIT/ML VIAL SC SCH ×3 (09:12→21:11)
[2018-03-12] MEDS: VANCOMYCIN 750MG/NS 150ML IVPB 150 ML IV SCH (10:00)
[2018-03-12] MEDS: MIRTAZAPINE 15 MG TAB PO SCH ×2 (21:00→21:05)
[2018-03-12] MEDS: LEVOFLOXACIN 500MG/D5W 100ML 100 ML IV SCH (21:05)
[2018-03-13] VITALS (9 sets, daily range): BP systolic 126–187; BP diastolic 60–92
[2018-03-13] MEDS: HYDRALAZINE HCL 20 MG/ML VIAL IV PRN ×3 (00:13→16:10)
[2018-03-13] MEDS: VANCOMYCIN 750MG/NS 150ML IVPB 150 ML IV SCH ×2 (00:13→10:07)
[2018-03-13] MEDS: DEXTROSE 5%/0.9% SOD CHL 1,000 ML IV SCH ×2 (06:15→16:10)
[2018-03-13] MEDS ORDERED: SIMETHICONE 40 MG/0.6 ML BTL ONE (07:04)
[2018-03-13] MEDS: INSULIN REGULAR, HUMAN 100 UNIT/1 ML 3ML VIAL SQ SCH ×4 (07:30→22:30)
[2018-03-13] MEDS: HEPARIN SOD (PORCINE) 5,000 UNIT/ML VIAL SC SCH ×2 (07:58→21:00)
[2018-03-13] MEDS ORDERED: ACETAMINOPHEN 1000 MG/100 ML IV PRN (10:30)
[2018-03-13] MEDS ORDERED: POTASSIUM CHLORIDE 20MEQ/100ML 200 ML IV ONE (17:00)
[2018-03-13] MEDS ORDERED: PROPOFOL IV EMULSION 10 MG/ML 50 ML VIAL ONE (17:29)
[2018-03-13] MEDS: LINEZOLID 600 MG/D5W 300ML 300 ML IV SCH (17:35)
[2018-03-13] MEDS ORDERED: FENTANYL CITRATE/PF 100MCG/2 ML INJ ONE (17:45)
--- NOTE | 2018-03-13 17:48 | Progress Note ---
DATE: March 13, 2018 INTERNAL MEDICINE PROGRESS NOTE SUBJECTIVE: Patient is doing well. Status post PEG tube placement today. We are going to wait 24 hours before we start the PEG tube feedings as per Dr. Vides, the woven label designer's recommendations. PHYSICAL EXAMINATION: VITAL SIGNS: The blood pressure is 177/76, temperature 97.2, heart rate is 85 per minute, respiratory rate 18 per minute, oxygen saturation 97%. HEART: Shows regular rhythm. Normal S1 and S2 sounds. LUNGS: Clear bilaterally. ABDOMEN: Soft. She has a PEG tube in place. BLOOD WORK: We have a BMP: Sodium 144, potassium 3.4, chloride 117, CO2 18, BUN 6, creatinine 0.98, glucose 120. On the CBC: White blood count 6.48, hemoglobin 9.7, hematocrit 29.6, platelet count 293,000. PT 16.9, INR 1.49. FINAL IMPRESSION: 1. Urinary tract infection with enterococcus and Escherichia coli. 2. Anorexia. 3. Uncontrolled hypertension. 4. Hyponatremia. 5. Hypokalemia. 6. Right cerebrovascular accident with left hemiplegia. PLAN OF TREATMENT: Continue Zyvox 600 mg IV piggyback twice a day. Discontinue vancomycin. Continue Levaquin 500 mg IV piggyback daily. Continue IV fluids. Continue Tylenol 325 mg q.4 h. as needed. Continue monitoring blood sugar a.c. and nightly. Continue hydralazine 25 mg IV q.6 h. as needed for hypertension. Continue heparin 5000 units subcutaneously twice a day for DVT prophylaxis. Catapres patch 0.3 mg once a week. Tylenol 1000 mg q.6 h. as needed. Potassium 40 mEq IV one time. We are going to recheck BMP and magnesium level tomorrow. Tentative discharge for tomorrow. Job#: [id number] EV
[2018-03-13] MEDS ORDERED: CEFAZOLIN SOD 1 GM/NS 50ML 50 ML IV SCH (22:00)
[2018-03-13] MEDS: MIRTAZAPINE 15 MG TAB PO SCH (22:37)
[2018-03-13] MEDS: LEVOFLOXACIN 500MG/D5W 100ML 100 ML IV SCH (23:30)
[2018-03-14] VITALS (7 sets, daily range): BP systolic 159–184; BP diastolic 74–89
[2018-03-14] MEDS: HYDRALAZINE HCL 20 MG/ML VIAL IV PRN ×3 (01:21→20:08)
[2018-03-14] MEDS: LINEZOLID 600 MG/D5W 300ML 300 ML IV SCH ×2 (04:56→16:20)
[2018-03-14 06:45] LABS: ANION GAP 10.3 mmol/L (8-16); CALCIUM 8.7 mg/dL (8.4-10.2); CREATININE, SERUM 1.14 mg/dL (0.57-1.11); POTASSIUM 3.3 mmol/L (3.5-5.1)
[2018-03-14] MEDS: HEPARIN SOD (PORCINE) 5,000 UNIT/ML VIAL SC SCH ×2 (08:30→20:50)
[2018-03-14] MEDS: INSULIN REGULAR, HUMAN 100 UNIT/1 ML 3ML VIAL SQ SCH ×4 (08:30→21:00)
[2018-03-14] MEDS: DEXTROSE 5%/0.9% SOD CHL 1,000 ML IV SCH (08:55)
[2018-03-14] MEDS ORDERED: POTASSIUM CHLORIDE 20 MEQ TAB CR PO STA (12:01)
[2018-03-14] MEDS ORDERED: POTASSIUM CHLORIDE 20MEQ/15ML UDC NG ONE (12:15)
[2018-03-14] MEDS ORDERED: MAGNESIUM SULFATE 2GM/50ML 50 ML IV ONE (12:15)
[2018-03-14] MEDS ORDERED: ASPIRIN 81 MG CHEW TAB PO STA (16:05)
[2018-03-14] MEDS ORDERED: CLOPIDOGREL BISULFATE 75 MG TAB PO ONE (16:15)
--- NOTE | 2018-03-14 16:35 | Discharge Summary ---
HISTORY OF PRESENT ILLNESS/HOSPITAL COURSE: The patient is a 62-year-old female with past medical history positive for right CVA with late hemiplegia, history of hypertension. Patient came here because she was essentially refusing to eat. She was found to have hyponatremia, acute renal insufficiency, diabetic nephropathy, diabetic hypertensive nephropathy and also major depression. A PEG tube was in place. Patient was found to have UTI with a negative Enterococcal. She was started on Levaquin and Zyvox. Patient's blood pressure extremely high today in the 180s. We are going to start her on lisinopril 10 mg daily, Norvasc 5 mg daily and want her blood pressure come back to normal and the patient might be able to go [facility] the [facility]. Also her potassium was low at 3.3. We are going to replace the potassium with 40 mEq of potassium through the PEG tube. We are going to give magnesium sulfate 2 grams IV one time. The magnesium is in the low side of normal number. Once the potassium, magnesium and blood pressure is under reasonably normal number, the patient can go back to the penitentiary. PHYSICAL EXAM HEART: Showed regular rhythm. Normal S1, S2 sounds. LUNGS: Clear bilaterally. ABDOMEN: Soft. Got the PEG tube in place. EXTREMITIES: Show no evidence of cyanosis or trauma. VITAL SIGNS: Blood pressure 159/74, temperature 97.2, heart rate 75 per minute, respiratory rate 20 per minute. Oxygen saturation 98%. LABORATORY STUDIES: We have BMP with a sodium 143, potassium 3.3, chloride 118. CO2 18, BUN 5, creatinine 1.14, glucose 148. CBC white blood count 6.48, hemoglobin 9.7, hematocrit 29.6, platelet count 223,000. PT 16.9, INR 1.49. FINAL IMPRESSIONS 1. Anorexia status post PEG tube placement. 2. Uncontrolled hypertension with hypertensive nephropathy. 3. Urinary tract infection with enterococcus, gram-negative bacteria. 4. Diabetes mellitus type 2 with diabetic nephropathy. 5. Hypertension with hypertensive nephropathy. 6. Chronic renal insufficiency stage 2. 7. Anemia of chronic disease secondary to chronic renal insufficiency. 8. Hypokalemia. 9. Major depression. 10. Anorexia status post PEG tube placement. 11. Right cerebrovascular accident with left hemiplegia. 12. Hyponatremia which is resolved. PLAN OF TREATMENT: We are going to start her on lisinopril 10 mg daily, Norvasc 5 mg daily. Replete potassium, replete magnesium. Recheck potassium and magnesium level. Continue PEG tube feedings. We are going to discontinue IV fluids. Patient going to go back to penit[facility]iary as soon as we have blood pressure under control and potassium and magnesium back to normal. Also continue Levaquin 500 mg IV daily, Zyvox 300 mg IV twice a day due to urinary tract infection. The case has been discussed with the at the bedside. Time spent: Around 40 minutes. JAMISON OWENS MD Job#: [id number] DG
[2018-03-14] MEDS: LEVOFLOXACIN 500MG/D5W 100ML 100 ML IV SCH (20:54)
[2018-03-14] MEDS: MIRTAZAPINE 15 MG TAB PO SCH (20:54)
[2018-03-15 00:33] VITALS: BP 167/78
[2018-03-15] MEDS: LINEZOLID 600 MG/D5W 300ML 300 ML IV SCH ×2 (05:10→18:04)
[2018-03-15 05:56] VITALS: BP 169/81
[2018-03-15] MEDS: INSULIN REGULAR, HUMAN 100 UNIT/1 ML 3ML VIAL SQ SCH ×4 (07:30→21:00)
[2018-03-15 08:00] VITALS: BP 179/80
[2018-03-15] MEDS: POLYETHYLENE GLYCOL 3350 17 GM PACK PEG SCH (08:54)
[2018-03-15] MEDS: AMLODIPINE BESYLATE 5 MG TAB PO SCH (08:54)
[2018-03-15] MEDS: CLOPIDOGREL BISULFATE 75 MG TAB PO SCH (08:54)
[2018-03-15] MEDS: ASPIRIN 81 MG CHEW TAB PO SCH (08:54)
[2018-03-15] MEDS: HEPARIN SOD (PORCINE) 5,000 UNIT/ML VIAL SC SCH ×2 (08:55→21:00)
[2018-03-15 09:00] VITALS: BP 179/80
[2018-03-15] MEDS ORDERED: LISINOPRIL 10 MG TAB PO SCH (09:00)
[2018-03-15 12:00] VITALS: BP 175/82
[2018-03-15] MEDS ORDERED: POTASSIUM CHLORIDE 20 MEQ TAB CR PO NR (12:30)
--- NOTE | 2018-03-15 12:50 | Progress Note ---
DATE: March 15, 2018 INTERNAL MEDICINE PROGRESS NOTE SUBJECTIVE: Patient has no significant complaints today, a little bit sleepy. OBJECTIVE: VITAL SIGNS: On the blood pressure 169/81. Temperature 98 degrees. Heart rate 86 per minute. Respiratory rate is 21 per minute. Oxygen saturation 98%. HEART: Shows regular rhythm, normal S1 and S2 sounds. LUNGS: Clear bilaterally. ABDOMEN: Soft. She has a PEG tube in place. No distention, no visceromegaly. BLOOD WORK: We have a BMP with a sodium 143, potassium 3.3, chloride 118, CO2 18, BUN 5, creatinine 1.4, glucose 148. On the CBC: White blood count 6.48, hemoglobin 9.7, hematocrit 29.6, platelet count 223,000. PT 16.9, INR 1.49. FINAL IMPRESSION: 1. Anorexia, status post percutaneous endoscopic gastrotomy tube placement. 2. Hypokalemia. 3. Urinary tract infection. 4. Uncontrolled hypertension. 5. History of right cerebrovascular accident with left hemiplegia. PLAN OF TREATMENT: We are going to replace the potassium, recheck potassium and magnesium levels today. I increased the lisinopril to 20 mg daily due to the uncontrolled hypertension, and we are going to follow up closely. Continue Levaquin 500 mg IV once a day and Zyvox 600 mg IV twice a day for the UTI. Continue monitoring blood sugar a.c. and nightly. Remeron 7.5 mg at bedtime. Plavix 75 mg daily. Hydralazine 25 mg q.6 h. as needed IV. Heparin 5000 units subcutaneously twice a day for DVT prophylaxis. Continue with the PEG feedings as tolerated. Catapres patch 0.3 mg once a week. Amlodipine 5 mg daily. Tylenol 325 mg q.4 h. Aspirin 81 mg daily. Tentative discharge is for tomorrow once the potassium is back to normal and once the blood pressure is more stable. Job#: [id number] MARIBEL
--- NOTE | 2018-03-15 13:35 | Progress Note ---
DATE: March 14, 2018 GI PROGRESS NOTE SUBJECTIVE: Patient has had EGD, PEG placement yesterday. The feeding has not been started. Water flushes and medications are being delivered through the PEG. REVIEW OF SYSTEMS GENERAL: No fever or chills. CVS: No chest pain or palpitation. RESPIRATORY: No cough or expectoration. MEDICATIONS: Reviewed JAN. Aspirin and Plavix has not been started yet. PHYSICAL EXAMINATION VITAL SIGNS: Temperature 99.6, pulse 76, respirations 20, blood pressure 184/87, oxygen saturation 97% on room air. GENERAL: Not in any acute distress. Oral mucosa is moist. Anicteric sclerae. CVS: S1, S2 regular. LUNGS: Bilaterally grossly clear. ABDOMEN: Obese, soft, nondistended, nontender. PEG in place, external bumper 4 cm from the skin. Bright blood around the PEG site. No bleeding or any discharge. Bowel sounds hypoactive. EXTREMITIES: Warm. No leg edema. LABS: None today. IMPRESSIONS 1. Status percutaneous endoscopic gastrostomy tube for poor p.o. intake. 2. Cerebrovascular accident with left-sided residual weakness. 3. Constipation. PLAN: PEG can be used for feeding. Will add MiraLAX through the PEG daily to ensure 1 bowel movement. Aspirin and Plavix can be resumed now. Watch for PEG feeding tolerance. Check residuals. Call GI for any PEG malfunction. Job#: [id number] CQ TILA
[2018-03-15 14:48] LABS: ANION GAP 9.8 mmol/L (8-16); CALCIUM 9.4 mg/dL (8.4-10.2); CREATININE, SERUM 1.21 mg/dL (0.57-1.11); MAGNESIUM 1.3 MG/DL (1.3-2.1); POTASSIUM 3.8 mmol/L (3.5-5.1)
[2018-03-15 16:00] VITALS: BP 197/88
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
[2018-03-15] MEDS: HYDRALAZINE HCL 20 MG/ML VIAL IV PRN (17:13)
[2018-03-15] MEDS ORDERED: SODIUM CHLORIDE 0.9% 250ML 250 ML ONE (17:14)
--- NOTE | 2018-03-15 19:14 | Diagnostic Imaging Report ---
Exam: Head CT without contrast History: Altered mental status, hypernatremia. Comparison studies: None Technique: Axial images were obtained from the skull base to the vertex. Coronal and sagittal images reconstructed from the axial data. Intravenous contrast: None Findings: Scalp: No abnormalities. Bones: No fractures, blastic or lytic lesions. Brain sulci: Mildly prominent. Ventricles: Mild compensatory dilatation. No hydrocephalus. Extra-axial spaces: No masses, no fluid collection. Parenchyma: No acute hemorrhage or acute cortical vascular insults. There are chronic lacunar infarcts along the right anterolateral margin of the right putamen/subinsular region and at the junction of the posterior limb of the right internal capsule and right lentiform nucleus. A few hypodensities in the supratentorial white matter are nonspecific but most compatible with chronic small vessel ischemic changes. Sellar/suprasellar region: No abnormalities. Craniocervical junction: Patent foramen magnum. No Chiari one malformation. Incidental findings: Atherosclerotic calcifications in the carotid siphons. Chronic small depressed fracture or focal dehiscence in the left lamina papyracea. IMPRESSION: No acute intracranial abnormalities. Chronic findings: 1. Mild generalized volume loss. 2. Mild microvascular ischemic changes. 3. Chronic lacunar infarcts as described. Signed by: Dr. Julien Cage M.D. on 03/15/2018 7:09 PM
[2018-03-15] MEDS ORDERED: RISPERIDONE 0.5 MG TAB PO SCH (21:00)
[2018-03-15] MEDS ORDERED: MIRTAZAPINE 15 MG TAB PO SCH ×2 (21:00)
--- NOTE | 2018-03-15 21:24 | Progress Note ---
entered in error DATE: March 15, 2018 NO DICTATION. 10 seconds. Job#: [id number] GH MTDSalma
--- NOTE | 2018-03-15 21:47 | Progress Note ---
DATE: March 15, 2018 SUBJECTIVE: Patient is tolerating PEG feeding. She also has had 1 bowel movement today. REVIEW OF SYSTEMS: CVS: No chest pain or palpitation. GENERAL: No fever or chills. RESPIRATORY: No cough or expectoration. MEDICATIONS: Reviewed as per JAN. Patient has been started on aspirin and clopidogrel from yesterday. PHYSICAL EXAMINATION VITAL SIGNS: Temperature 96.2, pulse 81, respiration 18, blood pressure 197/88 to 175/82, oxygen saturation 98% on room air. GENERAL: Not in any acute distress. HEENT: Moist mucous membrane and anicteric sclerae. Calm. Oral mucosa is moist. CVS: S1 and S2 regular. LUNGS: Bilaterally grossly clear. ABDOMEN: Soft, nondistended and nontender. PEG site is clean. No discharge or any leak. External bumper 3.5 to 4 cm from the skin. Nontender abdomen. Bowel sounds present. EXTREMITIES: Warm. No leg edema. LABS: A urine culture is growing E. coli and Enterococcus faecalis. IMPRESSION: 1. Poor p.o. intake, therefore she has PEG tube to ensure nutrition and hydration. 2. Cerebrovascular accident with left-sided residual weakness. 3. Urinary tract infection. PLAN: Continue PEG feeding, daily MiraLAX to ensure one bowel movement daily. Continue antibiotic for UTI. Watch for PEG feeding tolerance. Check residual. Call GI for any PEG malfunction. Job#: [id number]
[2018-03-15] MEDS: LEVOFLOXACIN 500MG/D5W 100ML 100 ML IV SCH (22:00)
[2018-03-16] VITALS: BP 208/94
[2018-03-16 04:00] VITALS: BP 181/115
[2018-03-16] MEDS: LINEZOLID 600 MG/D5W 300ML 300 ML IV SCH ×2 (05:00→17:15)
[2018-03-16] MEDS: INSULIN REGULAR, HUMAN 100 UNIT/1 ML 3ML VIAL SQ SCH ×4 (07:30→22:06)
[2018-03-16] MEDS: CLONIDINE HCL 0.3MG/24 HR PATCH TOP SCH (07:44)
[2018-03-16 08:00] VITALS: BP 195/82
[2018-03-16] MEDS: CLOPIDOGREL BISULFATE 75 MG TAB PO SCH (09:57)
[2018-03-16] MEDS: AMLODIPINE BESYLATE 5 MG TAB PO SCH (09:57)
[2018-03-16] MEDS: POLYETHYLENE GLYCOL 3350 17 GM PACK PEG SCH (09:57)
[2018-03-16] MEDS: LISINOPRIL 20 MG TAB PO SCH (09:57)
[2018-03-16] MEDS: ASPIRIN 81 MG CHEW TAB PO SCH (09:57)
[2018-03-16] MEDS: HEPARIN SOD (PORCINE) 5,000 UNIT/ML VIAL SC SCH ×2 (09:59→22:06)
[2018-03-16] MEDS ORDERED: MAGNESIUM SULF 1GRAM/DEXTROSE 100 ML IV ONE (11:45)
[2018-03-16 12:00] VITALS: BP 161/77
--- NOTE | 2018-03-16 13:07 | Progress Note ---
DATE: March 16, 2018 INTERNAL MEDICINE PROGRESS NOTE SUBJECTIVE: Patient apparently has been refusing all her medications. She pulled out the IV line. She said that she wanted to , severely depressed. Patient's blood pressure is extremely high because, of course, she is refusing all her blood pressure medications. I already explained to the patient that she can have a stroke or a heart attack if she continues to refuse her blood pressure medications and the blood pressure continues to go higher and higher. OBJECTIVE VITAL SIGNS: The patient blood pressure is 195/82, temperature 98.5, heart rate 92 per minute, respiratory rate is 20 per minute, oxygen saturation 98%. HEART: Shows regular rhythm, normal S1 and S2 sounds. LUNGS: Clear bilaterally. ABDOMEN: Soft. EXTREMITIES: Show no evidence of cyanosis, edema or trauma. NEUROLOGIC: She is alert and oriented with a left hemiplegia on the motor examination. LAB STUDIES: On the blood work, we have a BMP with a sodium 139, potassium 3.8, chloride 112, CO2 21, BUN 5, creatinine 1.21, glucose 121. On the CBC: White blood count 6.48, hemoglobin 9.7, hematocrit 29.6, platelet count 223,000. PT 16.9. FINAL IMPRESSION 1. Hypertensive emergency with end-organ failure evidenced chronic renal insufficiency and a stroke. 2. Right cerebrovascular accident with left hemiplegia. 3. Urinary tract infection with enterococcus. 4. Hypertensive nephropathy. 5. Anemia of chronic disease secondary to chronic renal insufficiency. 6. Major depression. PLAN OF TREATMENT: Continue Levaquin 500 mg IV once a day, Zyvox 600 mg IV twice a day. Continue monitoring blood sugar a.c. and nightly. Continue with the heparin 5000 units subcutaneously twice a day for DVT prophylaxis. Continue PEG tube feedings, which she is tolerating pretty well. Continue hydralazine 25 mg IV q.6 h. as needed for hypertension as long as we can find an IV line and the patient allows us to place an IV line. Patient is being started on Norvasc 5 mg daily and lisinopril 20 mg daily, which she has been refusing. Continue clonidine patches 0.3 mg once a week. Continue aspirin 81 mg daily, Risperdal 0.25 mg at bedtime, Remeron 7.5 mg at bedtime, Plavix 75 mg daily and Tylenol 325 mg q.4 h. We have been trying to get the patient back to a [facility], but with this high blood pressure we are unable to do it. We are going to try to convince the patient to take her medication and even talk with the family, which is not here today, to see if they can cooperate to make sure the patient is taking her blood pressure medications before she goes back to the [facility]. We are unable to send her back with this very high blood pressure. Dr. Carvalho, psychiatrist, is on the case because of the major depression and the refusal of the patient to take medications. Apparently she has got major depression also. We are going to start her on Zoloft also 50 mg daily for depression and go from there. Job#: [id number] EV
[2018-03-16 16:00] VITALS: BP 161/75
--- NOTE | 2018-03-16 17:07 | Progress Note ---
DATE: March 16, 2018 PSYCHIATRIC PROGRESS NOTE SUBJECTIVE: Patient evaluated and events noted. INTERVAL HISTORY: Upon evaluation today, patient is found to be lying on her bed. She is alert, awake, oriented to situation. She appears to be irritable and refused to answer most of the questions during this assessment. She states that she does not want to talk because she is sleeping. Patient denies feeling depressed. She appears suspicious and paranoid and refused to answer other questions. No major side effects are noted. As per the nursing staff, patient has been suspicious, confused and somewhat depressed at times, but she has been taking her medications. ASSESSMENT: Major depressive disorder, recurrent, mild to moderate/unspecified psychosis. PLAN 1. Increase Remeron to 30 mg p.o. nightly. 1. Increase Risperdal to 0.5 mg p.o. nightly. 2. Monitor for mood and psychosis. Job#: [id number] EV
[2018-03-16 20:00] VITALS: BP 167/76
[2018-03-16] MEDS ORDERED: RISPERIDONE 0.5 MG TAB PO SCH (21:00)
[2018-03-16] MEDS ORDERED: MIRTAZAPINE 15 MG TAB PO SCH (21:00)
[2018-03-17] VITALS: BP 168/81
[2018-03-17 04:00] VITALS: BP 186/86
[2018-03-17] MEDS: LINEZOLID 600 MG/D5W 300ML 300 ML IV SCH (05:30)
[2018-03-17] MEDS: HYDRALAZINE HCL 20 MG/ML VIAL IV PRN (05:37)
[2018-03-17 08:00] VITALS: BP 132/66
[2018-03-17 08:42] VITALS: BP 132/66
[2018-03-17] MEDS: INSULIN REGULAR, HUMAN 100 UNIT/1 ML 3ML VIAL SQ SCH ×2 (08:42→12:27)
[2018-03-17] MEDS: LISINOPRIL 20 MG TAB PO SCH (08:42)
[2018-03-17] MEDS: HEPARIN SOD (PORCINE) 5,000 UNIT/ML VIAL SC SCH (08:42)
[2018-03-17] MEDS: AMLODIPINE BESYLATE 5 MG TAB PO SCH (08:42)
[2018-03-17] MEDS: CLOPIDOGREL BISULFATE 75 MG TAB PO SCH (08:42)
[2018-03-17] MEDS: POLYETHYLENE GLYCOL 3350 17 GM PACK PEG SCH (08:42)
[2018-03-17] MEDS: ASPIRIN 81 MG CHEW TAB PO SCH (08:42)
[2018-03-17] MEDS ORDERED: SERTRALINE HCL 50 MG TAB PO SCH (09:00)
--- NOTE | 2018-03-17 15:08 | Progress Note ---
DATE: March 17, 2018 PSYCHIATRIC PROGRESS NOTE Patient evaluated and events noted. Patient is found lying on her bed. She is sleeping but easily arousable. She is doing better. She denies any depression, anxiety. She denies any hallucinations. She denies any suicidal ideation. She denies any problems with medications. Patient has clearance for discharge to residential facility as per nursing staff by medical. ASSESSMENT: Major depressive disorder, recurrent; unspecified psychosis. PLAN 1. Continue with Zoloft 50 mg p.o. daily. 2. Continue Remeron 15 mg p.o. nightly. 3. Continue with Risperdal 0.5 mg p.o. nightly. 4. Monitor for mood and psychosis. 5. Supportive therapy. Job#: [id number] TALYA
--- NOTE | 2018-03-17 19:46 | Discharge Summary ---
HISTORY/HOSPITAL COURSE: Patient is a 62-year-old female with a past medical history positive for right CVA with left hemiplegia, hypertension, chronic renal insufficiency, and diabetes. She lives in a residential. Apparently she refused to eat and drink. She was very dehydrated, came to the hospital for a PEG tube placement. Because of the dehydration and the hyponatremia and the acute renal failure, she was started on IV fluids. The BUN and creatinine came to her baseline numbers. The patient was found to have a urinary tract infection with 2 different bacteria such as E. coli and also enterococcus. She was started on IV Zyvox and IV Levaquin. Patient finished the course of antibiotics. Followup urine culture showed evidence of a yeast. We are going to start her on Diflucan. Patient is going to go back to the residential today. She has been very depressed, as she was before. We called Dr. Carvalho for a psych evaluation, and he optimized her treatment and the patient is going to go back to a residential. She is on Remeron at bedtime and Ativan as needed. Patient is going to go back to the residential today. PHYSICAL EXAMINATION HEART: Shows regular rhythm, normal S1 and S2 sounds. LUNGS: Clear bilaterally. ABDOMEN: Soft. She has a PEG tube in place. EXTREMITIES: Show no evidence of cyanosis, edema or trauma. FINAL IMPRESSION 1. Anorexia, status post percutaneous endoscopic gastrotomy tube placement. 2. Right cerebrovascular accident with left hemiplegia. 3. Hyponatremia. 4. [id number] renal failure stage 3. 5. Hypertensive nephropathy. 6. Diabetes mellitus type 2 with diabetic nephropathy. Patient will continue with the current medication regimen. She has been started on an antihypertensive regimen, which sometimes she refuses. She is on Catapres patch 0.3 mg once a week. She is on amlodipine 5 mg daily. She is on aspirin 81 mg daily, Plavix 75 mg daily, MiraLAX 17 g daily, lisinopril 20 mg daily, Zoloft 50 mg daily, Remeron 15 mg at bedtime, Risperdal 0.5 mg at bedtime, Tylenol 325 mg q.4 h. as needed for pain and fever. Patient is going to go back to the residential, which is [facility]. Dr. Carvalho has recommended followup by a psychiatrist, of course. JAMISON OWENS MD Job#: [id number] EV
[2018-03-18] MEDS ORDERED: FLUCONAZOLE 100 MG TAB PO SCH (17:00)
== END 2018-03-17 16:05 | DRG 641 ==
LOC: MED/SURG2 14:53
PROVIDERS: ADMIT Internal Medicine; ATTEND Internal Medicine
PROC: 0DB78ZX Excision of Stomach, Pylorus, Via Natural or Artificial Opening Endoscopic, Diagnostic (ICD-10-PCS; 2018-03-13)
PROC: 0DH63UZ Insertion of Feeding Device into Stomach, Percutaneous Approach (ICD-10-PCS; 2018-03-13)
PROC: 0DB68ZX Excision of Stomach, Via Natural or Artificial Opening Endoscopic, Diagnostic (ICD-10-PCS; principal; 2018-03-13 07:00)
DX: E46 Unspecified protein-calorie malnutrition (principal); I69.354 Hemiplegia and hemiparesis following cerebral infarction affecting left non-dominant side; N17.9 Acute kidney failure, unspecified; N39.0 Urinary tract infection, site not specified; F33.1 Major depressive disorder, recurrent, moderate; N18.4 Chronic kidney disease, stage 4 (severe); E87.1 Hypo-osmolality and hyponatremia; R63.0 Anorexia; E86.0 Dehydration; E11.22 Type 2 diabetes mellitus with diabetic chronic kidney disease; I12.9 Hypertensive chronic kidney disease with stage 1 through stage 4 chronic kidney disease, or unspecified chronic kidney disease; Z79.4 Long term (current) use of insulin; R62.7 Adult failure to thrive; I69.321 Dysphasia following cerebral infarction; E11.21 Type 2 diabetes mellitus with diabetic nephropathy; B95.2 Enterococcus as the cause of diseases classified elsewhere; B96.89 Other specified bacterial agents as the cause of diseases classified elsewhere; B96.20 Unspecified Escherichia coli [E. coli] as the cause of diseases classified elsewhere; D63.1 Anemia in chronic kidney disease; K59.00 Constipation, unspecified; K31.7 Polyp of stomach and duodenum; Z68.38 Body mass index [BMI] 38.0-38.9, adult
CPT/HCPCS: 36415; 70450; 80048; 80202; 81001; 82948; 83735; 85025; 85610; 87040; 87086; 87186; 88305; 88312; 93005; J0360; J1644; J1956; J2020; J3475; J3480; J7042; J7050; J7070

== ENCOUNTER 2018-03-27 18:14 | Inpatient (IN) | payer OTHER ==
[~2018-03-27] VITALS: Ht 162.6 cm; Wt 102.1 kg
[~2018-03-27 18:14] MED LIST: ACIDOPHILUS1 EAC1 PO; AMLODIPINE BESY10 MG PO; ASPIR 8181 MG; ATORVASTATIN CA20 MG PO; BACLOFEN10 MG PO; CARVEDILOL12.5 MG PO; CLOPIDOGREL75 MG PO; DOCUSATE SODIU100 MG PO; HYDRALAZINE HCL10 MG PO; LEVEMIR100 UNIT/1 SC; LISINOPRIL10 MG PO; MULTI-VITAMIN1 EACH PO; PROZAC20 MG PO; VITAMIN D1000 UNI1 PO
--- OUTSIDE RECORDS SUMMARY | 2018-03-27 18:16 | XMS REPORT | Clinical Summary ---
Author Author [facility] Address Unknown Phone Unavailable Care Team Providers [facility] [employer] Name Role Phone PCP Unavailable Allergies No [...] 8 (eight) hours. Active 0.1 % Drop hydrALAZINE (APRESOLINE) Take 1 tablet (25 mg 90 tablet 11 05/25/20 05/25/20 25 MG tablet total) by mouth 3 (three) 16 17 times daily. Active Problems Problem Noted Date Syncope, unspecified syncope type 01/17/2017 Hypertensive urgency 01/17/2017 Dysuria 01/17/2017 Chest pain, unspecified 05/23/2016 Coronary artery disease Diabetes mellitus (HCC) Hypertension Social History Tobacco Use Types Packs/Day Years Used Date Never Smoker Alcohol Use Drinks/Week oz/Week Comments No Sex Assigned at Date Recorded Not on file Last Filed Vital Signs Not on file Plan of Treatment Not on file Results Not on fileafter 03/26/2017
[2018-03-27] MEDS ORDERED: SODIUM CHLORIDE 0.9% 1000ML 1,000 ML IV STA (18:17)
--- OUTSIDE RECORDS SUMMARY | 2018-03-27 18:17 | XMS REPORT | Continuity of Care Document ---
Author Author [facility] Organization [facility] Address [address] [place] [address] Phone Unavailable Care Team Providers Care Harness Worker Name Role Phone JAMISON OWENS MD PCP Insurance Providers Guarantor Julian Sanford Address [address] [place] [address] Email [facility] P[facility] Care Policy Number [id number] Subscriber's Name Julian Sanford Relationship 18 Self / Same As Patient Group Number [id number] Group Name [place] [employer] Effective Date 11 Advance Directives Directive Response Recorded Date/Time Does the patient have an advance directive? No 03/08/18 7:59am If yes, is advance directive on file with [facility]? No 03/08/18 7:59am If not on file with [facility] will patient provide a copy? No 03/08/18 7:59am Do you have a Directive to Physician? No 03/08/18 7:59am Do you have a Medical Power of Bell Maker? No 03/08/18 7:59am Do you have an out of hospital Do Not Resuscitate Order? No 04/25/18 7:59am Do you have any special needs we should be aware of? No 03/08/18 7:59am Do you have a support person here with you today? No 03/08/18 7:59am Did patient receive Notice of Privacy Practices? Yes 03/08/18 7:59am Did patient receive patient rights and responsibilities? Yes 03/08/18 7:59am Problems No problem information available. Medications Current Home Medications Medication Dose Units Route Directions Days Qty Instructions Start Date Amlodipine Besylate 10 Mg Tablet 10 Mg Oral Bedtime 30 Tab Aspirin (Aspir 81) 81 Mg Tablet.dr Mg Daily Atorvastatin Calcium 20 Mg Tablet 80 Mg Oral Bedtime 30 Tab Baclofen 10 Mg Tablet 10 Mg Oral Twice A Day 90 Tab Carvedilol 12.5 Mg Tablet 25 Mg Oral Twice A Day 60 Tab Cholecalciferol (Vitamin D3) (Vitamin D) 1,000 Unit Tablet 5,000 Unit Oral Daily 30 Tab Clopidogrel Bisulfate (Clopidogrel) 75 Mg Tablet 75 Mg Oral Daily 30 Tab Docusate Sodium 100 Mg Capsule 100 Mg Oral Twice A Day Fluoxetine Hcl (Prozac) 20 Mg Capsule 20 Mg Oral Bedtime 30 Tab Insulin Detemir (Levemir) 100 Unit/1 Ml Vial 25 Unit Subcutaneously Bedtime Lactobacillus Acidophilus (Acidophilus) 1 Each Tab.chew Oral Twice A Day Lisinopril 10 Mg Tablet 30 Mg Oral Daily 30 Tab Multivitamin (Multi-Vitamin Daily) 1 Each Tablet Mg Oral Daily Past Home Medications Medication Directions Ordered Status Hydralazine Hcl 10 Mg Tablet, 50 Mg Oral Three Times A Day Discontinued Social History Social History Problem Response Recorded Date/Time Onset Date Status Hx Psychiatric Problems No 03/08/2018 3:42pm Not Applicable Not Applicable Hx Eating Disorder Y - NOT ABLE TO SWALLOW 03/08/2018 3:42pm Not Applicable Not Applicable Hx Depression Yes 03/08/2018 3:42pm Not Applicable Not Applicable Hx Alcohol Use No 03/08/2018 3:42pm Not Applicable Not Applicable Hx Physical Abuse No 03/08/2018 3:42pm Not Applicable Not Applicable Hospital Discharge Instructions No hospital discharge instruction information available. Plan of Care Discharge Date 03/17/18 4:05pm Disposition [facility]) Prescriptions See Medication Section Functional Status Query Response Date Recorded Ambulation Ability Total Assistance March 08, 2018 3:30pm Toileting Ability Total Assistance March 16, 2018 6:04pm Allergies, Adverse Reactions, Alerts No known allergies. Immunizations No immunization information available. Vital Signs Acute Vital Signs Vital Response Date/Time Temperature (Fahrenheit) 97.8 degrees F (97.6 - 99.5) 03/17/2018 8:42am Pulse Pulse Rate (adult) 96 bpm (60 - 90) 03/17/2018 8:42am Respiratory Rate 20 bpm (12 - 24) 03/17/2018 8:42am Blood Pressure 132/66 mm Hg 03/17/2018 8:42am Height 5 ft 4 in 03/13/2018 2:00pm Weight 225 lb 03/13/2018 2:00pm Body Mass Index 38.6 kg/m^2 03/13/2018 2:00pm Results Laboratory Results Test Name Result Units Flags Reference Collection Date/Time Result Date/ Time Comments White Blood Count 6.48 x10e3/uL 4.8-10.8 03/08/2018 4:05pm 03/08/2018 4 :23pm Red Blood Count 3.64 x10e6/uL 3.6-5.1 03/08/2018 4:05pm 03/08/2018 4: 23pm Hemoglobin 9.7 g/dL L 12.0-16.0 03/08/2018 4:05pm 03/08/2018 4:23pm Hematocrit 29.6 % L 34.2-44.1 03/08/2018 4:05pm 03/08/2018 4:23pm Mean Corpuscular Volume 81.3 fL 81-99 03/08/2018 4:05pm 03/08/2018 4: 23pm Mean Corpuscular Hemoglobin 26.6 pg L 28-32 03/08/2018 4:05pm 2017 4:23pm Mean Corpuscular Hemoglobin Concent 32.8 g/dL 31-35 03/08/2018 4:05pm 03/08/2018 4:23pm Red Cell Distribution Width 14.0 % 11.7-14.4 03/08/2018 4:05pm 2017 4:23pm Platelet Count 223 x10e3/uL 140-360 03/08/2018 4:05pm 03/08/2018 4: 23pm Neutrophils (%) (Auto) 68.1 % 38.7-80.0 03/08/2018 4:05pm 03/08/2018 4: 23pm Lymphocytes (%) (Auto) 24.7 % 18.0-39.1 03/08/2018 4:05pm 03/08/2018 4: 23pm Monocytes (%) (Auto) 4.9 % 4.4-11.3 03/08/2018 4:05pm 03/08/2018 4: 23pm Eosinophils (%) (Auto) 1.2 % 0.0-6.0 03/08/2018 4:05pm 03/08/2018 4: 23pm Basophils (%) (Auto) 0.5 % 0.0-1.0 03/08/2018 4:05pm 03/08/2018 4:23pm IM GRANULOCYTES % 0.6 % 0.0-1.0 03/08/2018 4:05pm 03/08/2018 4:23pm Neutrophils # (Auto) 4.4 2.1-6.9 03/08/2018 4:05pm 03/08/2018 4:23pm Lymphocytes # (Auto) 1.6 1.0-3.2 03/08/2018 4:05pm 03/08/2018 4:23pm Monocytes # (Auto) 0.3 0.2-0.8 03/08/2018 4:05pm 03/08/2018 4:23pm Eosinophils # (Auto) 0.1 0.0-0.4 03/08/2018 4:05pm 03/08/2018 4:23pm Basophils # (Auto) 0.0 0.0-0.1 03/08/2018 4:05pm 03/08/2018 4:23pm Absolute Immature Granulocyte (auto 0.04 x10e3/uL 0-0.1 03/08/2018 4: 05pm 03/08/2018 4:23pm Prothrombin Time 16.9 seconds H 11.9-14.5 03/11/2018 5:50am 03/11/2018 7 :06am Prothromb Time International Ratio 1.49 03/11/2018 5:50am 2017 7:06am Oral Anticoagulant Therapy INR Values: 1. Low Intensity Therapy 1.5 - 2.0 2. Moderate Intensity Therapy 2.0 - 3.0 3. High Intensity Therapy(1) 2.5 - 3.5 4. High Intensity Therapy(2) 3.0 - 4.0 5. Panic Value INR > 5.0 Urine Color BROWN H YELLOW 03/08/2018 5:45pm 03/08/2018 6:56pm Urine Clarity TURBID H CLEAR 03/08/2018 5:45pm 03/08/2018 6:56pm Urine Specific [place] 1.020 1.010-1.025 03/08/2018 5:45pm 2017 6:56pm Urine pH 8 H 5 - 7 03/08/2018 5:45pm 03/08/2018 6:56pm Urine Leukocyte Esterase 1+ H NEGATIVE 03/08/2018 5:45pm 03/08/2018 6: 56pm Urine Nitrite POSITIVE H NEGATIVE 03/08/2018 5:45pm 03/08/2018 6:56pm Urine Protein 2+ H NEGATIVE 03/08/2018 5:45pm 03/08/2018 6:56pm Urine Glucose (UA) NEGATIVE NEGATIVE 03/08/2018 5:45pm 03/08/2018 6: 56pm Urine Ketones NEGATIVE NEGATIVE 03/08/2018 5:45pm 03/08/2018 6:56pm Urine Urobilinogen 0.2 mg/dL 0.2 - 1 03/08/2018 5:45pm 03/08/2018 6: 56pm Urine Bilirubin NEGATIVE NEGATIVE 03/08/2018 5:45pm 03/08/2018 6: 56pm Urine Blood TRACE H NEGATIVE 03/08/2018 5:45pm 03/08/2018 6:56pm Urine WBC 0-5 /HPF 0-5 03/08/2018 5:45pm 03/08/2018 7:20pm Urine RBC NONE /HPF 0-5 03/08/2018 5:45pm 03/08/2018 7:20pm Urine Bacteria MANY /HPF H NONE 03/08/2018 5:45pm 03/08/2018 7:20pm Urine Epithelial Cells NONE /LPF NONE 03/08/2018 5:45pm 03/08/2018 7: 20pm Urine Amorphous Sediment FEW FEW 03/08/2018 5:45pm 03/08/2018 7:20pm Sodium Level 139 mmol/L 136-145 03/15/2018 2:20pm 03/15/2018 2:49pm Potassium Level 3.8 mmol/L 3.5-5.1 03/15/2018 2:20pm 03/15/2018 2:49pm Chloride Level 112 mmol/L H 98-107 03/15/2018 2:20pm 03/15/2018 2:49pm Carbon Dioxide Level 21 mmol/L L 22-29 03/15/2018 2:20pm 03/15/2018 2: 49pm Anion Gap 9.8 mmol/L 8-16 03/15/2018 2:20pm 03/15/2018 2:49pm Blood Urea Nitrogen 5 mg/dL L 7-03/15/2018 2:20pm 03/15/2018 2:49pm Creatinine 1.21 mg/dL H 0.57-1.11 03/15/2018 2:20pm 03/15/2018 2:49pm BUN/Creatinine Ratio 4 L 6-03/15/2018 2:20pm 03/15/2018 2:49pm Estimat Glomerular Filtration Rate 55 ML/MIN L 60- 03/15/2018 2:20pm 12/2017 2:49pm Ranges were taken from the National Kidney Disease Education Program and the National Kidney Foundation literature. Reference ranges: 60 or greater: Normal 16-59 (for 3 consecutive months): Chronic kidney disease 15 or less: Kidney failure Glucose Level 121 mg/dL H 74-118 03/15/2018 2:20pm 03/15/2018 2:49pm Calcium Level 9.4 mg/dL 8.4-10.2 03/15/2018 2:20pm 03/15/2018 2:49pm Bedside Glucose 189 mg/dL H 70-120 03/17/2018 3:19pm 03/17/2018 3:41pm Meter ID: [id number] Magnesium Level 1.6 MG/DL 1.3-2.1 03/16/2018 8:10pm 03/16/2018 9:02pm Random Vancomycin Level 7.6 ug/mL 03/12/2018 9:55pm 03/12/2018 11: 29pm Vancomycin Level Trough 12.1 ug/mL *H 5.0-10.0 03/12/2018 12:10am 2017 12:41am Results called to fahad dang at 0040 on 03/12/18 by Velia Rutledge. RB OK. Microbiology Results Procedure Source Organism/Result Collection Date/Time Result Date/Time Result Status Urine Culture Urine,[place] ENTEROCOCCUS FAECALIS 03/08/2018 5:45pm 12:26pm Final ESCHERICHIA COLI 03/08/2018 5:45pm 03/10/2018 12:26pm Final Blood Culture Blood NO GROWTH AFTER 5 DAYS, FINAL REPORT 03/08/2018 6:40pm 03/13/2018 6:49pm Final Urine Culture Urine,Clean Catch [facility]-PRESUMPTIVE 03/16/2018 4: 00am 03/17/2018 10:24am Preliminary [place] [id number] Patient Name: JULIAN SANFORD MR # :[id number] : 1955 Age/Sex: 62/F Admit Physician: JAMISON OWENS MD Admit Date: 03/08/18 Location/Room/Bed: MED/SURG2- 203-1 Discharge Date: Report: Discharge Summary HISTORY OF PRESENT ILLNESS/HOSPITAL COURSE: The patient is a 62-year-old female with past medical history positive for right CVA with late hemiplegia, history of hypertension. Patient came here because she was essentially refusing to eat. She was found to have hyponatremia, acute renal insufficiency, diabetic nephropathy, diabetic hypertensive nephropathy and also major depression. A PEG tube was in place. Patient was found to have UTI with a negative Enterococcal. She was started on Levaquin and Zyvox. Patient's blood pressure extremely high today in the 180s. We are going to start her on lisinopril 10 mg daily, Norvasc 5 mg daily and want her blood pressure come back to normal and the patient might be able to go to the detention. Also her potassium was low at 3.3. We are going to replace the potassium with 40 mEq of potassium through the PEG tube. We are going to give magnesium sulfate 2 grams IV one time. The magnesium is in the low side of normal number. Once the potassium, magnesium and blood pressure is under reasonably normal number, the patient can go back to the detention. PHYSICAL EXAM HEART: Showed regular rhythm. Normal S1, S2 sounds. LUNGS: Clear bilaterally. ABDOMEN: Soft. Got the PEG tube in place. EXTREMITIES: Show no evidence of cyanosis or trauma. VITAL SIGNS: Blood pressure 159/74, temperature 97.2, heart rate 75 per minute, respiratory rate 20 per minute. Oxygen saturation 98%. LABORATORY STUDIES: We have BMP with a sodium 143, potassium 3.3, chloride 118. CO2 18, BUN 5, creatinine 1.14, glucose 148. CBC white blood count 6.48, hemoglobin 9.7, hematocrit 29.6, platelet count 223,000. PT 16.9, INR 1.49. FINAL IMPRESSIONS 1. Anorexia status post PEG tube placement. 2. Uncontrolled hypertension with hypertensive nephropathy. 3. Urinary tract infection with enterococcus, gram-negative bacteria. 4. Diabetes mellitus type 2 with diabetic nephropathy. 5. Hypertension with hypertensive nephropathy. 6. Chronic renal insufficiency stage 2. 7. Anemia of chronic disease secondary to chronic renal insufficiency. 8. Hypokalemia. 9. Major depression. 10. Anorexia status post PEG tube placement. 11. Right cerebrovascular accident with left hemiplegia. 12. Hyponatremia which is resolved. PLAN OF TREATMENT: We are going to start her on lisinopril 10 mg daily, Norvasc 5 mg daily. Replete potassium, replete magnesium. Recheck potassium and magnesium level. Continue PEG tube feedings. We are going to discontinue IV fluids. Patient going to go back to detention as soon as we have blood pressure under control and potassium and magnesium back to normal. Also continue Levaquin 500 mg IV daily, Zyvox 300 mg IV twice a day due to urinary tract infection. The case has been discussed with the at the bedside. Time spent: Around 40 minutes. JAMISON OWENS MD Job#: [id number] DG Dictated By: JAMISON OWENS MD Transcribed By: SMEDS on 03/14/18 <Electronically signed by JAMISON OWENS MD>03/15/18 1151 Procedures Procedure Status Date Provider(s) Esophagogastroduodenoscopy (EGD) with placement of percutaneous endoscopic gastrostomy (PEG) Completed 03/13/18 RAMIN RAND MD Computed tomography of brain without radiopaque contrast Active 03/15/18 JAMISON OWENS MD Encounters Encounter Location Arrival/Admit Date Discharge/Depart Date Attending Provider Discharged Inpatient [facility] 03/08/18 2:53pm 03/17/18 4:05pm JAMISON OWENS MD
--- OUTSIDE RECORDS SUMMARY | 2018-03-27 18:34 | XMS REPORT | Clinical Summary ---
Author Author [facility] Address Unknown Phone Unavailable Care Team Providers Care Biofuels Production Technician Name Role Phone PCP Unavailable Allergies No [...]
[2018-03-27 19:03] LABS: BASOPHILS # (AUTO) 0.1 (0.0-0.1); BASOPHILS % 0.7 % (0.0-1.0); EOSINOPHILS # (AUTO) 0.3 (0.0-0.4); EOSINOPHILS % 3.4 % (0.0-6.0); HEMOGLOBIN 10.7 g/dL (12.0-16.0); LYMPHOCYTES # (AUTO) 2.2 (1.0-3.2); LYMPHOCYTES % 26.8 % (18.0-39.1); MEAN CORPUSCULAR HEMOGLOBIN 26.7 pg (28-32); MEAN CORPUSCULAR HGB CONC 33.4 g/dL (31-35); MEAN CORPUSCULAR VOLUME 79.8 fL (81-99); MONOCYTES # (AUTO) 0.4 (0.2-0.8); NEUTROPHILS # (AUTO) 5.1 (2.1-6.9); NEUTROPHILS % 63.7 % (38.7-80.0); PLATELET COUNT 354 x10e3/uL (140-360); RED BLOOD COUNT 4.01 x10e6/uL (3.6-5.1); RED CELL DISTRIBUTION WIDTH 14.8 % (11.7-14.4)
[2018-03-27 19:08] LABS: CLARITY,URINE CLEAR (CLEAR); COLOR,URINE YELLOW (YELLOW); LEUKOCYTE ESTERASE ,URINE NEGATIVE (NEGATIVE); NITRITE,URINE NEGATIVE (NEGATIVE); PROTEIN,URINE DIPSTICK NEGATIVE (NEGATIVE)
[2018-03-27 19:09] LABS: BILIRUBIN,URINE NEGATIVE (NEGATIVE); KETONES,URINE 1+ (NEGATIVE); URINE UROBILINOGEN 0.2 mg/dL (0.2 - 1)
[2018-03-27 19:10] LABS: INR 1.01; PROTHROMBIN TIME 12.5 seconds (11.9-14.5)
--- NOTE | 2018-03-27 19:11 | Diagnostic Imaging Report ---
Exam: Head CT without contrast History: Altered mental status. Comparison studies: CT head 03/15/18 Technique: Axial images were obtained from the skull base to the vertex. Coronal and sagittal images reconstructed from the axial data. Intravenous contrast: None Findings: Scalp: No abnormalities. Bones: No fractures, blastic or lytic lesions. Brain sulci: Mildly prominent. Ventricles: Mild compensatory dilatation. No hydrocephalus. Extra-axial spaces: No masses, no fluid collection. Parenchyma: No acute hemorrhage or acute cortical vascular insults. Chronic lacunar infarcts at the right striatocapsular and globus pallidus, stable. Few hypodensities in the supratentorial white matter are nonspecific but most compatible with chronic small vessel ischemic changes. Sellar/suprasellar region: No abnormalities. Craniocervical junction: Patent foramen magnum. No Chiari one malformation. Incidental findings: Atherosclerotic calcifications in the carotid siphons. Chronic small depressed fracture or focal dehiscence in the left lamina papyracea. IMPRESSION: No acute intracranial abnormalities. Chronic findings: 1. Mild generalized volume loss. 2. Mild microvascular ischemic changes. 3. Stable chronic lacunar infarcts as described. Signed by: DR Boom Conn M.D. on 03/27/2018 7:08 PM
[2018-03-27 19:19] LABS: ALANINE AMINOTRANSFERASE 51 IU/L (0-55); ALBUMIN 3.1 g/dL (3.5-5.0); ALBUMIN/GLOBULIN RATIO 0.6 (0.8-2.0); ALKALINE PHOSPHATASE 121 IU/L (40-150); ANION GAP 16.8 mmol/L (8-16); BLOOD UREA NITROGEN 53 mg/dL (7-26); BUN/CREATININE RATIO 36 (6-25); CALCIUM 10.9 mg/dL (8.4-10.2); CARBON DIOXIDE 27 mmol/L (22-29); CHLORIDE 101 mmol/L (98-107); CREATINE KINASE 22 IU/L (29-168); CREATININE, SERUM 1.49 mg/dL (0.57-1.11); EST GLOMERULAR FILTRATION RATE 43 ML/MIN (60-); GLUCOSE 197 mg/dL (74-118); MAGNESIUM 2.2 MG/DL (1.3-2.1); POTASSIUM 4.8 mmol/L (3.5-5.1); SODIUM 140 mmol/L (136-145)
[2018-03-27 19:21] LABS: BACTERIA,URINE MANY /HPF; EPITHELIAL CELLS,URINE FEW /LPF; WBC,URINE (MAN) 0-5 /HPF (0-5); YEAST,URINE FEW
[2018-03-27 19:26] LABS: B-TYPE NATRIURETIC PEPTIDE2 < 10.0 pg/mL (0-100)
[2018-03-27 19:41] LABS: THYROID STIMULATING HORMONE 3.565 uIU/mL (0.350-4.940)
--- NOTE | 2018-03-27 20:36 | Diagnostic Imaging Report ---
EXAMINATION: CHEST SINGLE (PORTABLE) INDICATION: Chest pain. A mass. COMPARISON: None FINDINGS: TUBES and LINES: None. Loop recorder projected on the left upper quadrant. LUNGS: Mild elevation of the right hemidiaphragm. There is no evidence of pneumonia or pulmonary edema. PLEURA: No pleural effusion or pneumothorax. HEART AND MEDIASTINUM: The cardiomediastinal silhouette is unremarkable. Mild calcification of the aortic arch. BONES AND SOFT TISSUES: No acute osseous lesion. Soft tissues are unremarkable. UPPER ABDOMEN: No free air under the diaphragm. IMPRESSION: No acute thoracic abnormality. Signed by: Dr. Angelica Sanabria M.D. on 03/27/2018 8:33 PM
[2018-03-27] MEDS ORDERED: DEXTROSE 50% SYRINGE 50 ML IV PRN (23:45)
[2018-03-27] MEDS ORDERED: NITROGLYCERIN 0.4 MG SUBL SL PRN (23:45)
[2018-03-27] MEDS: NITROGLYCERIN 2% OINT 1 GM PKT TOP SCH (23:58)
[2018-03-28] VITALS (11 sets, daily range): BP systolic 149–167; BP diastolic 65–92
[2018-03-28] MEDS ORDERED: CLONIDINE HCL 0.3MG/24 HR PATCH TOP SCH
[2018-03-28] MEDS ORDERED: CLONIDINE HCL 0.1 MG/24 HR 1 EA PATCH TOP SCH
[2018-03-28] MEDS ORDERED: FAMOTIDINE 20 MG/2 ML VIAL IV SCH
[2018-03-28] MEDS ORDERED: HEPARIN SO5000 UNIT/ SC (00:06)
[2018-03-28] MEDS ORDERED: LISINOPRIL20 MG PEG (00:06)
[2018-03-28] MEDS ORDERED: CATAPRES-TTS 31 EA TD (00:06)
[2018-03-28] MEDS ORDERED: MIRTAZAPINE15 MG PEG (00:06)
[2018-03-28] MEDS ORDERED: MIRALAX17 GM PEG (00:06)
[2018-03-28] MEDS ORDERED: ACETAMINOPHEN325 M1 PEG (00:06)
[2018-03-28] MEDS ORDERED: ZOFRAN ODT4 MG SL (00:06)
[2018-03-28] MEDS ORDERED: ZOLOFT50 MG PEG (00:06)
[2018-03-28] MEDS ORDERED: PLAVIX75 MG PEG (00:06)
[2018-03-28] MEDS ORDERED: AMLODIPINE BESYL5 MG PEG (00:06)
[2018-03-28] MEDS ORDERED: ASPIR 8181 MG PEG (00:06)
[2018-03-28] MEDS ORDERED: LEVEMIR100 UNIT/1 SC ×2 (00:06)
[2018-03-28] MEDS ORDERED: HYDRALAZINE HCL 20 MG/ML VIAL IV STA (01:00)
[2018-03-28] MEDS ORDERED: HYDRALAZINE HCL 20 MG/ML VIAL IV PRN (01:00)
[2018-03-28] MEDS ORDERED: LABETALOL HCL 5 MG/ML 20ML VIAL IV STA (01:40)
[2018-03-28 03:08] LABS: CREATINE KINASE 16 IU/L (29-168)
[2018-03-28] MEDS: NITROGLYCERIN 2% OINT 1 GM PKT TOP SCH ×3 (05:25→17:23)
[2018-03-28 06:47] LABS: BASOPHILS # (AUTO) 0.1 (0.0-0.1); BASOPHILS % 0.6 % (0.0-1.0); EOSINOPHILS % 0.3 % (0.0-6.0); HEMOGLOBIN 10.9 g/dL (12.0-16.0); LYMPHOCYTES # (AUTO) 1.4 (1.0-3.2); LYMPHOCYTES % 15.1 % (18.0-39.1); MEAN CORPUSCULAR HEMOGLOBIN 26.4 pg (28-32); MEAN CORPUSCULAR VOLUME 79.9 fL (81-99); MONOCYTES # (AUTO) 0.4 (0.2-0.8); MONOCYTES % 4.5 % (4.4-11.3); NEUTROPHILS # (AUTO) 7.3 (2.1-6.9); NEUTROPHILS % 78.7 % (38.7-80.0); PLATELET COUNT 346 x10e3/uL (140-360); RED BLOOD COUNT 4.13 x10e6/uL (3.6-5.1); RED CELL DISTRIBUTION WIDTH 14.7 % (11.7-14.4)
[2018-03-28 07:11] LABS: ALBUMIN 3.1 g/dL (3.5-5.0); ALBUMIN/GLOBULIN RATIO 0.7 (0.8-2.0); ANION GAP 18.1 mmol/L (8-16); CALCIUM 10.5 mg/dL (8.4-10.2); CREATININE, SERUM 1.45 mg/dL (0.57-1.11); POTASSIUM 5.1 mmol/L (3.5-5.1)
[2018-03-28] MEDS: INSULIN REGULAR, HUMAN 100 UNIT/1 ML 3ML VIAL SQ SCH ×4 (07:30→21:00)
[2018-03-28] MEDS: ASPIRIN 81 MG ENTERIC COATED PO SCH (09:59)
[2018-03-28] MEDS: FAMOTIDINE 20 MG/2 ML VIAL IV SCH ×2 (09:59→21:49)
[2018-03-28 11:12] LABS: CREATINE KINASE 19 IU/L (29-168)
--- NOTE | 2018-03-28 13:45 | Consultation ---
DATE OF CONSULTATION: March 28, 2018 CARDIOLOGY CONSULTATION REQUESTING PHYSICIAN: Dr. Pastora Escobedo REASON FOR CONSULTATION: Chest pain. HISTORY OF PRESENT ILLNESS: This is a 62-year-old woman with history of right CVA with resulting left hemiplegia, hypertension, diabetes mellitus, hyperlipidemia, and chronic kidney disease who presented with complaints of chest pain and altered mental status. The patient is an extremely poor historian. She is a resident of [facility]. No significant history could be obtained from the patient as she did not respond to questions. REVIEW OF SYSTEMS: Unable to obtain secondary to patient's reduced responsiveness. Negative except as per HPI. PAST MEDICAL HISTORY 1. History of right CVA with left hemiparesis. 2. Hypertension. 3. Diabetes mellitus. 4. Hyperlipidemia. 5. Depression. PAST SURGICAL HISTORY 1. Cataract surgery. 2. Oral surgery. SOCIAL HISTORY: No tobacco or alcohol. FAMILY HISTORY: Pertinent for heart disease in the mother. PHYSICAL EXAMINATION VITAL SIGNS: Temperature 96.6 degrees, pulse 91, respiratory 18, blood pressure 165/92. Oxygen saturation is 97% on room air. GENERAL: Well developed, well nourished woman. No acute distress. HEENT: Normocephalic, atraumatic. Pupils equal. No scleral icterus. NECK: Supple. No thyromegaly or cervical lymphadenopathy. No carotid bruits. LUNGS: Clear to auscultation bilaterally. No wheezes or crackles. CARDIOVASCULAR: Normal rate, regular rhythm. No murmur. Normal S1, S2. ABDOMEN: Soft, nontender. EXTREMITIES: No edema. NEURO: Left hemiparesis is noted. LABS: 69.33, hemoglobin 10.9, hematocrit 33, platelets 346. Sodium 143, potassium 5.1, chloride 106, CO2 24, BUN 23, creatinine 1.45. Troponin less than 0.001. BNP less than 10. Cholesterol 201, triglycerides 114, LDL 138, HDL 40. EKG: Normal sinus rhythm, incomplete right bundle branch block. CHEST X-RAY: No acute thoracic abnormality. CT BRAIN: No acute intracranial abnormalities. Stable chronic lacunar infarcts. Mild microvascular ischemic changes. Mild generalized volume loss. IMPRESSION 1. Chest pain. 2. History of right cerebrovascular accident with left hemiparesis. 3. Bed-bound status. 4. Diabetes mellitus. 5. Hypertension. 6. Hyperlipidemia. 7. Chronic kidney disease stage 3. RECOMMENDATIONS: Trend cardiac enzymes to rule out myocardial infarction. Obtain echocardiogram. Patient is reported to be bed-bound. Given her comorbid diseases and debility, recommend conservative medical management. Continue aspirin. Start carvedilol for further blood pressure control. Resume amlodipine and Plavix. She would benefit from cholesterol-lowering therapy as well. Monitor patient on telemetry. Thank you for this consult. We will continue to follow. Job#: [id number] TALYA
[2018-03-28] MEDS: CARVEDILOL 12.5 MG TAB PO SCH (17:23)
--- NOTE | 2018-03-28 19:05 | Consultation ---
DATE OF CONSULTATION: March 28, 2018 NEUROLOGICAL CONSULTATION HISTORY OF PRESENT ILLNESS: Ms. 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 Unfortunately, the patient is aphasic. The history is provided by her mother who is at the bedside. The patient's mother reports Ms. Sanford was hospitalized approximately 6 weeks ago for poorly controlled hypertension and diabetes mellitus type 2. It was during this hospitalization the patient experienced her first stroke with residual deficits of dysarthria without aphasia. Approximately 1 to 2 weeks after this hospitalization, the patient reportedly experienced a 2nd stroke with residual left hemiplegia affecting the face, arm, and leg. Following her 2nd hospitalization, the patient was transferred to a rehabilitation facility. However, she remained there for only a few days. Dissatisfaction with this facility led the patient to be transferred to [facility]. At the [facility], the patient was receiving speech, physical, and occupational therapies. As of , 03/23/2018, the patient's mother reports Ms. Sanford's speech was severely dysarthric. However, she had no difficulty producing words nor an understanding when others spoke to her. However, while visiting the patient at the rehabilitation center on March 25, 2018, the patient's mother noticed Ms. Sanford was not speaking at all. Ms. Sanford was transferred from [facility] to [facility] for further evaluation and treatment of chest pain, renal insufficiency, and aphasia on February 25, 2018. REVIEW OF SYSTEMS: Unable to obtain as the patient is aphasic. PAST MEDICAL HISTORY: Hypertension, hyperlipidemia, diabetes mellitus type 2, gastroesophageal reflux disease, severe depression in response to the of her apparently 2 months ago, a prior stroke or strokes with residual dysarthria and left hemiplegia, and cognitive impairment. PAST SURGICAL HISTORY: PEG tube placement, partial hysterectomy, cataract surgery. PAST HOSPITALIZATIONS: Surgeries and procedures listed, stroke, hypertension and diabetes mellitus, childbirth times 2. FAMILY HISTORY: Hypertension and diabetes mellitus type 2. SOCIAL HISTORY: Ms. Sanford is a . She is no longer able to work. Her mother is in the process of applying for disability on her behalf. There is no current or prior history of tobacco use or recreational drug use. Her mother endorses occasional alcohol consumption. HOME MEDICATIONS: Plavix 75 mg per PEG daily, Acetaminophen 325 mg per PEG every 4 hours as needed for pain, Norvasc 5 mg per PEG daily, Aspirin 81 mg per PEG daily, Clonidine 0.3 mg patch applied daily, heparin 5000 units subcutaneously every 12 hours, Levemir 5 units subcutaneously daily, Levemir 10 units subcutaneously at bedtime daily, lisinopril 20 mg per PEG daily, Remeron 15 mg per PEG at bedtime daily, Zofran 4 mg sublingually every 4 hours as needed for nausea, MiraLAX 17 grams per PEG daily, Zoloft 50 mg per PEG daily, tube feeds. ALLERGIES: NO KNOWN DRUG ALLERGIES. NO KNOWN FOOD ALLERGIES. NO KNOWN ALLERGIES TO LATEX. NO KNOWN ALLERGIES TO IODINE OR OTHER CONTRAST MATERIALS. PHYSICAL EXAMINATION: VITAL SIGNS: Height 64 inches, weight 225 pounds, BMI 38.6 kilograms per meter squared, blood pressure 165/82 mmHg, pulse 100 beats per minute, respiratory rate 18 breaths per minute, oxygen saturation 98% on room air. GENERAL: The patient is awake and alert. Does not appear distressed. Obese. HEENT: Normocephalic and atraumatic. Pupils are surgical. Moist mucous membranes. NECK: Supple. No appreciable thyromegaly. No appreciable carotid bruits. CARDIOVASCULAR: S1 and S2. Tachycardiac. Regular rhythm. No murmurs, rubs or gallops. RESPIRATORY: Clear to auscultation bilaterally. No wheezes, rhonchi or rales. EXTREMITIES: The skin is warm and dry. No clubbing, cyanosis or edema. The posterior tibial and dorsalis pedis pulses are 1+ and symmetric. SKIN: No rashes or lesions. Dry flaking skin over the soles of the feet. NEUROLOGIC: Memory/attention: The patient is awake and alert, aphasic. CRANIAL NERVES: Cranial nerve I: Not tested. Cranial nerves II, III, IV, : Pupils are surgical, react sluggishly to light. Extraocular movements appear grossly intact. No nystagmus. Cranial nerve V: Sensation to light touch appears grossly intact. Strength of the temporalis and masseter muscles is within normal limits. Cranial nerve VII: The face is asymmetric with severe left central facial weakness. Cranial nerve VIII: Hearing is intact to finger rub bilaterally. Cranial nerve IX and X: The soft palate elevates equally and symmetrically. Cranial nerve XI: Normal strength of the bilateral sternocleidomastoid and trapezius muscles. Cranial nerve XII: The tongue protrudes midline and moves symmetrically from side to side. STRENGTH: Bulk is normal, normal functional movements of the right arm and leg. Dense hemiplegia effecting the left arm and left leg. Tone is decreased on the left. DTRs: Deep tendon reflexes are diminished throughout. Plantar responses are flexor bilaterally. SENSATION: The patient withdraws all extremities to peripheral noxious stimulation. CEREBELLAR: Unable to assess. GAIT: Deferred. SPEECH: Spontaneous speech is severely dysarthric with expressive aphasia. No receptive aphasia is appreciated. INVOLUNTARY MOVEMENTS: None. PRONATOR DRIFT: As per motor exam. LABORATORY DATA: Sodium 143, potassium 5.1, chloride 106, carbon dioxide 24, anion gap 18.1, BUN 53, creatinine 1.45, estimated GFR 44, BUN to creatinine ratio is 37, glucose 290, calcium 10.5, total bilirubin 0.2, AST 13, ALT 40, alkaline phosphatase 9, total protein 7.4, albumin 3.1, globulin 4.3, albumin to globulin ratio 0.7, creatinine kinase 22, 16, 19, CK-MB 0.30, 0.30, 0.50, troponin I less than 0.001, less than 0.001, less than 0.001. B-natriuretic peptide 10.0, TSH 3.565, total [id number], triglycerides 114, LDL 138, HDL 40, fingerstick blood glucoses have ranged from 255 to 325 in the past 24 hours. The CBC with differential and platelets reveals a white blood cell count of 9.33 with 78.7% neutrophils, 15.1% lymphocytes, 4.5% monocytes, 0.3% eosinophils and 0.6% basophils. Hemoglobin and hematocrit are 10.9 and 33.0, respectively. Platelet count is 346,000. PT 12.5, INR 1.01, PTT 28.0. Urinalysis is significant for 1+ ketones and many bacteria without white blood cells. Influenza types A, B antigen negative. DIAGNOSTIC STUDIES: EKG on 03/27/2018: Normal sinus rhythm at 82 beats per minute. Chest x-ray 03/27/2018: No acute thoracic abnormality. CT of the brain without contrast on 03/27/2018: On my review, there is no evidence of recent large territorial ischemia, hemorrhage, mass or mass affect. Remote lacunar infarcts are seen in the left striatal capsular region as well as globus pallidus. There is mild to moderate chronic small vessel ischemic disease. Mild diffuse cerebral atrophy. Echocardiogram 03/28/2018: Ejection fraction of 50% to 55%. Left ventricular hypertrophy. No significant valvular disease is identified. ASSESSMENT AND PLAN: Ms. Sanford is a 62-year-old [id number] woman with an extensive past medical history, including a prior stroke or strokes with residual dysarthria and dense left hemiplegia admitted to [facility] with chest pain, renal insufficiency, and a 3 day history of expressive aphasia. The findings on the patient's neurological examination are documented above. Her laboratory data and other diagnostic studies have been reviewed and are documented above. The new onset expressive aphasia is concerning for a new stroke in the left middle cerebral artery distribution, specifically the left posterior frontal lobe near Broca's area. I agree with Dr. Escobedo's plan of repeating a MRI of the brain without contrast to evaluate for new ischemic vascular event. Recommendations for further evaluation or treatment will be made once the results of that study are reviewed. Thank you for this consultation I will continue to follow this patient while she remains in the hospital. TIME SPENT: 50 minutes. Job#: [id number]
[2018-03-28 19:11] LABS: CREATINE KINASE 25 IU/L (29-168)
[2018-03-29] VITALS: BP 156/76
[2018-03-29] MEDS: NITROGLYCERIN 2% OINT 1 GM PKT TOP SCH ×4 (00:40→18:36)
[2018-03-29] MEDS: INSULIN REGULAR, HUMAN 100 UNIT/1 ML 3ML VIAL SQ SCH ×4 (08:18→21:15)
[2018-03-29 08:23] VITALS: BP 158/80
[2018-03-29] MEDS ORDERED: CLOPIDOGREL BISULFATE 75 MG TAB PO SCH (09:00)
[2018-03-29] MEDS ORDERED: AMLODIPINE BESYLATE 5 MG TAB PO SCH (09:00)
[2018-03-29] MEDS: FAMOTIDINE 20 MG/2 ML VIAL IV SCH (11:11)
[2018-03-29] MEDS: ASPIRIN 81 MG ENTERIC COATED PO SCH (11:11)
[2018-03-29] MEDS: CARVEDILOL 12.5 MG TAB PO SCH ×2 (11:11→18:36)
[2018-03-29 12:00] VITALS: BP 168/92
[2018-03-29] MEDS ORDERED: ONDANSETRON HCL 4 MG ORAL DISINTEGRATING TAB SL PRN (12:15)
[2018-03-29] MEDS: CEFTRIAXONE SOD 1 GM VIAL IV SCH (13:26)
--- NOTE | 2018-03-29 13:42 | Progress Note ---
DATE: March 29, 2018 INTERNAL MEDICINE PROGRESS NOTE SUBJECTIVE: The patient is a 62-year-old female with past medical history positive for right cerebrovascular accident with left hemiplegia who lives in a jail, history of severe hypertension, also diabetes mellitus. Patient was originally transferred to the ER because patient was not talking so there was a concern about stroke. CT of the head showed no evidence of any new stroke. Apparently she also complaining of chest pain which she does not have right now. Cardiac enzymes are negative. EKG is unremarkable. Echocardiogram was done, ejection fraction 55% to 60%. Patient was seen by Dr. Diez. Serial troponins x4 are completely now negative. Patient might be able to go back to the jail pretty soon. She is going to be seen by Dr. Rey, cardiology, and Dr. Karen Reyes, neurologist, before going back to a jail. PHYSICAL EXAM VITAL SIGNS: Blood pressure 158/80, temperature 97.9, heart rate 90 per minute, respiratory rate is 16 per minute and oxygen saturation 95%. HEART: Regular rhythm. Normal S1, S2 sounds. LUNGS: Clear bilaterally. ABDOMEN: Soft. She has a PEG tube placement. No tension, distention, or visceromegaly. EXTREMITIES: Show no evidence of cyanosis, edema or trauma. NEUROLOGIC: She is alert. She is able to talk with some difficulty. She does left hemiplegia. On the BMP: Sodium 143, potassium 5.1, chloride 106, CO2 24, BUN 53, creatinine 1.45, glucose 290. CBC: White blood count 9.33, hemoglobin 10.9, hematocrit 33.0, platelet count 346,000, PT 12.5, INR 1.01, PTT 28.0, AST 13, ALT 40, total bilirubin 0.2, alkaline phosphatase 95. FINAL IMPRESSION 1. Episode of aphasia which is resolved. 2. Atypical chest pain. 1. Uncontrolled diabetes mellitus type 2 with chronic renal insufficiency. 2. Hypertensive nephropathy. PLAN OF TREATMENT: Continue aspirin 81 mg daily, nitroglycerin 0.4 mg sublingual q.5 minutes p.r.n. for chest pain no more 3 tablets. Continue monitoring blood sugar a.c. and nightly. She is on hydralazine 10 mg IV push every 4 hours as needed for hypertension, amlodipine 5 mg daily, carvedilol 12.5 mg twice a day, Pepcid 20 mg q.12 hours, Plavix 75 mg daily, clonidine patch 0.1 mg once a week. Once the blood pressure and the blood sugar is under better control the patient might be able to go back to a jail if okay with consultants. Job#: [id number] DG
--- NOTE | 2018-03-29 13:45 | Progress Note ---
DATE: March 29, 2018 ADDENDUM TO INTERNAL MEDICINE PROGRESS NOTE She also has UTI. We started on Rocephin and we started Diflucan. Job#: [id number] DG
--- NOTE | 2018-03-29 16:33 | Diagnostic Imaging Report ---
Exam: Brain MRI without IV contrast History: Altered mental status, new onset aphasia Comparison studies: Head CTs 03/27/2018 and 03/15/2018 Technique: Axial DWI, 3-D T1 with axial, coronal and sagittal reformats, axial T2*GRE and axial T2 FLAIR. Intravenous contrast: None Findings: Scalp: Normal in signal. No masses. Bone marrow: Normal in signal intensity. Brain sulci: Mildly prominent. Ventricles: Mild compensatory dilatation. No hydrocephalus. Extra-axial spaces: No mass, no fluid collection. Parenchyma: No mass, hemorrhage or acute ischemia. A few scattered and mildly confluent T2 FLAIR hyperintense signal changes in the supratentorial white matter are nonspecific but most compatible with chronic small vessel ischemic changes. There are chronic lacunar infarcts in the right leigh radiata which extend along the lateral margin of the right putamen, within the bilateral lentiform nuclei, in the left thalamus, in the right parieto-occipital periventricular white matter and in the left frontal periventricular white matter. Lacunar infarct centered in the posterior limb in the right internal capsule is with increased DWI signal but with correlate decreased signal on the ADC map consistent with chronic infarct. Subtle increased T2 signal changes extend from the posterior limb of the right internal capsule through the right cerebral peduncle, viviana and right ventral medulla consistent with Wallerian degeneration regional to the the right cortical spinal tract. Suprasellar region: No abnormalities. Craniocervical junction: Patent foramen magnum. No Chiari malformation. Vessels: Normal flow-voids in the arteries and sinuses. Incidental findings: Bilateral intraocular lens replacements. IMPRESSION: No acute intracranial abnormalities. Specifically, no acute ischemia. Chronic findings: 1. Mild generalized volume loss. 2. Moderate chronic microvascular ischemic changes. 3. Multiple chronic lacunar infarcts as described. 4. 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 Signed by: Dr. Julien Cage M.D. on 03/29/2018 4:29 PM
[2018-03-29 16:45] VITALS: BP 162/82
[2018-03-29 19:30] VITALS: BP 141/70
[2018-03-29] MEDS ORDERED: ATORVASTATIN 20 MG TAB PO SCH (21:00)
[2018-03-29] MEDS ORDERED: NON-FORMULARY MEDICATION (Insulin Detemir (Levemir) 10 UNITS) SC SCH (21:00)
[2018-03-29] MEDS ORDERED: INSULIN DETEMIR 100 UNIT/ML PEN SQ SCH (21:00)
[2018-03-29] MEDS: MIRTAZAPINE 15 MG TAB PEG SCH (21:12)
[2018-03-29] MEDS: ATORVASTATIN 40 MG TAB PO SCH (21:12)
[2018-03-29] MEDS: HEPARIN SOD (PORCINE) 5,000 UNIT/ML VIAL SC SCH (21:14)
[2018-03-29 22:46] VITALS: BP 141/70
[2018-03-30] VITALS (7 sets, daily range): BP systolic 83–167; BP diastolic 46–75
[2018-03-30] MEDS: NITROGLYCERIN 2% OINT 1 GM PKT TOP SCH ×4 (00:32→17:39)
--- NOTE | 2018-03-30 01:15 | Progress Note ---
DATE: March 29, 2018 CARDIOLOGY PROGRESS NOTE SUBJECTIVE: Patient denied chest pain. OBJECTIVE VITAL SIGNS: Temperature 98 degrees, pulse 85, respiratory rate 16, blood pressure 162/82, oxygen saturation 98%. GENERAL: Awake, alert, no acute distress. LUNGS: Clear to auscultation bilaterally. No wheezes or crackles. CARDIOVASCULAR: Normal rate, regular rhythm. No murmur. Normal S1 and S2. ABDOMEN: Soft, nontender. EXTREMITIES: No edema. NEURO: Left hemiparesis is present with aphasia and dysarthria. CARDIAC MEDICATIONS 1. Carvedilol 12.5 mg p.o. b.i.d. 2. Atorvastatin 80 mg p.o. nightly. 3. Lisinopril 20 mg p.o. daily. 4. Amlodipine 5 mg p.o. daily. LABS: None today. TELEMETRY: Normal sinus rhythm. IMPRESSION 1. Chest pain. 2. Pseudomonas and yeast urinary tract infection. 3. History of right cerebrovascular accident with left hemiparesis and aphasia. 4. Bedbound status. 5. Diabetes mellitus. 6. Hypertension. 7. Hyperlipidemia. 8. Chronic kidney disease stage 3. RECOMMENDATIONS: Patient ruled out for a myocardial infarction with serial cardiac biomarkers. Patient's blood pressure remains uncontrolled. Titrate up antihypertensive therapies. Given her comorbid diseases and debility, recommend conservative medical therapy. Thank you for this consult. We will continue to follow. Job#: [id number] MARIBEL
[2018-03-30] MEDS: INSULIN REGULAR, HUMAN 100 UNIT/1 ML 3ML VIAL SQ SCH ×4 (07:30→21:00)
[2018-03-30] MEDS: CARVEDILOL 12.5 MG TAB PO SCH ×2 (09:00→16:12)
[2018-03-30] MEDS ORDERED: INSULIN DETEMIR 5 UNIT SC SCH (09:00)
[2018-03-30] MEDS ORDERED: ASPIRIN 81 MG CHEW TAB PEG SCH (09:00)
[2018-03-30] MEDS: SERTRALINE HCL 50 MG TAB PEG SCH (09:00)
[2018-03-30] MEDS: FLUCONAZOLE 100 MG TAB PO SCH (09:00)
[2018-03-30] MEDS: POLYETHYLENE GLYCOL 3350 17 GM PACK PEG SCH (09:00)
[2018-03-30] MEDS ORDERED: LISINOPRIL 20 MG TAB PEG SCH (09:00)
[2018-03-30] MEDS: CLOPIDOGREL BISULFATE 75 MG TAB PEG SCH (09:00)
[2018-03-30] MEDS ORDERED: CLONIDINE HCL 0.3MG/24 HR PATCH TD SCH (09:00)
[2018-03-30] MEDS: AMLODIPINE BESYLATE 5 MG TAB PEG SCH (09:00)
[2018-03-30] MEDS: INSULIN DETEMIR 100 UNIT/ML PEN SQ SCH ×2 (09:00→21:00)
[2018-03-30] MEDS: HEPARIN SOD (PORCINE) 5,000 UNIT/ML VIAL SC SCH ×2 (09:55→21:00)
[2018-03-30] MEDS: CEFTRIAXONE SOD 1 GM VIAL IV SCH (12:15)
--- NOTE | 2018-03-30 13:00 | Progress Note ---
DATE: March 30, 2018 INTERNAL MEDICINE PROGRESS NOTE SUBJECTIVE: The patient has no complaints today. PHYSICAL EXAMINATION VITAL SIGNS: Blood pressure 148/75. Temperature 97.9. Heart rate 91 per minute. Respiratory rate 20 per minute. Oxygen saturation 99%. HEART: Regular rhythm. Normal S1 and S2 sounds. LUNGS: Clear bilaterally. ABDOMEN: Soft. EXTREMITIES: No evidence of cyanosis, edema or trauma. LABS: On the blood work, BMP shows sodium 143, potassium 5.1, chloride 106, CO2 24, BUN 53, creatinine 1.45. Glucose 290. CBC showed white blood count 9.33, hemoglobin 10.9, hematocrit 33.0, platelet count of 346,000. PT 12.5, INR 1.01, PTT 28.0. AST 13, ALT 40, total bilirubin 0.2, alkaline phosphatase 95. FINAL IMPRESSION 1. Old right cerebrovascular accident with no acute ischemia or hemorrhage right now. 2. Uncontrolled diabetes mellitus, type 2, with chronic renal insufficiency. 3. Chronic renal insufficiency, stage 3, secondary to diabetic hypertensive nephropathy. 4. Anemia of chronic disease. 5. Dysphagia on percutaneous endoscopic gastrostomy tube feeding. PLAN OF TREATMENT 1. Continue monitoring blood sugar q.6 h. 2. Continue amlodipine 5 mg daily. 3. Remeron 15 mg at bedtime. 4. Levemir 10 units at bedtime, which we are going to increase to 15 units at bedtime. 5. Continue Lipitor 80 mg daily. 1. Clonidine patch q. 7 days. 2. Plavix 75 mg daily. 3. Zofran 4 mg IV q.4 h. as needed. 4. Levemir 5 units in the morning. 5. Carvedilol 25 mg twice a day. 6. Hydralazine 10 mg IV q.4 h. as needed. 7. Continue heparin 5,000 units subcutaneously twice a day. 8. Ceftriaxone 1 gram IV piggyback once a day for UTI. 9. Continue Tylenol 325 mg q.4 h. as needed. 10. Lisinopril 20 mg daily. 11. Continue sertraline 50 mg daily. 12. Fluconazole 100 mg daily for UTI with yeast. 13. Neurology saw the patient and recommended to just get a tight blood sugar control and blood pressure control. Other than that, the patient might be able to go to a snf pretty soon. Job#: [id number] MH
--- NOTE | 2018-03-30 14:27 | Progress Note ---
DATE: March 30, 2018 CARDIOLOGY PROGRESS NOTE SUBJECTIVE: Patient is complaining of chest pain and arm pain this morning. OBJECTIVE VITAL SIGNS: Temperature 98.1 degrees, pulse 86, respiratory rate 22, blood pressure 116/59, oxygen saturation 100% on room air. GENERAL: Awake, alert, in no acute distress. Dysarthric and aphasic. LUNGS: Clear to auscultation bilaterally. No wheezes or crackles. CARDIOVASCULAR: Normal rate, regular rhythm. No murmur. Normal S1 and S2. ABDOMEN: Soft, nontender. EXTREMITIES: No edema. NEURO: Left hemiparesis is present. CARDIAC MEDICATIONS 1. Carvedilol 25 mg p.o. b.i.d. 2. Plavix 75 mg p.o. daily. 3. Amlodipine 5 mg p.o. daily. 4. Atorvastatin 80 mg p.o. nightly. 5. Lisinopril 30 mg p.o. daily. LABS: None today. TELEMETRY: Normal sinus rhythm. IMPRESSION 1. Chest pain. 2. Pseudomonas and yeast urinary tract infection. 3. History of right cerebrovascular accident with left hemiparesis and aphasia. 4. Bedbound status. 5. Diabetes mellitus. 6. Hypertension. 7. Hyperlipidemia. 8. Chronic kidney disease stage 3. RECOMMENDATIONS: Trend cardiac enzymes. Obtain EKG. We will discontinue clonidine patch and start isosorbide mononitrate. Further titrate up patient's antianginal therapies. Given her comorbid diseases and debility, recommend conservative medical therapy for her chest pain. Thank you for this consult. We will continue to follow. Job#: [id number] MARIBEL
[2018-03-30] MEDS: ISOSORBIDE MONONITRATE 30 MG TAB CR PO SCH (15:30)
[2018-03-30] MEDS: ACETAMINOPHEN 325 MG TAB PEG PRN (17:41)
[2018-03-30 18:40] LABS: CREATINE KINASE 93 IU/L (29-168)
[2018-03-30] MEDS: MIRTAZAPINE 15 MG TAB PEG SCH (21:55)
[2018-03-30] MEDS: ATORVASTATIN 40 MG TAB PO SCH (21:56)
[2018-03-31] VITALS (7 sets, daily range): BP systolic 97–153; BP diastolic 52–69
[2018-03-31 03:09] LABS: CREATINE KINASE 85 IU/L (29-168)
[2018-03-31] MEDS: NITROGLYCERIN 2% OINT 1 GM PKT TOP SCH ×4 (06:00→16:42)
[2018-03-31 07:20] LABS: CREATINE KINASE 87 IU/L (29-168)
[2018-03-31] MEDS: FLUCONAZOLE 100 MG TAB PO SCH (08:44)
[2018-03-31] MEDS: SERTRALINE HCL 50 MG TAB PEG SCH (08:44)
[2018-03-31] MEDS: CARVEDILOL 12.5 MG TAB PO SCH ×2 (08:44→16:42)
[2018-03-31] MEDS: CLOPIDOGREL BISULFATE 75 MG TAB PEG SCH (08:44)
[2018-03-31] MEDS: FAMOTIDINE 20 MG TAB PEG SCH ×2 (08:44→16:41)
[2018-03-31] MEDS: INSULIN REGULAR, HUMAN 100 UNIT/1 ML 3ML VIAL SQ SCH ×4 (08:44→20:44)
[2018-03-31] MEDS: AMLODIPINE BESYLATE 5 MG TAB PEG SCH (08:44)
[2018-03-31] MEDS: POLYETHYLENE GLYCOL 3350 17 GM PACK PEG SCH (08:44)
[2018-03-31] MEDS: ISOSORBIDE MONONITRATE 30 MG TAB CR PO SCH (08:45)
[2018-03-31] MEDS: HEPARIN SOD (PORCINE) 5,000 UNIT/ML VIAL SC SCH ×2 (08:45→20:43)
[2018-03-31] MEDS: LISINOPRIL 20 MG TAB PO SCH (08:45)
[2018-03-31] MEDS: INSULIN DETEMIR 100 UNIT/ML PEN SQ SCH ×2 (08:45→20:45)
[2018-03-31] MEDS: CEFTRIAXONE SOD 1 GM VIAL IV SCH (12:30)
--- NOTE | 2018-03-31 13:43 | Discharge Summary ---
Ms. Sanford is 62-year-old female, a assisted resident, with CVA with left hemiparesis, dementia, chronic kidney disease and diabetes. She came to the emergency room apparently with chest pain. For that, we are going to do medical management. Apparently, the assisted thought the aphasia got worse, so they thought the patient may be having another acute stroke. She has been seen by the neurologist. At the present time, the patient is doing better. The plan is to discharge her back to the assisted. On physical examination, she is awake. She has trouble speaking. Blood pressure is 107/61. Temperature is 98.3. The heart has regular rate. Lungs have poor inspiratory effort. Abdomen is soft. Lower extremities have no edema and no erythema. On the blood work, potassium is 5.1, creatinine 1.45, glucose 290, white count 9.33, hemoglobin 10.9, hematocrit 33.0. The patient had a brain MRI done on the that showed no acute findings, no acute ischemia. DISCHARGE DIAGNOSES 1. Old right cerebrovascular accident with no acute ischemia. 2. Uncontrolled diabetes with chronic renal disease. 3. Chronic kidney disease, stage 3. 4. Anemia of chronic disease. 5. Dysphagia on percutaneous endoscopic gastrostomy tube feedings. The plan at the present time is to discharge the patient back to the assisted. Continue all her medications. The urine culture shows pseudomonas that is sensitive to Rocephin, so probably we can continue that in the assisted for 7 more days. Please see home medication reconciliation list. TWIN CHANG MD Job#: [id number]
[2018-03-31] MEDS: MIRTAZAPINE 15 MG TAB PEG SCH (20:40)
[2018-03-31] MEDS: ATORVASTATIN 40 MG TAB PO SCH (20:41)
[2018-03-31] MEDS ORDERED: TRIMETHOPRIM/SULFAMETHOXAZOLE 160-800 MG TAB PO SCH (21:00)
--- NOTE | 2018-03-31 21:09 | Progress Note ---
DATE: March 31, 2018 CARDIOLOGY PROGRESS NOTE SUBJECTIVE: The patient denies chest pain or shortness of breath. OBJECTIVE VITAL SIGNS: Temperature 98 degrees, pulse 78, respiratory rate 16, blood pressure 131/64, oxygen saturation 96% on room air. GENERAL: Awake, alert, in no acute distress. LUNGS: Clear to auscultation bilaterally. No wheezes or crackles. CARDIOVASCULAR: Normal rate, regular rhythm. No murmur. Normal S1 and S2. ABDOMEN: Soft, nontender. EXTREMITIES: No edema. NEURO: Left hemiparesis is present. The patient is dysarthric and aphasic. CARDIAC MEDICATIONS 1. Carvedilol 25 mg p.o. b.i.d. 2. Plavix 75 mg p.o. daily. 3. Amlodipine 5 mg p.o. daily. 4. Atorvastatin 80 mg p.o. nightly. 5. Lisinopril 30 mg p.o. daily. 6. Isosorbide mononitrate 30 mg p.o. daily LABS: None today. TELEMETRY: Normal sinus rhythm. IMPRESSION 1. Chest pain. 2. Pseudomonas and yeast urinary tract infection. 3. History of right cerebrovascular accident with left hemiparesis and aphasia. 4. Bedbound status. 5. Diabetes mellitus. 6. Hypertension. 7. Hyperlipidemia. 8. Chronic kidney disease stage 3. RECOMMENDATIONS: No evidence of myocardial infarction on repeat serial cardiac biomarkers. Continue current cardiac medications. The patient's blood pressure is labile. We are unable to further titrate up her antianginal therapies at this time. Monitor blood pressure closely. Given her comorbid diseases and debility, recommend conservative medical therapy for the patient's chest pain. Thank you for this consult. We will continue to follow. Job#: [id number]
[2018-04-01] VITALS (8 sets, daily range): BP systolic 119–193; BP diastolic 56–92
[2018-04-01] MEDS: NITROGLYCERIN 2% OINT 1 GM PKT TOP SCH ×5 (00:27→23:49)
[2018-04-01] MEDS: POLYETHYLENE GLYCOL 3350 17 GM PACK PEG SCH (08:11)
[2018-04-01] MEDS: FAMOTIDINE 20 MG TAB PEG SCH ×2 (09:21→17:09)
[2018-04-01] MEDS: FLUCONAZOLE 100 MG TAB PO SCH (09:23)
[2018-04-01] MEDS: SERTRALINE HCL 50 MG TAB PEG SCH (09:23)
[2018-04-01] MEDS: AMLODIPINE BESYLATE 5 MG TAB PEG SCH ×2 (09:23→17:09)
[2018-04-01] MEDS: CLOPIDOGREL BISULFATE 75 MG TAB PEG SCH (09:23)
[2018-04-01] MEDS: CARVEDILOL 12.5 MG TAB PO SCH ×2 (09:24→17:10)
[2018-04-01] MEDS: ISOSORBIDE MONONITRATE 30 MG TAB CR PO SCH (09:24)
[2018-04-01] MEDS: LISINOPRIL 20 MG TAB PO SCH (09:24)
[2018-04-01] MEDS: INSULIN DETEMIR 100 UNIT/ML PEN SQ SCH ×2 (09:24→20:37)
[2018-04-01] MEDS: INSULIN REGULAR, HUMAN 100 UNIT/1 ML 3ML VIAL SQ SCH ×4 (09:25→20:37)
[2018-04-01] MEDS: HEPARIN SOD (PORCINE) 5,000 UNIT/ML VIAL SC SCH ×2 (09:39→20:33)
--- NOTE | 2018-04-01 12:37 | Progress Note ---
DATE: April 01, 2018 CARDIOLOGY PROGRESS NOTE SUBJECTIVE: The patient denies chest pain or shortness of breath. OBJECTIVE VITALS: Temperature 96.3 degrees, pulse 85, respiratory rate 20, blood pressure 193/92, and oxygen saturation 97% on room air. GENERAL: Awake, alert and in no acute distress. LUNGS: Clear to auscultation bilaterally. No wheezes or crackles. CARDIOVASCULAR: Normal rate. Regular rhythm. No murmur. Normal S1 and S2. ABDOMEN: Soft and nontender. EXTREMITIES: No edema. Left hemiparesis is present. The patient is dysarthric and aphasic. CARDIAC MEDICATIONS 1. Isosorbide mononitrate 30 mg p.o. daily. 2. Lisinopril 30 mg p.o. daily. 3. Carvedilol 25 mg p.o. b.i.d. 4. Plavix 75 mg p.o. daily. 5. Amlodipine 5 mg p.o. daily. 6. Atorvastatin 80 mg p.o. at bedtime. LABS: None today. Telemetry is normal sinus rhythm. IMPRESSION 1. Chest pain. 2. Pseudomonas urinary tract infection. 3. History of right cerebrovascular accident with left hemiparesis and aphasia. 4. Hypertension, uncontrolled and labile. 5. Bedbound status. 6. Diabetes mellitus. 7. Hyperlipidemia. 8. Chronic kidney disease, stage 3. RECOMMENDATIONS: There was no evidence of myocardial infarction on serial cardiac biomarkers. We will increase the patient's amlodipine and isosorbide mononitrate given her uncontrolled blood pressure. Given her comorbid diseases and debility, recommend conservative medical therapy for the patient's chest pain. Monitor blood pressure closely. Thank you for this consult. We will continue to follow. Job#: [id number] KIOL
[2018-04-01] MEDS: CEFTRIAXONE SOD 1 GM VIAL IV SCH (12:45)
[2018-04-01] MEDS: ACETAMINOPHEN 325 MG TAB PEG PRN (14:13)
[2018-04-01] MEDS: MIRTAZAPINE 15 MG TAB PEG SCH (20:31)
[2018-04-01] MEDS: ATORVASTATIN 40 MG TAB PO SCH (20:32)
[2018-04-02] VITALS (7 sets, daily range): BP systolic 94–154; BP diastolic 55–69
[2018-04-02] MEDS: NITROGLYCERIN 2% OINT 1 GM PKT TOP SCH ×2 (05:46→11:47)
[2018-04-02 07:12] LABS: BASOPHILS % 0.4 % (0.0-1.0); EOSINOPHILS # (AUTO) 0.1 (0.0-0.4); EOSINOPHILS % 1.5 % (0.0-6.0); HEMATOCRIT 27.7 % (34.2-44.1); HEMOGLOBIN 9.1 g/dL (12.0-16.0); LYMPHOCYTES # (AUTO) 2.6 (1.0-3.2); LYMPHOCYTES % 31.8 % (18.0-39.1); MEAN CORPUSCULAR HEMOGLOBIN 26.9 pg (28-32); MEAN CORPUSCULAR HGB CONC 32.9 g/dL (31-35); MONOCYTES # (AUTO) 0.5 (0.2-0.8); MONOCYTES % 5.9 % (4.4-11.3); NEUTROPHILS # (AUTO) 4.8 (2.1-6.9); NEUTROPHILS % 59.5 % (38.7-80.0); PLATELET COUNT 324 x10e3/uL (140-360); RED BLOOD COUNT 3.38 x10e6/uL (3.6-5.1); RED CELL DISTRIBUTION WIDTH 15.4 % (11.7-14.4)
[2018-04-02 07:21] LABS: ALBUMIN/GLOBULIN RATIO 0.8 (0.8-2.0); ANION GAP 14.5 mmol/L (8-16); CALCIUM 9.7 mg/dL (8.4-10.2); CREATININE, SERUM 1.93 mg/dL (0.57-1.11); POTASSIUM 4.5 mmol/L (3.5-5.1)
[2018-04-02] MEDS: POLYETHYLENE GLYCOL 3350 17 GM PACK PEG SCH (07:35)
[2018-04-02] MEDS: SERTRALINE HCL 50 MG TAB PEG SCH (08:58)
[2018-04-02] MEDS: FAMOTIDINE 20 MG TAB PEG SCH ×2 (08:58→16:50)
[2018-04-02] MEDS: CARVEDILOL 12.5 MG TAB PO SCH ×2 (08:58→16:50)
[2018-04-02] MEDS: CLOPIDOGREL BISULFATE 75 MG TAB PEG SCH (08:58)
[2018-04-02] MEDS: AMLODIPINE BESYLATE 5 MG TAB PEG SCH ×2 (08:58→16:50)
[2018-04-02] MEDS: FLUCONAZOLE 100 MG TAB PO SCH (08:58)
[2018-04-02] MEDS: ISOSORBIDE MONONITRATE 30 MG TAB CR PO SCH (08:58)
[2018-04-02] MEDS: INSULIN DETEMIR 100 UNIT/ML PEN SQ SCH ×2 (09:01→20:46)
[2018-04-02] MEDS: INSULIN REGULAR, HUMAN 100 UNIT/1 ML 3ML VIAL SQ SCH ×4 (09:01→20:48)
[2018-04-02] MEDS: HEPARIN SOD (PORCINE) 5,000 UNIT/ML VIAL SC SCH ×2 (09:01→20:45)
[2018-04-02] MEDS: LISINOPRIL 20 MG TAB PO SCH (09:01)
[2018-04-02] MEDS: CEFTRIAXONE SOD 1 GM VIAL IV SCH (12:06)
--- NOTE | 2018-04-02 16:48 | Progress Note ---
DATE: April 02, 2018 CARDIOLOGY PROGRESS NOTE SUBJECTIVE: The patient denies chest pain or shortness of breath. OBJECTIVE VITALS: Temperature 98.5 degrees, pulse 70, respiratory rate 20, blood pressure 115/59, oxygen saturation 97% on room air. GENERAL: Awake, alert and in no acute distress. LUNGS: Clear to auscultation bilaterally. No wheezes or crackles. CARDIOVASCULAR: Normal rate. Regular rhythm. No murmur. Normal S1 and S2. ABDOMEN: Soft and nontender. EXTREMITIES: No edema. NEURO: Left hemiparesis is present. The patient is dysarthric and aphasic. CARDIAC MEDICATIONS 1. Lisinopril 30 mg p.o. daily. 2. Isosorbide mononitrate 60 mg p.o. daily. 3. Amlodipine 5 mg p.o. b.i.d. 4. Carvedilol 25 mg p.o. b.i.d. 5. Plavix 75 mg p.o. daily. 6. Atorvastatin 80 mg p.o. at bedtime. LABS: WBC 8.07, hemoglobin 9.1, hematocrit 27.7, and platelets 324,000. Sodium 150, potassium 4.5, chloride 112, CO2 28, BUN 85, creatinine 1.93. Telemetry is normal sinus rhythm. IMPRESSION 1. Chest pain. 2. Pseudomonas urinary tract infection. 3. Hypernatremia. 4. History of right cerebrovascular accident with left hemiparesis and aphasia. 5. Hypertension, better controlled. 6. Diabetes mellitus. 7. Hyperlipidemia. 8. Acute kidney injury. 9. Bedbound status. RECOMMENDATIONS: There is no evidence of myocardial infarction on serial cardiac biomarkers. The patient's blood pressure is improved. Will continue to monitor and adjust as needed. Given her comorbid diseases and debility, recommend conservative medical therapy for the patient's chest pain. Noted increase in free water flushes for the patient's hypernatremia. Discontinue nitropaste. Thank you for this consult. We will continue to follow. Job#: [id number] KILO
[2018-04-02] MEDS: ACETAMINOPHEN 325 MG TAB PEG PRN (19:15)
[2018-04-02] MEDS: MIRTAZAPINE 15 MG TAB PEG SCH (20:46)
[2018-04-02] MEDS: ATORVASTATIN 40 MG TAB PO SCH (20:47)
[2018-04-03 00:07] VITALS: BP 136/72
[2018-04-03 04:38] VITALS: BP 154/72
[2018-04-03 07:10] LABS: BASOPHILS # (AUTO) 0.1 (0.0-0.1); BASOPHILS % 0.6 % (0.0-1.0); EOSINOPHILS # (AUTO) 0.3 (0.0-0.4); HEMATOCRIT 24.8 % (34.2-44.1); HEMOGLOBIN 8.1 g/dL (12.0-16.0); LYMPHOCYTES # (AUTO) 3.1 (1.0-3.2); LYMPHOCYTES % 36.3 % (18.0-39.1); MEAN CORPUSCULAR HGB CONC 32.7 g/dL (31-35); MEAN CORPUSCULAR VOLUME 82.7 fL (81-99); MONOCYTES # (AUTO) 0.5 (0.2-0.8); NEUTROPHILS # (AUTO) 4.5 (2.1-6.9); NEUTROPHILS % 53.2 % (38.7-80.0); PLATELET COUNT 293 x10e3/uL (140-360); RED CELL DISTRIBUTION WIDTH 15.2 % (11.7-14.4)
[2018-04-03 07:38] LABS: ALBUMIN 2.8 g/dL (3.5-5.0); ALBUMIN/GLOBULIN RATIO 0.8 (0.8-2.0); ANION GAP 14.5 mmol/L (8-16); CREATININE, SERUM 2.02 mg/dL (0.57-1.11); POTASSIUM 4.5 mmol/L (3.5-5.1)
[2018-04-03] MEDS: POLYETHYLENE GLYCOL 3350 17 GM PACK PEG SCH (07:47)
[2018-04-03 08:00] VITALS: BP 136/63
[2018-04-03] MEDS: CLOPIDOGREL BISULFATE 75 MG TAB PEG SCH (09:02)
[2018-04-03] MEDS: FAMOTIDINE 20 MG TAB PEG SCH ×2 (09:02→16:37)
[2018-04-03] MEDS: SERTRALINE HCL 50 MG TAB PEG SCH (09:02)
[2018-04-03] MEDS: AMLODIPINE BESYLATE 5 MG TAB PEG SCH ×2 (09:02→16:26)
[2018-04-03] MEDS: FLUCONAZOLE 100 MG TAB PO SCH (09:03)
[2018-04-03] MEDS: LISINOPRIL 20 MG TAB PO SCH (09:03)
[2018-04-03] MEDS: ISOSORBIDE MONONITRATE 30 MG TAB CR PO SCH (09:03)
[2018-04-03] MEDS: CARVEDILOL 12.5 MG TAB PO SCH ×2 (09:03→16:26)
[2018-04-03] MEDS: INSULIN REGULAR, HUMAN 100 UNIT/1 ML 3ML VIAL SQ SCH ×3 (10:01→16:37)
[2018-04-03] MEDS: INSULIN DETEMIR 100 UNIT/ML PEN SQ SCH (10:02)
[2018-04-03] MEDS: HEPARIN SOD (PORCINE) 5,000 UNIT/ML VIAL SC SCH (10:02)
--- NOTE | 2018-04-03 10:26 | Discharge Summary ---
I am covering for Dr. Mariano. Ms. Sanford is a 62-year-old female, intermediate resident, with history of CVA with left hemiparesis and history of chronic kidney disease and diabetes. She came to the emergency room with some chest pain, also worsening of her aphasia. She was seen by corrections unit supervisor and neurologist. At the present point, the plan is to discharge her back to the intermediate. On physical examination, she opens her eyes and follows very simple commands. Temperature is 98.2, blood pressure 154/72. The heart is regular rate. Lungs have poor inspiratory effort. Abdomen is soft. On the blood work, the white count is 8.44, hemoglobin 8.1, hematocrit 24.8. Potassium 4.5, creatinine 2.02, glucose 161. Urine shows Pseudomonas stutzeri and Edilia albicans. Brain MRI shows no acute intracranial abnormality. ASSESSMENT AND PLAN 1. Chest pain. She was seen by the corrections unit supervisor. 2. Cerebrovascular accident with left hemiparesis, but no acute findings. 3. Dementia. 4. Hypertension. 5. Congestive heart failure. 6. Chronic kidney disease, stage 3. 7. Diabetes with chronic kidney disease, stage 3. 8. Urinary tract infection with pseudomonas. 9. Anemia. At the present time, we are going to try to get a Hemoccult. If the patient goes back to SNF, continue IV antibiotics. She is going to have to continue to monitor hemoglobin and hematocrit. Please see home medication reconciliation list. TWIN CHANG MD Job#: [id number]
[2018-04-03 12:00] VITALS: BP 159/73
[2018-04-03] MEDS: CEFTRIAXONE SOD 1 GM VIAL IV SCH (12:34)
--- NOTE | 2018-04-03 13:05 | Progress Note ---
DATE: April 03, 2018 CARDIOLOGY PROGRESS NOTE SUBJECTIVE: The patient denies chest pain or shortness of breath. OBJECTIVE VITALS: Temperature 97.3 degrees, pulse 66, respiratory rate 18, blood pressure 136/63, oxygen saturation 97% on room air. GENERAL: Awake, alert and in no acute distress. LUNGS: Clear to auscultation bilaterally. No wheezes or crackles. CARDIOVASCULAR: Normal rate. Regular rhythm. No murmur. Normal S1 and S2. ABDOMEN: Soft and nontender. EXTREMITIES: No edema. NEURO: Left hemiparesis is present. The patient is dysarthric and aphasic. CARDIAC MEDICATIONS 1. Isosorbide mononitrate 60 mg p.o. daily. 2. Lisinopril 30 mg p.o. daily. 3. Carvedilol 25 mg p.o. b.i.d. 4. Amlodipine 5 mg p.o. b.i.d. 5. Plavix 75 mg p.o. daily. 6. Atorvastatin 80 mg p.o. at bedtime. LABS: WBC 8.44, hemoglobin 8.1, hematocrit 24.8, and platelets 293,000. Sodium 146, potassium 4.5, chloride 109, CO2 27, BUN 84, creatinine 2.02. Stool occult blood positive. IMPRESSION 1. Chest pain. 2. Pseudomonas urinary tract infection. 3. Acute kidney injury. 4. Gyldv-jg-bqcfxqy anemia, suspect gastrointestinal blood loss given positive stool occult blood. 5. Hypernatremia. 6. History of right cerebrovascular accident with left hemiparesis and aphasia. 7. Hypertension. 8. Diabetes mellitus. 9. Hyperlipidemia. 10. Bedbound status. RECOMMENDATIONS: There was no evidence of myocardial infarction on serial cardiac biomarkers. The patient's blood pressure has improved. Monitor for now. Further titration as needed. Continue current cardiac medications. Evaluation of [id number] anemia with possible GI blood loss per primary service. Given her comorbid diseases and debility, recommend conservative medical therapy. Thank you for this consult. We will continue to follow. Job#: [id number]
--- NOTE | 2018-04-03 15:22 | Consultation ---
DATE OF CONSULTATION: GASTROENTEROLOGY CONSULTATION REFERRING PHYSICIAN: Dr. Escobedo. REASON FOR CONSULTATION: Anemia, FOBT positive. HISTORY OF PRESENT ILLNESS: Ms. Sanford is a 62-year-old woman with history of CVA and aphasia. She was admitted with UTI and seen by Cardiology as well as by Neurology. She has improved. There has been no overt bleeding. She is tolerating tube feeds. She has noticed no abdominal pain, melena or hematochezia. She is otherwise ready to be discharged today. PAST MEDICAL HISTORY 1. CVA. 2. Aphasia. 3. Hypertension. 4. Hemiparesis. 5. Diabetes. 6. Dyslipidemia. 7. Depression. MEDICATIONS AND ALLERGIES: Reviewed. Please see MAR medication reconciliation form. SOCIAL: No alcohol, tobacco or illicit substance. FAMILY HISTORY: Positive for heart disease. REVIEW OF SYSTEMS: Ten-system review is limited; however, negative except for her chronic neurologic deficit. PHYSICAL EXAMINATION IN GENERAL: She has flat affect. Anicteric. NECK: Supple. LUNGS: Clear. CARDIOVASCULAR: S1/S2. ABDOMEN: Soft, nontender, nondistended. Normal bowel sounds. There is a clean-looking PEG tube with tube feeds in appropriate position in the abdomen. EXTREMITIES: No clubbing, cyanosis. PSYCHIATRIC: Calm. NEUROLOGIC: Left hemiparesis. The electronic health record is reviewed for laboratory and radiologic studies as well as history. ASSESSMENT: At the current time would place her on Protonix. Anemia and FOBT can be worked up as an outpatient. I understand she is likely to be discharged today. I will have my office follow up with her. Thank you very much for asking me to see Ms. Sanford. Any questions or concerns, please do not hesitate to contact me. Job#: [id number]
[2018-04-04] MEDS ORDERED: PANTOPRAZOLE SOD 40 MG TABEC PO SCH (07:30)
== END 2018-04-03 19:21 | DRG 698 ==
LOC: ER 18:31 → ERHOLD 23:48 → IMCU 03-28 01:58 → OBSVTOIN 03-29 11:26 → MED/SURG 03-29 21:38
PROVIDERS: ADMIT Internal Medicine; ATTEND Internal Medicine
DX: T83.511A Infection and inflammatory reaction due to indwelling urethral catheter, initial encounter (principal); G93.41 Metabolic encephalopathy; B37.49 Other urogenital candidiasis; I13.0 Hypertensive heart and chronic kidney disease with heart failure and stage 1 through stage 4 chronic kidney disease, or unspecified chronic kidney disease; I69.354 Hemiplegia and hemiparesis following cerebral infarction affecting left non-dominant side; R47.01 Aphasia; N17.9 Acute kidney failure, unspecified; E87.0 Hyperosmolality and hypernatremia; N39.0 Urinary tract infection, site not specified; B96.5 Pseudomonas (aeruginosa) (mallei) (pseudomallei) as the cause of diseases classified elsewhere; E11.22 Type 2 diabetes mellitus with diabetic chronic kidney disease; E11.65 Type 2 diabetes mellitus with hyperglycemia; I50.9 Heart failure, unspecified; N18.3 Chronic kidney disease, stage 3 (moderate); Z87.891 Personal history of nicotine dependence; Z79.4 Long term (current) use of insulin; I69.322 Dysarthria following cerebral infarction; R07.89 Other chest pain; F03.90 Unspecified dementia, unspecified severity, without behavioral disturbance, psychotic disturbance, mood disturbance, and anxiety; K21.9 Gastro-esophageal reflux disease without esophagitis; E78.5 Hyperlipidemia, unspecified; F32.9 Major depressive disorder, single episode, unspecified; D63.8 Anemia in other chronic diseases classified elsewhere; D50.0 Iron deficiency anemia secondary to blood loss (chronic); R19.5 Other fecal abnormalities; Z93.1 Gastrostomy status; R13.10 Dysphagia, unspecified; R53.81 Other malaise; R26.9 Unspecified abnormalities of gait and mobility; Z79.02 Long term (current) use of antithrombotics/antiplatelets; Z79.82 Long term (current) use of aspirin
CPT/HCPCS: 36415; 70450; 70551; 71045; 80053; 80061; 81001; 82270; 82550; 82553; 82948; 83605; 83735; 83880; 84443; 84484; 85025; 85610; 85730; 87040; 87086; 87186; 87400; 93005; 93306; 96372; 97139; 99284; G0378; J0360; J0696; J1644